=== PATIENT | male | born 1950 | race Caucasian/White ===

== ENCOUNTER 2019-12-21 18:35 | Emergency (ER) | payer OTHER, MEDICARE, SELFPAY ==
--- NOTE | ~2019-12-21 | XR_ITS ---
EXAMINATION: XR elbow RT min 3V EXAM DATE: 12/21/2019 19:08 INDICATION: Initial encounter following injury, with pain of the right elbow. TECHNIQUE: Right elbow frontal, lateral with flexion, and oblique projections obtained and reviewed. There is no prior study for comparison. FINDINGS: Right elbow anterior humeral line intact. There is acute nondisplaced closed posttraumati c fracture through the right radial head. There is evidence of a joint hemarthrosis. No other suspici ous findings. IMPRESSION: Acute nondisplaced right radial head fracture. Reviewed, dictated and finalized at location A.
--- NOTE | ~2019-12-21 | XR_ITS ---
EXAMINATION: XR shoulder RT min 2V EXAM DATE: 12/21/2019 19:08 INDICATION: Initial encounter following injury, with pain of the right elbow. TECHNIQUE: The following right shoulder projections obtained: frontal projection with internal rotati on, frontal projection with external rotation, Grashey, and scapular Y view (4+ views). Comparison is made to prior examination from 01/28/2019. FINDINGS: Sternotomy wires. No evidence of right shoulder rotator cuff calcific tendinosis. There i s mild glenohumeral and acromioclavicular joint primary osteoarthritis. There are no acute fractures or dislocations identified. There is no subcutaneous gas. The soft tissue is unremarkable. There is aortic arteriosclerosis. IMPRESSION: No acute osseous findings. Reviewed, dictated and finalized at location A. IMPRESSION: No acute osseous findings.
[2019-12-21 18:37] VITALS: BP 149/52; PULSE 60; RESP 18; TEMP 36.3; O2SAT 96
[2019-12-21 19:07] VITALS: BP 148/68; PULSE 56; RESP 18; TEMP 36.6; O2SAT 95
[2019-12-21] MEDS: ACETAMINOPHEN 500 MG TABLET 1000 MG PO (20:03)
--- NOTE | 2019-12-21 20:25 | ED.UPPEXIN ---
HPI - Extremity Injury (Upper) General Chief Complaint: Extremity Injury, Upper <RYAN Santos Last Filed: 12/21/19 20:33> Stated Complaint: fall <RYAN Santos Last Filed: 12/21/19 20:33> Time Seen by Provider: 12/21/19 19:29 <RYAN Santos Last Filed: 12/21/19 20:33> Source: patient <RYAN Santos Last Filed: 12/21/19 20:33> Mode of arrival: ambulatory <RYAN Santos Last Filed: 12/21/19 20:33> Limitations: no limitations <RYAN Santos Last Filed: 12/21/19 20:33> History of Present Illness HPI narrative: This is a 69 year old male that presents to the ER for a fall today. Reports he was walking down stairs and tripped on the last step. Reports landing on his right side. Denies hitting his head or loss of consciousness. Reports pain of his right shoulder and right elbow. Denies numbness or decreased ROM. <RYAN Santos Last Filed: 12/21/19 20:33> Related Data Home Medications: Home Medications Medication Instructions Recorded Confirmed amlodipine 10 mg tablet 10 mg PO DAILY 08/25/19 levothyroxine 50 mcg tablet 50 mcg PO DAILY 08/25/19 metoprolol tartrate 50 mg tablet 50 mg PO Q12H 08/25/19 insulin aspart U-100 100 unit/mL 20 unit SUB-Q TID ml 11/11/19 subcutaneous solution insulin glargine 100 unit/mL (3 30 unit SUB-Q DAILY ml 11/11/19 mL) subcutaneous pen <RYAN Santos Last Filed: 12/21/19 20:33> Allergies/Adverse Reactions: Allergies Allergy/AdvReac Type Severity Reaction Status Date / Time Penicillins Allergy Unknown Rash Verified 11/11/19 14:33 BIRD FEATHERS Allergy Mild COUGHING Uncoded 08/25/19 11:04 <RYAN Santos Last Filed: 12/21/19 20:33> Review of Systems Review of Systems: Narrative: CONSTITUTIONAL: Denies fever MUSCULOSKELETAL: Reports joint pain, and myalgia. NEUROLOGIC: Denies numbness, or weakness. <Gogo Sheriff PA-C - Last Filed: 12/21/19 20:33> All systems reviewed & are unremarkable except as noted in HPI and below <Gogo Sheriff PA-C - Last Filed: 12/21/19 20:33> PMFSH Past Medical History Medical History: Medical History (Updated 12/21/19 @ 20:32 by Gogo Sheriff PA-C) Acromioclavicular joint arthritis Chronic kidney disease, stage III (moderate) Coronary artery disease involving [place] coronary artery of [place] heart History of stroke with current residual effects HLD (hyperlipidemia) Hypothyroidism Right shoulder pain Rotator cuff tear Type 2 diabetes mellitus with hyperglycemia (03/30/16) <Gogo Sheriff PA-C - Last Filed: 12/21/19 20:33> Surgical History Surgical History: Surgical History (Updated 12/21/19 @ 20:29 by Gogo Sheriff PA-C) S/P coronary artery stent placement <Gogo Sheriff PA-C - Last Filed: 12/21/19 20:33> Social History Social History: Social History (Updated 11/11/19 @ 14:33 by Heather Rose) Smoking status: Never smoker Second hand tobacco smoke exposure: No Alcohol intake: never Substance use: never Substance use type: does not use Gender identity (if verbalized by the patient): Male <Gogo Sheriff PA-C - Last Filed: 12/21/19 20:33> Exam Narrative: Exam Narrative: GENERAL: Well-appearing, well-nourished, and in no acute distress. HEAD: Normocephalic, atraumatic. EYES: EOMI. CHEST: Clear to auscultation. No respiratory distress. No wheezes rales or rhonchi HEART: Regular rate and rhythm. No murmur heard. Normal peripheral pulses. EXTREMITIES: Normal range of motion. No obvious deformity. Mild swelling and bruising to the right elbow. Normal sensation. Normal radial pulses SKIN: Warm, dry, no rash. NEURO: No focal deficits. Alert and oriented x3. PSYCH: Normal mood and affect <Gogo Sheriff PA-C - Last Filed: 12/21/19 20:33> Course Consultations Consultation #1: Spoke with Dr. Wallace about patient work-up will follow-up
[2019-12-21 20:58] VITALS: BP 134/74; PULSE 53; RESP 16; TEMP 36.6; O2SAT 95
== END 2019-12-21 21:10 | disposition home or self-care (01) ==
PROVIDERS: Emergency Provider General Practice; PCP Family Medicine
DX: M25.511 Pain in right shoulder (principal); S52.124A Nondisplaced fracture of head of right radius, initial encounter for closed fracture; M19.019 Primary osteoarthritis, unspecified shoulder; E11.22 Type 2 diabetes mellitus with diabetic chronic kidney disease; E11.65 Type 2 diabetes mellitus with hyperglycemia; N18.3 Chronic kidney disease, stage 3 (moderate); Z79.4 Long term (current) use of insulin; I25.10 Atherosclerotic heart disease of native coronary artery without angina pectoris; E78.5 Hyperlipidemia, unspecified; E03.9 Hypothyroidism, unspecified; Z95.5 Presence of coronary angioplasty implant and graft; W10.9XXA Fall (on) (from) unspecified stairs and steps, initial encounter
CPT/HCPCS: 73030; 73080; 99284; A4565; A9270

== ENCOUNTER 2020-01-20 11:55 | Outpatient (CLI) | payer MEDICARE, SELFPAY ==
--- NOTE | ~2020-01-20 | US_ITS ---
EXAMINATION:US venous doppler LE BI INDICATION:Leg edema TECHNIQUE: Multiple grayscale, color flow and Doppler images of the lower extremity deep venous syste ms were obtained and reviewed. COMPARISON:Ultrasound dated 03/30/2019 FINDINGS: The common femoral, superficial femoral and popliteal veins demonstrate normal respiratory variation, augmentation and compressibility. Color flow is also seen within the posterior tibial, pe roneal, greater saphenous and profunda veins. IMPRESSION: 1: No lower extremity deep venous thrombosis. Reviewed, dictated and finalized at location A.
[2020-01-20 12:36] LABS: Basophils Percent Auto 0.5 % (0.2-1.2); Eosinophils Absolute Auto 0.2 K/mm3 (0-0.3); Eosinophils Percent Auto 3.8 % (0-4.4); Hematocrit 47.3 % (42.0-52.0); Hemoglobin 15.5 g/dL (14.0-18.0); Immature Granulocyte Absolute 0.03 K/mm3 (0.00-0.031); Immature Granulocyte Percent A 0.5 % (0-0.5); Immature Platelet Fraction Pct 3.5 % (0.9-11.2); Lymphocytes Absolute Auto 1.43 K/mm3 (0.9-3.2); Mean Corpuscular HGB Conc 32.8 g/dl (32-36); Mean Corpuscular Hemoglobin 27.1 pg (26-34); Mean Corpuscular Volume 82.5 fl (80-100); Mean Platelet Volume 10.8 fl (7.4-10.4); Monocytes Absolute Auto 0.5 K/mm3 (0.1-0.6); Monocytes Percent Auto 9.8 % (2.6-8.5); Neutrophils Absolute Auto 3.3 K/mm3 (1.3-6.7); Neutrophils Percent Auto 59.4 % (45.5-73.1); Platelet Count Result 139 k/mm3 (150-375); Red Blood Count 5.73 M/mm3 (4.6-6.20); Red Cell Distribution Width 14.4 % (11.5-14.5); White Blood Count 5.5 K/mm3 (4.5-10.0)
[2020-01-20 13:52] LABS: Blood Urea Nitrogen 20 mg/dL (9-20); Calcium 8.6 mg/dL (8.4-10.2); Carbon Dioxide 29 mmol/L (22-30); Chloride 102 mmol/L (98-107); Estimated Glomerular Filt Rate 55; Glucose 156 mg/dL (75-110); Sodium 136 mmol/L (137-145)
[2020-01-20 14:01] LABS: NT Pro B Type Natriuretic Pept 147 PG/ML (5-100)
== END 2020-01-20 11:56 | disposition home or self-care (01) ==
PROVIDERS: PCP Family Medicine; Visit Provider Physician Assistant
DX: R06.02 Shortness of breath (principal); I11.9 Hypertensive heart disease without heart failure; R60.9 Edema, unspecified; M79.606 Pain in leg, unspecified
CPT/HCPCS: 36415; 80048; 83880; 84443; 85025; 85055; 93970

== ENCOUNTER 2020-07-01 07:53 | Outpatient (CLI) | payer MEDICARE, SELFPAY ==
--- NOTE | ~2020-07-01 | US_ITS ---
EXAMINATION: US art doppler w press BERHANE RODRIGUEZ EXAM DATE: 07/01/2020 08:44 INDICATION: I73.9 - Peripheral vascular disease, unspecified PVD. TECHNIQUE: Segmental pressures and plethysmographic and Doppler waveforms of the brachial and lower e xtremity arteries were obtained. There is no prior study for comparison. FINDINGS: Right and left brachial artery pressures of 124 mm Hg and 136 mm Hg, respectively, are concordant (no rmal difference <= 30 mmHg). RIGHT LEG: The ankle-brachial index (VEE) is 1.20 (normal >= 0.9-1). The great toe-brachial index (TBI) is 0.82 (normal >= 0.65). The lower extremity ratios, segmental pressure gradients as follows; Proximal superficial femoral artery:- Could not obtain ( mmHg). Distal superficial femoral artery: ----- Could not obtain ( mmHg). Popliteal: Could not obtain ( mmHg). Dorsalis pedis: 1.20 (163 mmHg). Posterior tibial: 1.08 (147 mmHg). (Normal gradients <= 20-30 mmHg between adjacent levels on the same leg or the same levels on the two legs). Arterial waveforms are biphasic common femoral, monophasic below. LEFT LEG: The ankle-brachial index (VEE) is 1.20 (normal >= 0.9-1). The great toe-brachial index (TBI) is 0.97 (normal >= 0.65). The lower extremity ratios, segmental pressure gradients as follows; Proximal superficial femoral artery:- Could not obtain ( mmHg). Distal superficial femoral artery: ----- Could not obtain ( mmHg). Popliteal: Could not obtain ( mmHg). Dorsalis pedis: 1.13 (154 mmHg). Posterior tibial: 1.20 (163 mmHg). (Normal gradients <= 20-30 mmHg between adjacent levels on the same leg or the same levels on the two legs). Arterial waveforms are biphasic common femoral, monophasic below. IMPRESSION: 1. Right ankle-brachial index 1.20, normal. 2. Left ankle-brachial index 1.20, normal. Reviewed, dictated and finalized at location A. 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
== END 2020-07-01 07:54 | disposition home or self-care (01) ==
LOC: ANHIMG 07:54
PROVIDERS: PCP Family Medicine; Visit Provider Internal Medicine Critical Care Medicine
DX: I70.203 Unspecified atherosclerosis of native arteries of extremities, bilateral legs (principal)
CPT/HCPCS: 93923

== ENCOUNTER 2021-02-15 09:15 | Outpatient (CLI) | payer MEDICARE, SELFPAY ==
--- NOTE | ~2021-02-15 | US_ITS ---
EXAMINATION: US carotid duplex BI DATE: 02/15/2021 10:21 INDICATION: Transient cerebral ischemic attack. TECHNIQUE: Grayscale, color Doppler, and pulsed Doppler images of the cervical carotid arteries were obtained. The degree of vessel stenosis is placed in one of the following categories: normal, <50%, 5 0-69%, >=70% but less than near-occlusion, near-occlusion, or total occlusion. Note that percent sten osis relative to normal distal artery lumen diameter is indirectly measured from velocity measurement s as described by Jesus, et al. Radiology 2003; 229:340-346. COMPARISON: None. FINDINGS: RIGHT: The right common carotid artery (CCA) peak systolic velocity (PSV) is 57 cm/s. The right internal car otid artery (ICA) PSV is 77 cm/s. The right ICA end-diastolic velocity (EDV) is 16 cm/s. The right IC A/CCA PSV ratio is 1.3. Grayscale and color Doppler images yield an estimate of <50% diameter reducti on from plaque in the ICA. There is antegrade flow in the right vertebral artery. LEFT: The left CCA PSV is 72 cm/s. The left ICA PSV is 69 cm/s. The left ICA EDV is 10 cm/s. The left ICA/C CA PSV ratio is 0.9. Grayscale and color Doppler images yield an estimate of <50% diameter reduction from plaque in the ICA. There is antegrade flow in the left vertebral artery. IMPRESSION: 1. <50% stenosis in the right internal carotid artery. 2. <50% stenosis in the left internal carotid artery. Reviewed, dictated and finalized at location A.
== END 2021-02-15 09:16 | disposition home or self-care (01) ==
PROVIDERS: PCP Family Medicine; Visit Provider Family Medicine
DX: I65.23 Occlusion and stenosis of bilateral carotid arteries (principal); R07.89 Other chest pain
CPT/HCPCS: 93880

== ENCOUNTER → 2021-04-11 15:08 | Outpatient (CLI) | payer MEDICARE, SELFPAY ==
--- NOTE | ~2021-04-11 | XR_ITS ---
EXAMINATION: XR chest 2V DATE: 04/11/2021 16:10 INDICATION: COVID-19 pneumonia. TECHNIQUE: Frontal and lateral views of the chest were obtained. COMPARISON: Chest 2 views 07/08/2018, chest CT 03/30/2019 FINDINGS: There is no pneumonia, pleural effusion, or pneumothorax. Cardiomegaly is noted. Median talha rnotomy wires and mediastinal surgical clips are seen, likely from prior coronary artery bypass graft ing. There is a closure device of the left atrial appendage. There are prominent paracardial fat pads . IMPRESSION: 1. Cardiomegaly. Reviewed, dictated and finalized at location A. IMPRESSION: 1. Cardiomegaly.
== END ==
PROVIDERS: PCP Family Medicine; Visit Provider Physician Assistant
DX: U07.1 COVID-19 (principal); I51.7 Cardiomegaly
CPT/HCPCS: 71046

== ENCOUNTER 2021-04-25 12:40 | Observation (INO) | payer MEDICARE, SELFPAY ==
[2021-04-25] VITALS (24 sets, daily range): BP systolic 109–155; BP diastolic 66–92; PULSE 59–86; RESP 14–26; TEMP 35.9–36.8; O2SAT 91–100; BMI 41.4
--- NOTE | ~2021-04-25 | XR_ITS ---
EXAMINATION: XR chest 2V EXAM DATE: 04/25/2021 13:07 INDICATION: Substernal chest pain. TECHNIQUE: Frontal and lateral projections of the chest obtained and reviewed. Comparison is made to prior examination from 04/11/2021. FINDINGS: Sternotomy wires are present without findings to suggest sternal dehiscence. The lungs are clear. There are no pleural effusions. Cardiac silhouette is prominent but magnified on this AP te chnique. There is no pneumothorax suspected. Patient has diffuse idiopathic skeletal hyperostosis (DISH). IMPRESSION: No acute cardiopulmonary findings. Reviewed, dictated and finalized at location B.
--- NOTE | 2021-04-25 12:39 | ECG_ITS ---
Measurements Intervals [place] Rate: 66 P: 18 WV: 197 QRS: 16 QRSD: 104 T: 43 QT: 400 QTc: 421 Interpretive Statements SINUS RHYTHM VENTRICULAR PREMATURE COMPLEX LOW QRS VOLTAGE IN PRECORDIAL LEADS INCOMPLETE RIGHT BUNDLE BRANCH BLOCK INFERIOR INFARCT, AGE INDETERMINATE ABNORMAL ECG Electronically Signed On 04-25-2021 12:49:43 CDT by Nolan Spap D.O.
[2021-04-25 12:57] LABS: Basophils Absolute Auto 0.1 K/mm3 (0.0-0.1); Basophils Percent Auto 1.1 % (0.2-1.2); Eosinophils Absolute Auto 0.4 K/mm3 (0-0.3); Eosinophils Percent Auto 6.4 % (0-4.4); Hematocrit 44.4 % (42.0-52.0); Hemoglobin 14.3 g/dL (14.0-18.0); Immature Granulocyte Absolute 0.01 K/mm3 (0.00-0.031); Immature Granulocyte Percent A 0.2 % (0-0.5); Lymphocytes Absolute Auto 1.61 K/mm3 (0.9-3.2); Lymphocytes Percent Auto 29.6 % (18.3-44.2); Mean Corpuscular HGB Conc 32.2 g/dl (32-36); Mean Corpuscular Hemoglobin 28.5 pg (26-34); Mean Corpuscular Volume 88.4 fl (80-100); Mean Platelet Volume 11.8 fl (7.4-10.4); Monocytes Absolute Auto 0.5 K/mm3 (0.1-0.6); Monocytes Percent Auto 8.8 % (2.6-8.5); Neutrophils Absolute Auto 2.9 K/mm3 (1.3-6.7); Neutrophils Percent Auto 53.9 % (45.5-73.1); Platelet Count Result 189 k/mm3 (150-375); Red Blood Count 5.02 M/mm3 (4.6-6.20); Red Cell Distribution Width 15.3 % (11.5-14.5); White Blood Count 5.4 K/mm3 (4.5-10.0)
[2021-04-25 13:11] LABS: INR 0.9; Prothrombin Time 12.5 Seconds (11.1-14.7)
[2021-04-25 13:12] LABS: Partial Thromboplastin Time 26.4 SECONDS (22.3-36.8)
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
[2021-04-25 13:57] LABS: Anion Gap 4 mmol/L (8-16); Blood Urea Nitrogen 26 mg/dL (9-20); Carbon Dioxide 26 mmol/L (22-30); Chloride 108 mmol/L (98-107); Estimated CRCL calculation 61 ml/min; Estimated Glomerular Filt Rate 50; Glucose 176 mg/dL (65-110); Potassium 4.4 mmol/L (3.4-5.0); Sodium 138 mmol/L (137-145)
[2021-04-25 14:10] LABS: Troponin I 0.018 ng/mL (0.000-0.034)
--- NOTE | 2021-04-25 16:28 | PC.NURSE ---
Spoke with pt because about requesting to be transferred to [facility]. Pt requesting to find out the wait time for a bed at [facility]. Dr Padilla to speak with pt's road inspector & access line. Informed pt & family of waiting a call back from [facility]
[2021-04-25 18:18] LABS: Troponin I 0.018 ng/mL (0.000-0.034)
--- NOTE | 2021-04-25 18:46 | PC.NURSE ---
Pt arrived to [facility] from the ER at 1843. No complaints at this time
[2021-04-25 21:46] LABS: Troponin I 0.021 ng/mL (0.000-0.034)
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
[2021-04-25] MEDS: hydrALAZINE HCL 25 MG TABLET PO (22:32)
[2021-04-25] MEDS: METOPROLOL TARTRATE 50 MG TAB PO (22:32)
[2021-04-25] MEDS: GABAPENTIN 300 MG CAPSULE PO (22:33)
[2021-04-25] MEDS: INSULIN ASPART (*BKC) 100 UNITS/ML 10 UNITS SUB-Q (22:48)
[2021-04-26] VITALS: BP 129/92; PULSE 54; PULSE 56; RESP 14; TEMP 36.7; O2SAT 96
[2021-04-26 02:00] VITALS: PULSE 53
[2021-04-26 04:00] VITALS: BP 133/48; PULSE 51; RESP 16; TEMP 36.6; O2SAT 94
[2021-04-26] MEDS: LEVOTHYROXINE SODIUM 50 MCG TABLET PO (05:33)
[2021-04-26 05:51] LABS: Basophils Absolute Auto 0.1 K/mm3 (0.0-0.1); Basophils Percent Auto 1.1 % (0.2-1.2); Eosinophils Absolute Auto 0.4 K/mm3 (0-0.3); Eosinophils Percent Auto 7.7 % (0-4.4); Hematocrit 43.6 % (42.0-52.0); Hemoglobin 13.9 g/dL (14.0-18.0); Immature Granulocyte Absolute 0.01 K/mm3 (0.00-0.031); Immature Granulocyte Percent A 0.2 % (0-0.5); Immature Platelet Fraction Pct 4.7 % (0.9-11.2); Lymphocytes Absolute Auto 1.45 K/mm3 (0.9-3.2); Lymphocytes Percent Auto 27.3 % (18.3-44.2); Mean Corpuscular HGB Conc 31.9 g/dl (32-36); Mean Corpuscular Hemoglobin 27.8 pg (26-34); Mean Corpuscular Volume 87.2 fl (80-100); Mean Platelet Volume 10.7 fl (7.4-10.4); Monocytes Absolute Auto 0.5 K/mm3 (0.1-0.6); Neutrophils Absolute Auto 2.9 K/mm3 (1.3-6.7); Neutrophils Percent Auto 54.7 % (45.5-73.1); Platelet Count Result 141 k/mm3 (150-375); White Blood Count 5.3 K/mm3 (4.5-10.0)
[2021-04-26 06:00] VITALS: PULSE 51
[2021-04-26 06:07] LABS: Lactic Acid Reflex 1.1 mmol/L (0.7-2.1)
[2021-04-26 06:40] LABS: Alanine Aminotransferase 25 U/L (4-50); Albumin Level 3.3 g/dL (3.5-5.1); Alkaline Phosphatase 79 U/L (38-126); Anion Gap 7 mmol/L (8-16); Aspartate Amino Transferase 24 U/L (17-59); Bilirubin,Total 0.6 mg/dL (0.2-1.3); Blood Urea Nitrogen 26 mg/dL (9-20); CRP < 0.5 mg/dL (<1.0); Calcium 8.9 mg/dL (8.4-10.2); Carbon Dioxide 29 mmol/L (22-30); Chloride 103 mmol/L (98-107); Estimated CRCL calculation 60 ml/min; Estimated Glomerular Filt Rate 50; Glucose 138 mg/dL (65-110); Magnesium 2.1 mg/dL (1.6-2.3); Potassium 4.2 mmol/L (3.4-5.0); Sodium 139 mmol/L (137-145)
[2021-04-26 07:19] LABS: Hemoglobin A1C 8.4 % (<5.7)
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
[2021-04-26 08:00] VITALS: BP 154/77; PULSE 54; PULSE 56; RESP 18; TEMP 36.7; O2SAT 95
--- NOTE | 2021-04-26 09:59 | PM.DS ---
DS: Admitting Diagnosis Discharge Date 04/26/2021 Admitting Diagnosis chest pain DS: Discharge Diagnosis Discharge Diagnosis (1) Chest pain: Code(s): R07.9 - Chest pain, unspecified Status: Acute Assessment and Plan: troponins negative x3 in no recurrence. No signs of ACS. 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 No signs of PE such as hypoxia or pleuritic chest pain. Patient states he has a problem with his aortic valve that they watch every 6 months. His next appointment is next month. He has a long history of coronary artery disease with a 4 vessel CABG and 2 cardiac stents. continue home medications (2) Hypertension: Qualifiers: Hypertension type: essential hypertension Qualified Code(s): I10 - Essential (primary) hypertension Code(s): I10 - Essential (primary) hypertension Status: Acute Assessment and Plan: last blood pressure 154/77 prior to home medications. Will continue with home meds (3) Obstructive sleep apnea syndrome in adult: Code(s): G47.33 - Obstructive sleep apnea (adult) (pediatric) Status: Acute Assessment and Plan: continue CPAP (4) Hypertensive heart disease without congestive heart failure: Code(s): I11.9 - Hypertensive heart disease without heart failure Status: Acute Assessment and Plan: as above (5) Diabetic polyneuropathy associated with type 2 diabetes mellitus: Code(s): E11.42 - Type 2 diabetes mellitus with diabetic polyneuropathy Status: Acute Assessment and Plan: A1c 8.4, continue with home medications and follow up with primary care physician. Stressed better control and diabetes care/ diet (6) Hypothyroidism: Code(s): E03.9 - Hypothyroidism, unspecified Status: Chronic Assessment and Plan: TSH within normal limits. continue levothyroxine DS: Summary Hospital Course Hospital Course: DOS 04/26/21 Patient is a 70-year-old male who presented emergency room for chest pain that he classified as central and it is sharp and nonradiating. He initially took nitro was not improve symptoms but when he called 911 and EMS came the nitro did help him. He sees Dr. Dejesus outpt. vitals in the ER were 36.8? C, pulse 68, respiratory rate 14, blood pressure 131/78, pulse ox 95 on room air. CBC within normal limits. BMP showed creatinine 1.4, BUN 26, chloride 108, sodium 138, potassium 4.4, CO2 26, glucose 176. Chest x-ray negative. EKG showed sinus rhythm, PVCs, nonspecific ST changes and incomplete right bundle-branch block. patient was admitted to the hospitalist service and observed. His troponins were negative x3. He had no recurrence of chest pain or evidence of heart failure or PE. Cardiology did see the patient in consult. No signs of ACS. Pt okay to f/u with postdoctoral scholar outpt. Instructed to come back to ER or call 911 with any further chest pain. No signs of PE (such as SOB, ROLLE, tachycardia, leg swelling or hypoxia). No hx of PE. Low likelyhood of CP being caused by PE. Okay for d/c. Pt still works and I recommended he take a week off to see if he has further CP and then he can go back to work after seeing his PCP. Time Spent with Patient Time attestation: Total time spent providing and/or coordinating discharge services: 38 minutes Time spent: Greater than 30 minutes Exam Narrative: General: Well developed well nourished patient in NAD HEENT: normocephalic Neck: supple Neuro: Alert and oriented x4 CV:RRR with systolic murmur. Telemetry showing sinus rhythm. No palpable chest pain Resp:CTA Abd: Soft, non distended. No pain to palpation. Positive bowel sounds Extremities: No swelling, erythema, or pain to palpation. DS: Data Data Completed and Pending Labs on day of discharge: Labs from last 24 hours 04/26/21 04/26/21 04/26/21 05:32 05:32
[2021-04-26] MEDS: ASPIRIN 81 MG ENTERIC TABLET PO (10:23)
[2021-04-26] MEDS: hydrALAZINE HCL 25 MG TABLET PO (10:23)
[2021-04-26 10:24] VITALS: PULSE 60
[2021-04-26] MEDS: lisinopriL 20 MG TABLET PO (10:24)
[2021-04-26] MEDS: METOPROLOL TARTRATE 50 MG TAB PO (10:24)
[2021-04-26] MEDS: GABAPENTIN 300 MG CAPSULE PO (10:25)
[2021-04-26] MEDS: OMEGA 3 POLYUNSAT FATTY ACIDS 1 GM CAP PO (10:25)
[2021-04-26] MEDS: amLODIPine BESYLATE 5 MG TABLET PO (10:25)
[2021-04-26] MEDS: POTASSIUM CHLORIDE 20 MEQ TABLET.ER PO (10:25)
[2021-04-26] MEDS: ATORVASTATIN 40 MG TABLET 80 MG PO (10:25)
[2021-04-26] MEDS: CLOPIDOGREL BISULFATE 75 MG TABLET PO (10:25)
[2021-04-26] MEDS: FUROSEMIDE 40 MG TABLET 80 MG PO (10:26)
[2021-04-26] MEDS: CHOLECALCIFEROL 1,000 UNITS TABLET 5000 UNITS PO (10:26)
== END 2021-04-26 10:54 | disposition home or self-care (01) ==
LOC: ANHED 12:52 → ANHCPC 19:18
PROVIDERS: Nurse Practitioner; Admitting Provider Internal Medicine; Emergency Provider Emergency Medicine; PCP Family Medicine; Visit Provider Physician Assistant
DX: R07.9 Chest pain, unspecified (principal); I25.10 Atherosclerotic heart disease of native coronary artery without angina pectoris; I12.9 Hypertensive chronic kidney disease with stage 1 through stage 4 chronic kidney disease, or unspecified chronic kidney disease; N18.30 Chronic kidney disease, stage 3 unspecified; E11.22 Type 2 diabetes mellitus with diabetic chronic kidney disease; E11.42 Type 2 diabetes mellitus with diabetic polyneuropathy; I35.0 Nonrheumatic aortic (valve) stenosis; I45.10 Unspecified right bundle-branch block; E78.5 Hyperlipidemia, unspecified; E03.9 Hypothyroidism, unspecified; Z95.1 Presence of aortocoronary bypass graft; Z95.5 Presence of coronary angioplasty implant and graft; Z79.4 Long term (current) use of insulin; Z79.82 Long term (current) use of aspirin; Z79.02 Long term (current) use of antithrombotics/antiplatelets; Z86.73 Personal history of transient ischemic attack (TIA), and cerebral infarction without residual deficits
CPT/HCPCS: 36415; 71046; 80048; 80053; 83036; 83605; 83735; 84443; 84484; 85025; 85055; 85610; 85730; 86140; 93005; 99285; A9270; G0378; J1815

== ENCOUNTER → 2021-08-08 09:36 | Outpatient (CLI) | payer MEDICARE, SELFPAY ==
--- NOTE | ~2021-08-08 | CT_ITS ---
EXAMINATION:CT diagnostic chest wo con DATE: 08/08/2021 10:19 INDICATION: Solitary pulmonary nodule. Abnormal findings on diagnostic imaging. TECHNIQUE: Computed tomography (CT) of the chest was performed without intravenous contrast. Automate d exposure control and iterative reconstruction technique were employed. The dose-length product (DLP ) was 728.80 mGy-cm. COMPARISON: Chest CT 03/30/2019, chest 2 views 04/25/2021 FINDINGS: The lungs demonstrate mild atelectasis. There is a 6 mm nodule in right lung upper lobe. No pleural effusion. Cardiomegaly is noted. There are coronary artery calcifications. There are changes of coronary artery bypass grafting. There are calcifications of the aortic valve. No pericardial eff usion. There are calcified subcutaneous masses in right posterior thorax, likely fat necrosis. There are bridging endplate osteophytes at multiple levels in the spine, consistent with diffuse idiopathic skeletal hyperostosis (DISH). IMPRESSION: 1. 6 mm pulmonary nodule, stable from 03/30/2019, likely benign. Reviewed, dictated and finalized at location B. [employer]PERATIONS AGENT
== END ==
PROVIDERS: PCP Family Medicine; Visit Provider Family Medicine
DX: R91.1 Solitary pulmonary nodule (principal)
CPT/HCPCS: 71250

== ENCOUNTER 2022-03-07 14:29 | Emergency (ER) | payer MEDICARE, SELFPAY ==
--- NOTE | 2022-03-07 14:31 | ED.EXTPRO ---
HPI - Extremity Problem General Chief complaint: Extremity Problem,Nontraumatic Stated complaint: right leg swelling Time Seen by Provider: 03/07/22 14:45 Source: patient and RN notes reviewed Mode of arrival: ambulatory Limitations: no limitations History of Present Illness HPI Narrative: 71-year-old male presents to the [facility] with right lower leg swelling. Patient stating that he is extremely concerned for a DVT. Discussed with patient and that we do not have the capabilities of ruling them out. Patient willing to transfer to [facility] ER Patient is a known diabetic, cardiac history, high cholesterol, heart failure Related Data Home Medications Medication Instructions Recorded Confirmed levothyroxine 50 mcg tablet 50 mcg PO DAILY 08/25/19 03/07/22 insulin aspart U-100 100 unit/mL 20 unit subcut TID 11/11/19 03/07/22 subcutaneous solution (Novolog U-100 Insulin aspart) aspirin 81 mg capsule 81 mg PO DAILY 04/25/21 03/07/22 cholecalciferol (vitamin D3) 125 125 mcg PO DAILY 04/25/21 03/07/22 mcg (5,000 unit) tablet (Vitamin D3) furosemide 40 mg tablet (Lasix) 80 mg PO DAILY 04/25/21 03/07/22 garlic 1,000 mg capsule 1,000 mg PO DAILY 04/25/21 03/07/22 omega-3 fatty acids-vitamin E 1 cap PO DAILY 04/25/21 03/07/22 1,000 mg capsule potassium chloride 20 mEq 20 meq PO DAILY 04/25/21 03/07/22 tablet,extended release(part/cryst) (Klor-Con M) amlodipine 5 mg tablet 5 mg PO DAILY 03/07/22 03/07/22 hydralazine 25 mg tablet 25 mg PO DAILY 03/07/22 03/07/22 triamcinolone acetonide 0.1 % 0.1 applic topical DAILY 03/07/22 03/07/22 topical ointment Allergies Allergy/AdvReac Type Severity Reaction Status Date / Time Penicillins Allergy Unknown Rash Verified 03/07/22 14:31 BIRD FEATHERS Allergy Mild COUGHING Uncoded 03/07/22 14:31 Review of Systems Review of Systems: All systems reviewed & are unremarkable except as noted in HPI and below Constitutional: Constitutional: Reports no additional constitutional complaints, Denies chills and Denies fever(s) Eyes: Eyes: Reports no additional eye complaints ENT: Reports system reviewed and no additional complaints, except as documented Cardiovascular: Cardiovascular: Reports as per HPI and Reports leg edema (right) Respiratory: Respiratory: Reports no additional respiratory complaints Gastrointestinal: Gastrointestinal: Reports no additional gastrointestinal complaints Musculoskeletal: Musculoskeletal: Reports as per HPI and Reports other (Pain, swelling and redness right lower leg) Integumentary/Breasts: Skin/Breast: Reports system reviewed and no additional complaints, except as docu Neurologic: Reports system reviewed and no additional complaints, except as documented Psychiatric: Psychiatric: Reports no additional psychiatric complaints Allergic/Immunologic: Allergic/Immunologic: Reports no additional allergic/immunologic complaints PMFSH Past Medical History Medical History Abscess of skin Acromioclavicular joint arthritis Bilateral lower extremity edema Chronic kidney disease, stage III (moderate) Closed fracture of head of radius Coronary artery disease involving [place] coronary artery of [place] heart History of stroke with current residual effects HLD (hyperlipidemia) Hypothyroidism Right shoulder pain Rotator cuff tear Type 2 diabetes mellitus with hyperglycemia (03/30/16) Surgical History Surgical History H/O local excision of skin lesion History of extraction of renal calculus History of open heart surgery Four vessel CABG S/P coronary artery stent placement 2 stent Family History Family History Father Family history of anemia Family history of diabetes mellitus in first degree relative Mother Family history of anemia Family history of alcoholism Cerebrov
[2022-03-07 14:38] VITALS: BP 151/51; PULSE 53; RESP 16; TEMP 37.4; O2SAT 94
[2022-03-07 14:43] VITALS: BP 151/51; PULSE 53; RESP 16; TEMP 37.4; O2SAT 94
== END 2022-03-07 14:50 | disposition short-term general hospital (02) ==
LOC: EXPCOLL 14:31
PROVIDERS: Emergency Provider Nurse Practitioner
DX: M79.661 Pain in right lower leg (principal); M79.89 Other specified soft tissue disorders; I13.10 Hypertensive heart and chronic kidney disease without heart failure, with stage 1 through stage 4 chronic kidney disease, or unspecified chronic kidney disease; E11.22 Type 2 diabetes mellitus with diabetic chronic kidney disease; N18.30 Chronic kidney disease, stage 3 unspecified; Z79.4 Long term (current) use of insulin; I25.10 Atherosclerotic heart disease of native coronary artery without angina pectoris; Z86.73 Personal history of transient ischemic attack (TIA), and cerebral infarction without residual deficits; E78.5 Hyperlipidemia, unspecified; E03.9 Hypothyroidism, unspecified; Z95.5 Presence of coronary angioplasty implant and graft; Z79.82 Long term (current) use of aspirin
CPT/HCPCS: 99212; G0463

== ENCOUNTER 2022-03-20 11:30 | Outpatient (CLI) | payer MEDICARE, SELFPAY ==
[2022-03-20 11:51] LABS: Basophils Percent Auto 0.4 % (0.2-1.2); Eosinophils Absolute Auto 0.2 K/mm3 (0-0.3); Eosinophils Percent Auto 2.8 % (0-4.4); Hematocrit 44.9 % (42.0-52.0); Hemoglobin 14.3 g/dL (14.0-18.0); Immature Granulocyte Absolute 0.04 K/mm3 (0.00-0.031); Immature Granulocyte Percent A 0.6 % (0-0.5); Lymphocytes Absolute Auto 1.45 K/mm3 (0.9-3.2); Lymphocytes Percent Auto 21.3 % (18.3-44.2); Mean Corpuscular HGB Conc 31.8 g/dl (32-36); Mean Corpuscular Hemoglobin 27.1 pg (26-34); Mean Corpuscular Volume 85.2 fl (80-100); Mean Platelet Volume 10.3 fl (7.4-10.4); Monocytes Absolute Auto 0.4 K/mm3 (0.1-0.6); Monocytes Percent Auto 5.3 % (2.6-8.5); Neutrophils Absolute Auto 4.7 K/mm3 (1.3-6.7); Neutrophils Percent Auto 69.6 % (45.5-73.1); Platelet Count Result 161 k/mm3 (150-375); Red Blood Count 5.27 M/mm3 (4.6-6.20); Red Cell Distribution Width 14.7 % (11.5-14.5); White Blood Count 6.8 K/mm3 (4.5-10.0)
[2022-03-20 11:57] LABS: Alanine Aminotransferase 31 U/L (6-50); Albumin Level 3.8 g/dL (3.5-5.1); Alkaline Phosphatase 151 U/L (38-126); Anion Gap 9 mmol/L (8-16); Aspartate Amino Transferase 25 U/L (17-59); Bilirubin,Total 0.6 mg/dL (0.2-1.3); Blood Urea Nitrogen 23 mg/dL (9-20); Calcium 8.3 mg/dL (8.4-10.2); Carbon Dioxide 28 mmol/L (22-30); Chloride 100 mmol/L (98-107); Estimated Glomerular Filt Rate 54; Glucose 316 mg/dL (65-110); Potassium 3.9 mmol/L (3.4-5.0); Sodium 137 mmol/L (137-145)
== END 2022-03-20 11:31 | disposition home or self-care (01) ==
LOC: ANHLAB 11:32
PROVIDERS: PCP Family Medicine; Visit Provider Physician Assistant
DX: L03.90 Cellulitis, unspecified (principal); I10 Essential (primary) hypertension; I11.9 Hypertensive heart disease without heart failure
CPT/HCPCS: 36415; 80053; 85025

== ENCOUNTER 2022-03-23 09:18 | Outpatient (CLI) | payer MEDICARE, SELFPAY ==
--- NOTE | ~2022-03-23 | CT_ITS ---
EXAMINATION: CT abdomen pelvis wo con DATE: 03/23/2022 10:00 INDICATION: Right lower quadrant abdominal pain TECHNIQUE: Computed tomography (CT) of the abdomen and pelvis was performed without intravenous contr ast. The dose-length product was 1577.67 mGy-cm. . Automated exposure control and iterative reconstru ction technique were employed. COMPARISON: No prior studies for comparison. . FINDINGS: Lung bases are unremarkable. There is focal extrapleural fat in the right middle lobe, of n o clinical significance. There is dependent atelectasis. Cardiomegaly. There is atherosclerosis of th e aorta and coronary arteries. There is subcutaneous infiltration of the fat at the level of the umbi licus. Cannot exclude cellulitis. Clinically correlate. Nonobstructive bowel gas pattern. The liver, spleen, pancreas, adrenal glands and kidneys are unremarkable. Gallbladder is present. Normal caliber appendix without surrounding inflammation. Bladder is decompressed limiting evaluation for wall thic kening. No abnormal pelvic masses or fluid collections. There are are borderline sized retroperitonea l lymph nodes, likely reactive. No free air or free fluid. Moderate lower thoracic and lumbar spondyl osis. IMPRESSION: 1. Induration of the periumbilical subcutaneous fat. Consider cellulitis in the appropriate clinical setting. 2: Cardiomegaly. Reviewed, dictated and finalized at location A.
== END 2022-03-23 09:19 | disposition home or self-care (01) ==
PROVIDERS: PCP Family Medicine; Visit Provider Physician Assistant
DX: R10.9 Unspecified abdominal pain (principal); I51.7 Cardiomegaly
CPT/HCPCS: 74176

== ENCOUNTER 2022-06-08 14:25 | Outpatient (CLI) | payer MEDICARE, SELFPAY ==
[2022-06-08 14:59] LABS: Basophils Percent Auto 0.7 % (0.2-1.2); Eosinophils Absolute Auto 0.1 K/mm3 (0-0.3); Eosinophils Percent Auto 2.5 % (0-4.4); Hematocrit 45.6 % (42.0-52.0); Hemoglobin 14.5 g/dL (14.0-18.0); Immature Granulocyte Absolute 0.04 K/mm3 (0.00-0.031); Immature Granulocyte Percent A 0.7 % (0-0.5); Lymphocytes Absolute Auto 1.48 K/mm3 (0.9-3.2); Lymphocytes Percent Auto 26.6 % (18.3-44.2); Mean Corpuscular HGB Conc 31.8 g/dl (32-36); Mean Corpuscular Volume 84.8 fl (80-100); Mean Platelet Volume 11.7 fl (7.4-10.4); Monocytes Absolute Auto 0.5 K/mm3 (0.1-0.6); Monocytes Percent Auto 8.3 % (2.6-8.5); Neutrophils Absolute Auto 3.4 K/mm3 (1.3-6.7); Neutrophils Percent Auto 61.2 % (45.5-73.1); Platelet Count Result 157 k/mm3 (150-375); Red Blood Count 5.38 M/mm3 (4.6-6.20); Red Cell Distribution Width 14.3 % (11.5-14.5); White Blood Count 5.6 K/mm3 (4.5-10.0)
[2022-06-08 15:02] LABS: Alanine Aminotransferase 28 U/L (6-50); Albumin Level 3.9 g/dL (3.5-5.1); Alkaline Phosphatase 119 U/L (38-126); Anion Gap 8 mmol/L (8-16); Aspartate Amino Transferase 28 U/L (17-59); Bilirubin,Total 0.9 mg/dL (0.2-1.3); Blood Urea Nitrogen 20 mg/dL (9-20); Calcium 8.6 mg/dL (8.4-10.2); Carbon Dioxide 28 mmol/L (22-30); Chloride 101 mmol/L (98-107); Estimated Glomerular Filt Rate 50; Glucose 302 mg/dL (65-110); Potassium 4.1 mmol/L (3.4-5.0); Sodium 137 mmol/L (137-145)
[2022-06-08 15:08] LABS: NT Pro B Type Natriuretic Pept 681 pg/mL (5-100)
== END 2022-06-08 14:26 | disposition home or self-care (01) ==
PROVIDERS: PCP Family Medicine; Visit Provider Physician Assistant
DX: I50.9 Heart failure, unspecified (principal); L03.119 Cellulitis of unspecified part of limb
CPT/HCPCS: 36415; 80053; 83880; 85025

== ENCOUNTER 2022-11-14 19:10 | Emergency (ER) | payer MEDICARE, SELFPAY ==
[2022-11-14 19:24] VITALS: BP 134/74; PULSE 62; RESP 16; TEMP 36.4; O2SAT 96
[2022-11-14 21:38] VITALS: BP 195/86; PULSE 54; RESP 13; O2SAT 94
--- NOTE | 2022-11-14 21:39 | ED.GENADULT ---
HPI - General Adult General Chief complaint: Skin/Abscess/Foreign Body Stated complaint: possible cellulitis Time Seen by Provider: 11/14/22 21:07 History of Present Illness HPI narrative: A 72-year-old male presenting ED with chief complaint of lower extremity redness And pain. Patient noticed that yesterday he had a very mild redness to his left lower extremity with some edema. Patient has a history of cellulitis in the past that he has treated successfully with Keflex. Patient says that he came in now because he wanted to get ahead of it. He denies fever, chills, nausea, vomiting or diarrhea. His blood sugars have been under control. He denies any abscesses or boils. Patient has been taking his Lasix for heart failure as directed Related Data Home Medications Medication Instructions Recorded Confirmed levothyroxine 50 mcg tablet 50 mcg PO DAILY 08/25/19 08/08/22 insulin aspart U-100 100 unit/mL 20 unit subcut TID 11/11/19 08/08/22 subcutaneous solution (Novolog U-100 Insulin aspart) aspirin 81 mg capsule 81 mg PO DAILY 04/25/21 08/08/22 cholecalciferol (vitamin D3) 125 125 mcg PO DAILY 04/25/21 08/08/22 mcg (5,000 unit) tablet (Vitamin D3) garlic 1,000 mg capsule 1,000 mg PO DAILY 04/25/21 08/08/22 omega-3 fatty acids-vitamin E 1 cap PO DAILY 04/25/21 08/08/22 1,000 mg capsule triamcinolone acetonide 0.1 % 0.1 applic topical DAILY 03/07/22 08/08/22 topical ointment furosemide 40 mg tablet (Lasix) 60 mg PO DAILY 05/01/22 08/08/22 Allergies Allergy/AdvReac Type Severity Reaction Status Date / Time Penicillins Allergy Unknown Rash Verified 11/14/22 21:38 BIRD FEATHERS Allergy Mild COUGHING Uncoded 11/14/22 21:38 PMFSH Past Medical History Medical History Abscess of skin Acromioclavicular joint arthritis Bilateral lower extremity edema Chronic kidney disease, stage III (moderate) Closed fracture of head of radius Coronary artery disease involving [place] coronary artery of [place] heart History of stroke with current residual effects HLD (hyperlipidemia) Hypothyroidism Right shoulder pain Rotator cuff tear Type 2 diabetes mellitus with hyperglycemia (03/30/16) Surgical History Surgical History H/O local excision of skin lesion History of extraction of renal calculus History of open heart surgery Four vessel CABG S/P coronary artery stent placement 2 stent Family History Family History Father Family history of anemia Family history of diabetes mellitus in first degree relative Mother Family history of anemia Family history of alcoholism Cerebrovascular accident Family history of coronary artery disease Family history of heart disease in male family member before age 55 Sibling Hypertension Other Family history of cataracts Family history of congestive heart failure Family history of hearing loss Social History Social History Social History: the patient is and lives with his who is a durable [id number] for healthcare. The patient is a full code. The patient retired from a [employer] and various other jobs. 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 He has 4 children. Is a lifelong nonsmoker he is [employer]. He does not smoke or drink. 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
[2022-11-14 21:47] LABS: Glucose Point of Care 240 mg/dl (65-105)
[2022-11-14] MEDS: CEPHALEXIN 500 MG CAPSULE PO (22:45)
[2022-11-14 22:58] VITALS: BP 180/85; PULSE 72; RESP 17; O2SAT 98
== END 2022-11-14 22:58 | disposition home or self-care (01) ==
PROVIDERS: Emergency Provider Emergency Medicine; PCP Family Medicine
DX: L03.116 Cellulitis of left lower limb (principal); E11.22 Type 2 diabetes mellitus with diabetic chronic kidney disease; N18.30 Chronic kidney disease, stage 3 unspecified; I25.10 Atherosclerotic heart disease of native coronary artery without angina pectoris; I50.9 Heart failure, unspecified; E03.9 Hypothyroidism, unspecified; E78.5 Hyperlipidemia, unspecified; M19.019 Primary osteoarthritis, unspecified shoulder; Z87.442 Personal history of urinary calculi; Z95.1 Presence of aortocoronary bypass graft; Z95.5 Presence of coronary angioplasty implant and graft; Z79.82 Long term (current) use of aspirin; Z79.4 Long term (current) use of insulin
CPT/HCPCS: 82948; 99283; A9270

== ENCOUNTER 2023-02-11 09:50 | Inpatient (IN) | payer MEDICARE, SELFPAY ==
[2023-02-11] VITALS (12 sets, daily range): BP systolic 90–155; BP diastolic 70–77; PULSE 47–70; RESP 17–32; TEMP 36.5–37.2; O2SAT 94–97; BMI 42.7
--- NOTE | ~2023-02-11 | US_ITS ---
EXAMINATION: US venous doppler [facility] DATE: 02/11/2023 12:04 INDICATION: Lower limb pain and swelling. TECHNIQUE: Grayscale ultrasound images without and with compression and Doppler ultrasound images of the bilateral lower extremity veins were obtained. COMPARISON: Ultrasound 01/20/2020 FINDINGS: The visualized portions of right common femoral vein, profunda (deep) femoral vein, femoral vein, pop liteal vein, peroneal veins, posterior tibial veins, and greater saphenous vein outflow are patent. The visualized portions of left common femoral vein, profunda femoral vein, femoral vein, popliteal v ein, peroneal veins, posterior tibial veins, and greater saphenous vein outflow are patent. IMPRESSION: 1. No deep venous thrombosis. Reviewed, dictated and finalized at location A.
--- NOTE | ~2023-02-11 | XR_ITS ---
Clinical Indication: Shortness of breath PA and lateral views of the chest: Comparison: 04/25/2021 Findings: There is central pulmonary venous congestive change. No pleural effusion or pneumothorax. C ardiomediastinal silhouette is within normal limits. Bones and soft tissues are unremarkable. Impression: Central pulmonary venous congestive change. Reviewed, dictated and finalized at location . Impression: Central pulmonary venous congestive change.
--- NOTE | 2023-02-11 10:11 | ECG_ITS ---
Measurements Intervals [place] Rate: 58 P: 33 DC: 221 QRS: 25 QRSD: 158 T: 20 QT: 415 QTc: 411 Interpretive Statements SINUS BRADYCARDIA WITH FIRST DEGREE AV BLOCK VENTRICULAR COUPLET AND VENTRICULAR PREMATURE COMPLEX RIGHT BUNDLE BRANCH BLOCK CONSIDER INFERIOR INFARCT, AGE INDETERMINATE BASELINE ARTIFACT- I, II, III, AVR, AVF ABNORMAL ECG COMPARED TO ECG 04/25/2021 12:42:40 SINUS BRADYCARDIA NOW PRESENT FIRST DEGREE AV BLOCK NOW PRESENT RIGHT BUNDLE-BRANCH BLOCK NOW PRESENT Electronically Signed On 02-11-2023 13:53:42 CDT by Nolan Sapp D.O.
[2023-02-11 10:21] LABS: Basophils Absolute Auto 0.1 K/mm3 (0.0-0.1); Basophils Percent Auto 0.8 % (0.2-1.2); Eosinophils Absolute Auto 0.2 K/mm3 (0-0.3); Hemoglobin 14.6 g/dL (14.0-18.0); Immature Granulocyte Absolute 0.07 K/mm3 (0.00-0.031); Immature Granulocyte Percent A 0.9 % (0-0.5); Immature Platelet Fraction Pct 6.3 % (0.9-11.2); Lymphocytes Absolute Auto 1.27 K/mm3 (0.9-3.2); Lymphocytes Percent Auto 16.6 % (18.3-44.2); Mean Corpuscular HGB Conc 31.7 g/dl (32-36); Mean Corpuscular Hemoglobin 26.9 pg (26-34); Mean Corpuscular Volume 84.9 fl (80-100); Mean Platelet Volume 11.6 fl (7.4-10.4); Monocytes Absolute Auto 0.8 K/mm3 (0.1-0.6); Monocytes Percent Auto 10.9 % (2.6-8.5); Neutrophils Absolute Auto 5.2 K/mm3 (1.3-6.7); Neutrophils Percent Auto 67.8 % (45.5-73.1); Platelet Count Result 139 k/mm3 (150-375); Red Blood Count 5.42 M/mm3 (4.6-6.20); Red Cell Distribution Width 15.1 % (11.5-14.5); White Blood Count 7.6 K/mm3 (4.5-10.0)
--- NOTE | 2023-02-11 10:23 | ED.GENADULT ---
HPI - General Adult General Chief complaint: Shortness of Breath/Dyspnea <Jameel Meek PA-C - Last Filed: 02/11/23 18:25> Stated complaint: diff breathing <Jameel Meek PA-C - Last Filed: 02/11/23 18:25> Time Seen by Provider: 02/11/23 10:07 <Jameel Meek PA-C - Last Filed: 02/11/23 18:25> Source: patient <RYAN Castellanos Last Filed: 02/11/23 18:25> Mode of arrival: ambulatory <Jameel Meek PA-C - Last Filed: 02/11/23 18:25> Limitations: no limitations <RYAN Castellanos Last Filed: 02/11/23 18:25> History of Present Illness HPI narrative: This is a 72-year-old male with PMH of CAD, CHF, insulin-dependent diabetes who presents to the ED with chief complaint of dyspnea onset 3 days ago. Patient states that he tried to go to work but was unable to last more than a couple of hours and had to go home due to shortness of breath on exertion. He reports that he has had some increasing swelling in his bilateral lower extremities as well. He was treated a couple of weeks ago for cellulitis by his primary care doctor. He states that this did not help the swelling. States he has been taking his normal dose of 40 mg twice daily of Lasix. He also endorses productive cough over the last couple of days, states sputum is clear. Denies fevers, chills, chest pain, abdominal pain, nausea, vomiting. Per triage note he has increased his Lasix dose, however patient tells me that he has not increased the dose in the last couple of days. <Jameel Meek PA-C - Last Filed: 02/11/23 18:25> Related Data Home medications: Home Medications Medication Instructions Recorded Confirmed levothyroxine 50 mcg tablet 50 mcg PO DAILY 08/25/19 02/11/23 insulin aspart U-100 100 unit/mL See Rx Instructions .Route .COMPLEX 11/11/19 02/11/23 subcutaneous solution (Novolog U-100 Insulin aspart) aspirin 81 mg capsule 81 mg PO DAILY 04/25/21 02/11/23 cholecalciferol (vitamin D3) 125 125 mcg PO DAILY 04/25/21 02/11/23 mcg (5,000 unit) tablet (Vitamin D3) garlic 1,000 mg capsule 1,000 mg PO DAILY 04/25/21 02/11/23 furosemide 40 mg tablet (Lasix) 80 mg PO DAILY 05/01/22 02/11/23 amlodipine 5 mg tablet 5 mg PO DAILY 02/11/23 02/11/23 clopidogrel 75 mg tablet 75 mg PO DAILY 02/11/23 02/11/23 gabapentin 300 mg capsule 300 mg PO Q12H 02/11/23 02/11/23 glimepiride 2 mg tablet 2 mg PO USEASDIRECTD 02/11/23 02/11/23 insulin degludec 200 unit/mL (3 50 unit subcut DAILY 02/11/23 02/11/23 mL) subcutaneous pen (Tresiba FlexTouch U-200 insulin) isosorbide mononitrate 30 mg 30 mg PO DAILY 02/11/23 02/11/23 tablet,extended release 24 hr <Jameel Meek PA-C - Last Filed: 02/11/23 18:25> Allergies/adverse reactions: Allergies Allergy/AdvReac Type Severity Reaction Status Date / Time Penicillins Allergy Unknown Rash Verified 02/11/23 15:33 BIRD FEATHERS Allergy Mild COUGHING Uncoded 02/11/23 15:33 <RYAN Castellanos Last Filed: 02/11/23 18:25> [facility] Past Medical History Medical History: Medical History (Updated 02/13/23 @ 16:28 by Harvinder Brown MD) Aortic stenosis Benign prostatic hyperplasia Cerebrovascular accident (2005) No residual deficits. Chronic kidney disease, stage III (moderate) Coronary artery disease involving [place] coronary artery of [place] heart Status post CABG in 2008 (FREDIS-LAD, jump radial to D1 to CX/OM, SVG-RPL), PCI in 2018 (drug-eluting stent to OM1 and proximal RCA). Diabetic peripheral neuropathy Dyslipidemia Heart failure with reduced ejection fraction Mid range EF of 48% in January 2022. Hypertension Hypothyroidism Insulin dependent type 2 diabetes mellitus Obstructive sleep apnea <Jameel Meek PA-C - Last Filed: 02/11/23 18:25> Surgical History Surgical History: Surgical History (Updated 02/11/23 @ 15:38 by Amie Reid PA-C) History of bilateral cataract extraction History of carpal tunnel release History of coronary ar
[2023-02-11 10:29] LABS: Alanine Aminotransferase 32 U/L (6-50); Albumin Level 3.4 g/dL (3.5-5.1); Alkaline Phosphatase 105 U/L (38-126); Anion Gap 5 mmol/L (8-16); Aspartate Amino Transferase 23 U/L (17-59); Bilirubin,Total 0.8 mg/dL (0.2-1.3); Blood Urea Nitrogen 22 mg/dL (9-20); Calcium 8.3 mg/dL (8.4-10.2); Carbon Dioxide 25 mmol/L (22-30); Chloride 104 mmol/L (98-107); Estimated Glomerular Filt Rate 60; Glucose 242 mg/dL (65-110); Potassium 4.5 mmol/L (3.4-5.0); Sodium 134 mmol/L (137-145)
[2023-02-11 11:05] LABS: NT Pro B Type Natriuretic Pept 1820 pg/mL (19.9-100)
[2023-02-11 12:12] LABS: Glucose Point of Care 190 mg/dl (65-105)
--- NOTE | 2023-02-11 13:00 | PC.NURSE ---
pt O2 was 92% sitting and dropped to 87% RA walking 20ft. Pt O2 returned to 96%when he sat down on bed.
--- NOTE | 2023-02-11 13:10 | ECG_ITS ---
Measurements Intervals [place] Rate: 50 P: 41 TN: 213 QRS: 21 QRSD: 158 T: 10 QT: 449 QTc: 410 Interpretive Statements SINUS BRADYCARDIA WITH FIRST DEGREE AV BLOCK VENTRICULAR TRIGEMINY RIGHT BUNDLE BRANCH BLOCK INFERIOR INFARCT, AGE INDETERMINATE BASELINE ARTIFACT- II, III, AVF ABNORMAL ECG COMPARED TO ECG 02/11/2023 10:09:03 NO SIGNIFICANT CHANGES Electronically Signed On 02-12-2023 7:08:28 CDT by Nolan Sapp D.O.
[2023-02-11] MEDS: FUROSEMIDE INJ 40 MG/4 ML VIAL 20 MG IV PUSH ×2 (14:12→17:00)
--- NOTE | 2023-02-11 15:28 | PM.IMHP ---
H&P: HPI History of Present Illness Date/Time: 02/11/23 16:30 Chief Complaint: Shortness of breath. Narrative: This is a 72-year-old male with congestive heart failure with an EF of 48% in January 2022, coronary artery disease status post CABG, dyslipidemia, chronic kidney disease, hypothyroidism, and insulin-dependent diabetes who presented to the emergency department via private vehicle from home for evaluation of shortness of breath. The patient provides the following history. A couple of weeks ago he was diagnosed with bilateral lower extremity cellulitis for which he completed a course of antibiotics with improvement in the pain and redness. However the swelling in his legs have remained despite him taking extra doses of his Lasix. Saturday at work he began to feel short of breath and had to leave early and since that time he has had increasing dyspnea on lesser and lesser exertion. He has not been sleeping well due to orthopnea. He has a cough which is mostly nonproductive but at times he does have some clear phlegm,. Vital signs were stable on arrival to the emergency department. ProBNP was elevated chest x-ray shows central pulmonary venous congestive changes. He is being admitted in this setting for diuresis for CHF exacerbation. At the time my evaluation he is resting comfortably and has no specific complaints. He denies syncope, near syncope, chest pain, pleuritic pain, palpitations, nausea, vomiting, and sweats. He states compliance with his home medications. He does not add extra salt to his food however he drinks a lot of diet soda and he wonders if that contains sodium. Review of Systems Review of Systems: Twelve systems were reviewed and are negative except for as per HPI. [facility] Past Medical History Medical History (Updated 02/11/23 @ 15:40 by Amie Reid PA-C) Aortic stenosis Benign prostatic hyperplasia Cerebrovascular accident (2005) No residual deficits. Chronic kidney disease, stage III (moderate) Coronary artery disease involving [place] coronary artery of [place] heart Status post CABG in 2008 (FREDIS-LAD, jump radial to D1 to CX/OM, SVG-RPL), PCI in 2019 (drug-eluting stent to OM1 and proximal RCA). Diabetic peripheral neuropathy Dyslipidemia Heart failure with reduced ejection fraction Mid range EF of 48% in January 2022. Hypertension Hypothyroidism Insulin dependent type 2 diabetes mellitus Obstructive sleep apnea Surgical History Surgical History (Updated 02/11/23 @ 15:38 by Amie Reid PA-C) History of bilateral cataract extraction History of carpal tunnel release History of coronary artery stent placement (07/14/19) Drug-eluting stent to OM1 and proximal RCA. History of extraction of renal calculus History of four vessel coronary artery bypass graft (2008) FREDIS-LAD, jump radial to D1 to CX/OM, SVG-RPL. History of left atrial appendage closure Status post surgical removal of malignant neoplasm of skin Family History Family History Father Family history of anemia Family history of diabetes mellitus in first degree relative Mother Family history of anemia Family history of alcoholism Cerebrovascular accident Family history of coronary artery disease Family history of heart disease in male family member before age 55 Sibling Hypertension Other Family history of cataracts Family history of congestive heart failure Family history of hearing loss Social History Social History (Updated 02/11/23 @ 16:13 by Amie Reid PA-C) Social History: Surrogate medical decision maker: Catie Morejon, spouse. Code status: Do not resuscitate. Smoking status: Never smoker Second hand tobacco smoke exposure: No Alcohol intake: never Substance use: never Substance use type: does not use Lack of Transportation: No Lack of Food: Never True Current Housing: I Have Housing Concerned About Future Housing: No Diff
--- NOTE | 2023-02-11 15:32 | ADMGEN ---
This patient, Ranjeet Morejon, was admitted to 3 [facility] Surg Room 314-02. Patient/family oriented to hospital policies and general routines including ID bracelet, bed and alarms, visiting hours, pain management, procedures, bathroom and other care routines, personal items, smoking policy, room service/diet, and visiting hours. Information on how to activate the Rapid Response Team has been discussed. Patient/Family are encouraged to report perceived risks to care and to ask questions if they do not understand what they are told or what they should do.
--- NOTE | 2023-02-11 15:44 | ECHO_ITS ---
Patient Info Name: Ranjeet Morejon Age: 72 years : 1950 Gender: Male Ht: 70 in Wt: 292 lbs BSA: 2.62 m2 HR: 47 bpm BP: 90 / 74 mmHg Heart Rhythm: Sinus Rhythm Technical Quality: Poor Exam Date: 02/11/2023 4:12 PM Exam Location: [facility] Patient Status: Outpatient Admit Date: 02/11/2023 Staff Ordering Physician: Amie Reid PA-C Seals Engraver: Keli Srivastava RDCS Attending Provider: Ihsan Shane MD Referring Physician: Franklin TERRELL; Exam Type: CA echo dop color flow w con Study Info Indications - chf exacerbation, cad, htn Complete two-dimensional, color flow and Doppler transthoracic echocardiogram is performed with contrast to opacify the left ventricle and to improve the deliniation of the left ventricle endocardial borders. Contrast/Agitated Saline Contrast/Ag. Saline: Definity Amount: 3.00 ml Administered By: Keli Srivastava RDCS Existing IV Access: Yes IV Access Condition: patent with no signs of infiltration Summary 1. Technically difficult study with limited views. Definity contrast enhancement administered. 2. Left ventricular chamber dimension is mildly enlarged. 3. Left ventricular systolic function is normal, estimated at 55-60%. 4. There is mildly increased left ventricular wall thickness. 5. Left ventricular septal wall motion is abnormal with septal motion related to bundle branch block. 6. The left ventricular diastolic function is abnormal. 7. There is no thrombus visualized in the left ventricle. 8. Left atrial chamber dimension is severely enlarged. 9. Right atrial chamber dimension is moderately enlarged. 10. There is moderate to severe aortic valve stenosis with a peak velocity of 326.93 cm/s, mean gradient of 19 mmHg, and aortic valve area of 0.85 cm2. 11. There is mild mitral valve regurgitation. 12. There is mild tricuspid valve regurgitation. 13. Mild pulmonary hypertension, estimated pulmonary arterial systolic pressure is 38 mmHg. 14. Frequent premature ventricular contractions. Left Ventricle Left ventricular chamber dimension is mildly enlarged. Left ventricular systolic function is normal, estimated at 55-60%. There is mildly increased left ventricular wall thickness. Left ventricular septal wall motion is abnormal with septal motion related to bundle branch block. The left ventricular diastolic function is abnormal. There is no thrombus visualized in the left ventricle. Technically difficult study with limited views. Definity contrast enhancement administered. Right Ventricle Right ventricular chamber dimension is normal. Right ventricular systolic function is normal. Left Atria Left atrial chamber dimension is severely enlarged. Right Atria Right atrial chamber dimension is moderately enlarged. Aortic Valve The aortic valve is not well visualized. There is moderate to severe aortic valve stenosis with a peak velocity of 326.93 cm/s, mean gradient of 19 mmHg, and aortic valve area of 0.85 cm2. There is trace aortic valve regurgitation. Pulmonic Valve The pulmonic valve is not well visualized. Mitral Valve The mitral valve has normal leaflets. There is mild mitral valve regurgitation. The mitral valve annulus is mildly calcified. Tricuspid Valve The tricuspid valve leaflets are normal. There is mild tricuspid valve regurgitation. Mild pulmonary hypertension, estimated pulmonary arterial systolic pressure is 38 mmHg. Pericardium/Pleural The pericardium appears epicardial fat pad. There is trivial pericardial effusion. Inf
[2023-02-11 16:30] LABS: Hemoglobin A1C 9.4 % (<5.7)
[2023-02-11] MEDS: PERFLUTREN LIPID MICROSPHERES 1.5 ML VIAL DILUTED TO 10 ML TOTAL VOLUME IV PUSH (16:45)
[2023-02-11 16:57] LABS: Glucose Point of Care 158 mg/dl (65-105)
[2023-02-11] MEDS: POTASSIUM CHLORIDE 20 MEQ ER TABLET PO (17:00)
[2023-02-11] MEDS: GLIMEPIRIDE 2 MG TABLET PO (17:00)
[2023-02-11 20:48] LABS: Glucose Point of Care 221 mg/dl (65-105)
[2023-02-11] MEDS: INSULIN ASPART (*BKC) 100 UNITS/ML SUB-Q (22:04)
[2023-02-11] MEDS: GABAPENTIN 300 MG CAPSULE PO (22:04)
[2023-02-12] VITALS (11 sets, daily range): BP systolic 138–148; BP diastolic 47–88; PULSE 48–65; RESP 16–20; TEMP 36.3–36.4; O2SAT 93–97
[2023-02-12] MEDS: LEVOTHYROXINE SODIUM 50 MCG TABLET PO (05:59)
[2023-02-12 06:27] LABS: Hematocrit 49.1 % (42.0-52.0); Hemoglobin 15.4 g/dL (14.0-18.0); Mean Corpuscular HGB Conc 31.4 g/dl (32-36); Mean Corpuscular Hemoglobin 26.4 pg (26-34); Mean Corpuscular Volume 84.2 fl (80-100); Mean Platelet Volume 11.1 fl (7.4-10.4); Platelet Count Result 150 k/mm3 (150-375); Red Blood Count 5.83 M/mm3 (4.6-6.20); Red Cell Distribution Width 15.4 % (11.5-14.5); White Blood Count 8.9 K/mm3 (4.5-10.0)
[2023-02-12 06:46] LABS: Anion Gap 3 mmol/L (8-16); Blood Urea Nitrogen 18 mg/dL (9-20); Calcium 8.6 mg/dL (8.4-10.2); Carbon Dioxide 32 mmol/L (22-30); Chloride 101 mmol/L (98-107); Estimated CRCL calculation 75 ml/min; Estimated Glomerular Filt Rate > 60; Glucose 95 mg/dL (65-110); Magnesium 2.6 mg/dL (1.6-2.3); Potassium 3.9 mmol/L (3.4-5.0); Sodium 136 mmol/L (137-145)
[2023-02-12 08:05] LABS: Glucose Point of Care 105 mg/dl (65-105)
[2023-02-12] MEDS: INSULIN GLARGINE (*BKC) 100 UNITS/ML 25 UNITS SUB-Q (08:55)
[2023-02-12] MEDS: lisinopriL 20 MG TABLET 40 MG PO (09:02)
[2023-02-12] MEDS: METOPROLOL SUCCINATE EXT REL 50 MG TABCR PO (09:03)
[2023-02-12] MEDS: CHOLECALCIFEROL 1,000 UNITS TABLET 5000 UNITS PO (09:04)
[2023-02-12] MEDS: CLOPIDOGREL BISULFATE 75 MG TABLET PO (09:05)
[2023-02-12] MEDS: GABAPENTIN 300 MG CAPSULE PO ×2 (09:05→21:06)
[2023-02-12] MEDS: POTASSIUM CHLORIDE 20 MEQ ER TABLET PO ×2 (09:05→16:26)
[2023-02-12] MEDS: SERTRALINE HCL 25 MG TABLET PO (09:05)
[2023-02-12] MEDS: ISOSORBIDE MONONITRATE 30 MG TAB.ER.24H PO (09:06)
[2023-02-12] MEDS: amLODIPine BESYLATE 5 MG TABLET PO (09:06)
[2023-02-12] MEDS: ASPIRIN 81 MG CHEWABLE TABLET PO (09:06)
[2023-02-12] MEDS: GLIMEPIRIDE 2 MG TABLET PO ×2 (09:06→16:26)
[2023-02-12] MEDS: ATORVASTATIN 40 MG TABLET 80 MG PO (09:06)
[2023-02-12] MEDS: FUROSEMIDE INJ 40 MG/4 ML VIAL IV PUSH ×2 (09:07→16:26)
--- NOTE | 2023-02-12 11:21 | PC.NURSE ---
pt had an order in for 50 units of lantus to be given at 9 am. pt blood sugar was 105 [address] I [address] Shane about pt blood sugar at 0800. told this nurse to cut dose in half and give 25 units of lantus for the 9 am dose instead. Will monitor at this time.
[2023-02-12 11:53] LABS: Glucose Point of Care 310 mg/dl (65-105)
[2023-02-12] MEDS: INSULIN ASPART (*BKC) 100 UNITS/ML SUB-Q ×2 (11:57→21:06)
--- NOTE | 2023-02-12 12:25 | PM.IMPN ---
Progress Note: A&P Assessment and Plan (1) Acute on chronic congestive heart failure: Code(s): I50.9 - Heart failure, unspecified Status: Acute Assessment and Plan: Overall much improved. Continue diuretic therapy. Still has some lower extremity edema. Likely discharge tomorrow. (2) Coronary artery disease involving [place] coronary artery of [place] heart: Code(s): I25.10 - Atherosclerotic heart disease of [place] coronary artery without angina pectoris Status: Acute Assessment and Plan: No chest pain (3) Insulin dependent type 2 diabetes mellitus: Code(s): E11.9 - Type 2 diabetes mellitus without complications; Z79.4 - [facility] (current) use of insulin Status: Acute Assessment and Plan: Monitor blood sugar. (4) Hypertension: Qualifiers: Hypertension type: essential hypertension Qualified Code(s): I10 - Essential (primary) hypertension Code(s): I10 - Essential (primary) hypertension Status: Acute Assessment and Plan: Blood pressure looks pretty good. (5) Dyslipidemia: Code(s): E78.5 - Hyperlipidemia, unspecified Status: Acute (6) Hypothyroidism: Code(s): E03.9 - Hypothyroidism, unspecified Status: Chronic (7) Obstructive sleep apnea: Code(s): G47.33 - Obstructive sleep apnea (adult) (pediatric) Status: Acute Subjective Date/time seen: 02/12/23 12:25 Interval history: Feeling much better, denies significant shortness of breath Exam Narrative: General: Well-developed, nontoxic-appearing male in the semi-Thibodeaux position in bed. Weight: 35 kg. BMI: 42.7. HEENT: PERRL, EOMI. Sclera anicteric. Oral mucosa moist. Crowded oropharynx. Neck: Supple. Exam limited due to neck circumference. No obvious JVD. Respiratory: Mild conversational dyspnea; he appears in no respiratory distress. Lung sounds are a bit diminished at the bases with scattered crackles. Cardiovascular: Regular rate and rhythm with S1-S2. Distant heart sounds. Gastrointestinal: Abdomen is obese, nontender, nondistended with positive bowel sounds. Skin: Warm and dry. Faint erythema of the lower legs bilaterally related to swelling. Extremities: No cyanosis or clubbing. He has been pitting edema softening towards the thighs. Swelling is more evident on the left compared to the right and patient states this is a chronic finding following CABG graft in that leg. Neurological: Alert. Cranial nerves 2-12 are grossly intact. No gross focal deficits to casual conversation. Psychiatric: Pleasant and cooperative with normal mood and affect. Judgment and insight intact. He is in good spirits. Objective Data Vital Signs Vital Signs: Vital Signs - 24 hr 02/11/23 14:32 02/11/23 15:49 02/11/23 16:46 Temperature 99 F Pulse Rate 57 L Respiratory Rate 19 Blood Pressure 90/74 L 145/70 H Pulse Oximetry 94 96 Oxygen Delivery Room Air 02/11/23 16:00 02/11/23 20:00 02/11/23 21:18 Temperature 97.7 F Pulse Rate 51 L 67 60 Respiratory Rate 18 Blood Pressure 142/73 H Pulse Oximetry 95 Oxygen Delivery 02/11/23 20:00 02/12/23 00:00 02/12/23 04:00 Temperature Pulse Rate 52 L 59 L Respiratory Rate Blood Pressure Pulse Oximetry Oxygen Delivery Room Air 02/12/23 05:48 02/12/23 09:03 02/12/23 08:00 Temperature 97.6 F Pulse Rate 57 L 50 L 48 L Respiratory Rate 18 Blood Pressure 138/47 L Pulse Oximetry 97 Oxygen Delivery 02/12/23 08:00 Temperature Pulse Rate Respiratory Rate Blood Pressure Pulse Oximetry 96 Oxygen Delivery Room Air Intake/Output Intake/Output: Intake & Output 02/09/23 02/10/23 02/11/23 02/12/23 23:59 23:59 23:59 23:59 Intake Total 222 770 Balance 222 770 Meds/Results Medications: Active Medications Generic Name Dose Route Start Last Admin Trade Name Freq PRN Reason Stop Dose Admin Acetaminophen 650 mg 02/11/23 15:4
[2023-02-12 17:25] LABS: Glucose Point of Care 180 mg/dl (65-105)
[2023-02-12 21:08] LABS: Glucose Point of Care 220 mg/dl (65-105)
[2023-02-13] VITALS (11 sets, daily range): BP systolic 122–152; BP diastolic 63–76; PULSE 50–113; RESP 14–22; TEMP 36.3–36.9; O2SAT 92–98
[2023-02-13 03:56] LABS: Glucose Point of Care 89 mg/dl (65-105)
--- NOTE | 2023-02-13 04:01 | PCRCNOTE ---
patient refused use of hospital unit and stated that he feel claustrophobic in any mask that is not his own; RT tried to get patient to try hospital unit because that patient stated that he was compliant with use of home unit to no avail
[2023-02-13] MEDS: LEVOTHYROXINE SODIUM 50 MCG TABLET PO (06:23)
[2023-02-13 07:43] LABS: Glucose Point of Care 101 mg/dl (65-105)
[2023-02-13 08:03] LABS: Basophils Absolute Auto 0.1 K/mm3 (0.0-0.1); Basophils Percent Auto 0.7 % (0.2-1.2); Eosinophils Absolute Auto 0.2 K/mm3 (0-0.3); Eosinophils Percent Auto 2.7 % (0-4.4); Hematocrit 49.8 % (42.0-52.0); Hemoglobin 15.8 g/dL (14.0-18.0); Immature Granulocyte Absolute 0.03 K/mm3 (0.00-0.031); Immature Granulocyte Percent A 0.4 % (0-0.5); Lymphocytes Absolute Auto 1.61 K/mm3 (0.9-3.2); Lymphocytes Percent Auto 22.1 % (18.3-44.2); Mean Corpuscular HGB Conc 31.7 g/dl (32-36); Mean Corpuscular Hemoglobin 26.6 pg (26-34); Mean Corpuscular Volume 83.8 fl (80-100); Mean Platelet Volume 10.8 fl (7.4-10.4); Monocytes Absolute Auto 0.6 K/mm3 (0.1-0.6); Monocytes Percent Auto 8.4 % (2.6-8.5); Neutrophils Absolute Auto 4.8 K/mm3 (1.3-6.7); Neutrophils Percent Auto 65.7 % (45.5-73.1); Platelet Count Result 143 k/mm3 (150-375); Red Blood Count 5.94 M/mm3 (4.6-6.20); Red Cell Distribution Width 15.8 % (11.5-14.5); White Blood Count 7.3 K/mm3 (4.5-10.0)
[2023-02-13 08:12] LABS: Albumin Level 3.8 g/dL (3.5-5.1); Anion Gap 1 mmol/L (8-16); Blood Urea Nitrogen 23 mg/dL (9-20); Calcium 8.5 mg/dL (8.4-10.2); Carbon Dioxide 33 mmol/L (22-30); Chloride 103 mmol/L (98-107); Estimated CRCL calculation 73 ml/min; Estimated Glomerular Filt Rate > 60; Glucose 101 mg/dL (65-110); Magnesium 2.6 mg/dL (1.6-2.3); Phosphorus 3.4 mg/dL (2.5-4.5); Potassium 3.9 mmol/L (3.4-5.0); Sodium 137 mmol/L (137-145)
[2023-02-13] MEDS: CHOLECALCIFEROL 1,000 UNITS TABLET 5000 UNITS PO (08:51)
[2023-02-13] MEDS: amLODIPine BESYLATE 5 MG TABLET PO (08:52)
[2023-02-13] MEDS: FUROSEMIDE INJ 40 MG/4 ML VIAL IV PUSH ×2 (08:52→17:00)
[2023-02-13] MEDS: lisinopriL 20 MG TABLET 40 MG PO (08:52)
[2023-02-13] MEDS: GABAPENTIN 300 MG CAPSULE PO ×2 (08:52→20:42)
[2023-02-13] MEDS: ASPIRIN 81 MG CHEWABLE TABLET PO (08:52)
[2023-02-13] MEDS: ISOSORBIDE MONONITRATE 30 MG TAB.ER.24H PO (08:52)
[2023-02-13] MEDS: SERTRALINE HCL 25 MG TABLET PO (08:53)
[2023-02-13] MEDS: ATORVASTATIN 40 MG TABLET 80 MG PO (08:53)
[2023-02-13] MEDS: CLOPIDOGREL BISULFATE 75 MG TABLET PO (08:53)
[2023-02-13] MEDS: GLIMEPIRIDE 2 MG TABLET PO ×2 (08:53→17:00)
[2023-02-13] MEDS: METOPROLOL SUCCINATE EXT REL 50 MG TABCR PO (08:54)
[2023-02-13] MEDS: POTASSIUM CHLORIDE 20 MEQ ER TABLET PO ×2 (09:03→17:00)
[2023-02-13] MEDS: INSULIN GLARGINE (*BKC) 100 UNITS/ML 50 UNITS SUB-Q (09:05)
--- NOTE | 2023-02-13 09:27 | P.CDI_ITS ---
CDI Query Clarification Request Documented history of CHF. CHF noted in the assessment and plan. Lasix listed as a home medication. Patient receiving Lasix. BNP elevated on 02/11/23 lab work. Pulmonary vascular congestion noted on 02/11/23 chest xray. Patient presents with dyspnea on exertion and BLE edema. Please specify type and acuity of heart failure if known. * Acute * Chronic * Acute on Chronic * Unknown * Systolic * Diastolic * Combined Systolic and Diastolic * Unknown
[2023-02-13 11:36] LABS: Glucose Point of Care 217 mg/dl (65-105)
[2023-02-13] MEDS: INSULIN ASPART (*BKC) 100 UNITS/ML SUB-Q ×3 (12:28→20:42)
--- NOTE | 2023-02-13 13:52 | PM.IMPN ---
Progress Note: A&P Assessment and Plan (1) Acute on chronic congestive heart failure: Code(s): I50.9 - Heart failure, unspecified Status: Acute Assessment and Plan: Patient presents with complaints of shortness of breath. BNP was 1820. Chest x-ray showed pulmonary vascular congestion. Echocardiogram shows EF of 55-60% with abnormal diastolic dysfunction. He had septal wall motion abnormalities. He had moderate to severe aortic stenosis with an aortic valve area of 0.85cm2. Patient with acute on chronic diastolic CHF. His aortic valve disease contributing to his CHF. Patient feels much better with the IV diuretics. Clinically improved overall. Still with pedal edema and rales. Continue IV Lasix for today. Will add empagliflozin. (2) Aortic stenosis: Code(s): I35.0 - Nonrheumatic aortic (valve) stenosis Status: Acute Assessment and Plan: He has known . Echo showing severe aortic stenosis with an aortic valve area of 0.85cm2. He is being followed by has Mis Manager for this with frequent Echos. (3) Premature ventricular complex: Code(s): I49.3 - Ventricular premature depolarization Status: Acute Assessment and Plan: Patient having infrequent PVCs with different morphology. He is on metoprolol. Magnesium is normal. Potassium 3.9 but he is on oral potassium replacement. Will continue to follow. Called later in the day and informed the patient had a 12 beat run of possibly V-tach. On review, probably artifact but will consult cardiology about his frequent ectopy. (4) Coronary artery disease involving [place] coronary artery of [place] heart: Code(s): I25.10 - Atherosclerotic heart disease of [place] coronary artery without angina pectoris Status: Acute Assessment and Plan: No complaints of chest pain. EKG showed sinus bradycardia with first-degree AV block, PVCs with right bundle branch block. Continue metoprolol, Lipitor, Imdur, Plavix and aspirin. (5) Insulin dependent type 2 diabetes mellitus: Code(s): E11.9 - Type 2 diabetes mellitus without complications; Z79.4 - [facility] (current) use of insulin Status: Acute Assessment and Plan: A1c 9.4. The patient's blood glucose was reviewed on 02/13/23 Glucose remains mostly well controlled. Continue AccuCheks covering with sliding scale. Hypoglycemia protocol available as needed. Continue current medications. (6) Hypertension: Qualifiers: Hypertension type: essential hypertension Qualified Code(s): I10 - Essential (primary) hypertension Code(s): I10 - Essential (primary) hypertension Status: Acute Assessment and Plan: Patient's blood pressure was reviewed on 02/13/23 Blood pressure remains well controlled. Will continue current medications. (7) Obstructive sleep apnea: Code(s): G47.33 - Obstructive sleep apnea (adult) (pediatric) Status: Acute Assessment and Plan: Patient is compliant with his noninvasive ventilation machine at home. He does not use the BiPAP here. He is encouraged to. Subjective Date/time seen: 02/13/23 13:52 Interval history: 72yo male with CHF with an EF of 48% in January 2022, CAD status post CABG, dyslipidemia, CKD, hypothyroidism, and insulin-dependent diabetes who presents with shortness of breath.? Assuming care. Chart reviewed. Patient had a right knee cortisone injection recently. He feels shortness of breath is better. He states he feels ?back to normal?. He did not wear the BiPAP last night. He takes Lasix 80 mg daily chronically. He does to morning weights but did not contact his provider when he noted that his weight had gone up. Exam Narrative: AF 97.8 152/63 52 14 95% ra Gen - NARD sitting up in chair Chest - few baibasilar crackles, nml RR CV - irregularly irregular, 2/6 murmur USB. Tele showing frequent PVCs that are multifocal Abd - Soft, obese, NT Ext
[2023-02-13 16:39] LABS: Glucose Point of Care 271 mg/dl (65-105)
[2023-02-13 21:53] LABS: Glucose Point of Care 225 mg/dl (65-105)
[2023-02-14] VITALS: PULSE 69
[2023-02-14 01:11] VITALS: RESP 20; O2SAT 96
[2023-02-14 04:00] VITALS: PULSE 45
[2023-02-14 05:19] LABS: Glucose Point of Care 97 mg/dl (65-105)
[2023-02-14 05:41] VITALS: BP 147/71; PULSE 51; RESP 20; TEMP 36.3; O2SAT 96
[2023-02-14] MEDS: LEVOTHYROXINE SODIUM 50 MCG TABLET PO (06:06)
[2023-02-14 06:29] LABS: Albumin Level 3.8 g/dL (3.5-5.1); Anion Gap 8 mmol/L (8-16); Blood Urea Nitrogen 25 mg/dL (9-20); Calcium 8.4 mg/dL (8.4-10.2); Carbon Dioxide 32 mmol/L (22-30); Chloride 98 mmol/L (98-107); Estimated CRCL calculation 67 ml/min; Estimated Glomerular Filt Rate 60; Glucose 111 mg/dL (65-110); Magnesium 2.5 mg/dL (1.6-2.3); Phosphorus 3.9 mg/dL (2.5-4.5); Potassium 3.5 mmol/L (3.4-5.0); Sodium 138 mmol/L (137-145)
[2023-02-14 07:38] LABS: Glucose Point of Care 139 mg/dl (65-105)
[2023-02-14 08:00] VITALS: PULSE 51
--- NOTE | 2023-02-14 08:55 | PM.CNCAR ---
History of Present Illness History of Present Illness Consult date/time: 02/14/23 08:55 Requesting physician: Harvinder Brown MD Consult reason: congestive heart failure and Other (ectopy) Reason For Visit: CHF Exacerbation/Elevated BNP [facility] Past Medical History Medical History (Updated 02/13/23 @ 16:28 by Harvinder Brown MD) Aortic stenosis Benign prostatic hyperplasia Cerebrovascular accident (2005) No residual deficits. Chronic kidney disease, stage III (moderate) Coronary artery disease involving [place] coronary artery of [place] heart Status post CABG in 2008 (FREDIS-LAD, jump radial to D1 to CX/OM, SVG-RPL), PCI in 2019 (drug-eluting stent to OM1 and proximal RCA). Diabetic peripheral neuropathy Dyslipidemia Heart failure with reduced ejection fraction Mid range EF of 48% in January 2022. Hypertension Hypothyroidism Insulin dependent type 2 diabetes mellitus Obstructive sleep apnea Surgical History Surgical History (Updated 02/11/23 @ 15:38 by Amie Reid PA-C) History of bilateral cataract extraction History of carpal tunnel release History of coronary artery stent placement (07/14/19) Drug-eluting stent to OM1 and proximal RCA. History of extraction of renal calculus History of four vessel coronary artery bypass graft (2008) FREDIS-LAD, jump radial to D1 to CX/OM, SVG-RPL. History of left atrial appendage closure Status post surgical removal of malignant neoplasm of skin Family History Family History Father Family history of anemia Family history of diabetes mellitus in first degree relative Mother Family history of anemia Family history of alcoholism Cerebrovascular accident Family history of coronary artery disease Family history of heart disease in male family member before age 55 Sibling Hypertension Other Family history of cataracts Family history of congestive heart failure Family history of hearing loss Social History Social History (Updated 02/11/23 @ 16:13 by Amie Reid PA-C) Social History: Surrogate medical decision maker: Catie Morejon, spouse. Code status: Do not resuscitate. Smoking status: Never smoker Second hand tobacco smoke exposure: No Alcohol intake: never Substance use: never Substance use type: does not use Lack of Transportation: No Lack of Food: Never True Current Housing: I Have Housing Concerned About Future Housing: No Difficulty Paying Gas/Electric Bills: No Difficulty Paying for Meds: No Currently Unemployed: No Education: Master's Degree or Higher Difficulty w/ Childcare or Family Care: No Living arrangements: with family Additional living arrangements comments: Lives with in [place]. Four children. Occupation/Education: occupation Additional occupation/education comments: Still works part-time. Spiritual care concerns: No Meds Home Medications and Allergies Home Medications Medication Instructions Recorded Confirmed Type levothyroxine 50 mcg tablet 50 mcg PO DAILY 08/25/19 02/11/23 History insulin aspart U-100 100 unit/mL See Rx Instructions .Route .COMPLEX 11/11/19 02/11/23 History subcutaneous solution (Novolog U-100 Insulin aspart) aspirin 81 mg capsule 81 mg PO DAILY 04/25/21 02/11/23 History cholecalciferol (vitamin D3) 125 125 mcg PO DAILY 04/25/21 02/11/23 History mcg (5,000 unit) tablet (Vitamin D3) garlic 1,000 mg capsule 1,000 mg PO DAILY 04/25/21 02/11/23 History sertraline 25 mg tablet (Zoloft) 25 mg PO DAILY #90 tabs 01/31/22 02/11/23 Rx metoprolol succinate 50 mg capsule 50 mg PO DAILY #1 ea 03/27/22 02/11/23 Rx sprinkle, ext. release 24 hr furosemide 40 mg tablet (Lasix) 80 mg PO DAILY 05/01/22 02/11/23 History potassium chloride 20 mEq 20 meq PO BID #60 tabs 05/01/22 02/11/23 Rx tablet,extended release(part/cryst) (Klor-Con M) nitroglycerin 0.4 mg sublingual 0.4 mg sublingual Q5M
[2023-02-14] MEDS: ATORVASTATIN 40 MG TABLET 80 MG PO (09:07)
[2023-02-14] MEDS: ASPIRIN 81 MG CHEWABLE TABLET PO (09:07)
[2023-02-14] MEDS: amLODIPine BESYLATE 5 MG TABLET PO (09:07)
[2023-02-14] MEDS: CHOLECALCIFEROL 1,000 UNITS TABLET 5000 UNITS PO (09:07)
[2023-02-14] MEDS: lisinopriL 20 MG TABLET 40 MG PO (09:07)
[2023-02-14] MEDS: SERTRALINE HCL 25 MG TABLET PO (09:07)
[2023-02-14] MEDS: CLOPIDOGREL BISULFATE 75 MG TABLET PO (09:07)
[2023-02-14] MEDS: GABAPENTIN 300 MG CAPSULE PO (09:08)
[2023-02-14] MEDS: GLIMEPIRIDE 2 MG TABLET PO (09:08)
[2023-02-14] MEDS: METOPROLOL SUCCINATE EXT REL 50 MG TABCR PO (09:08)
[2023-02-14] MEDS: POTASSIUM CHLORIDE 20 MEQ ER TABLET PO (09:08)
[2023-02-14] MEDS: EMPAGLIFLOZIN 10 MG TABLET PO (09:08)
[2023-02-14] MEDS: ISOSORBIDE MONONITRATE 30 MG TAB.ER.24H PO (09:08)
[2023-02-14] MEDS: INSULIN GLARGINE (*BKC) 100 UNITS/ML 50 UNITS SUB-Q (09:11)
[2023-02-14] MEDS: FUROSEMIDE INJ 40 MG/4 ML VIAL IV PUSH (09:12)
--- NOTE | 2023-02-14 11:16 | PM.DS ---
DS: Admitting Diagnosis Discharge Date 02/14/23 Admitting Diagnosis Shortness of breath DS: Discharge Diagnosis Discharge Diagnosis (1) Acute on chronic congestive heart failure: Code(s): I50.9 - Heart failure, unspecified Status: Acute (2) Aortic stenosis: Code(s): I35.0 - Nonrheumatic aortic (valve) stenosis Status: Acute (3) Premature ventricular complex: Code(s): I49.3 - Ventricular premature depolarization Status: Acute (4) Coronary artery disease involving [place] coronary artery of [place] heart: Code(s): I25.10 - Atherosclerotic heart disease of [place] coronary artery without angina pectoris Status: Acute (5) Insulin dependent type 2 diabetes mellitus: Code(s): E11.9 - Type 2 diabetes mellitus without complications; Z79.4 - cmm technician (current) use of insulin Status: Acute (6) Hypertension: Qualifiers: Hypertension type: essential hypertension Qualified Code(s): I10 - Essential (primary) hypertension Code(s): I10 - Essential (primary) hypertension Status: Acute (7) Obstructive sleep apnea: Code(s): G47.33 - Obstructive sleep apnea (adult) (pediatric) Status: Acute DS: Summary Hospital Course Reason for hospitalization: 72yo male with CHF with an EF of 48% in January 2022, CAD status post CABG, dyslipidemia, CKD, hypothyroidism, and insulin-dependent diabetes who presents with shortness of breath.?Please see H&P for details Hospital Course: Patient presents with complaints of shortness of breath.? BNP was 1820.? Chest x-ray showed pulmonary vascular congestion.? Echo shows EF of 55-60% with abnormal diastolic dysfunction.? He had septal wall motion abnormalities.? He had moderate to severe aortic stenosis with an aortic valve area of 0.85cm2.? Patient with acute on chronic diastolic CHF.? His aortic valve disease contributing to his CHF.? Patient felt much better with the IV diuretics. Empagliflozin added. Patient has known . He is being followed by has Media Relations Specialist for this with frequent Echos. Patient was having infrequent PVCs with different morphology.? We continued his metoprolol.? Magnesium was normal.?Patient had a 12 beat run of possibly V-tach but on review, probably artifact. His ectopy did improve. Patient with known CAD but no complaints of chest pain.? EKG showed sinus bradycardia with first-degree AV block, PVCs with right bundle branch block.? We continued metoprolol, Lipitor, Imdur, Plavix and aspirin. His A1c 9.4. The patient's blood glucose was monitored closely with AccuCheks covering with sliding scale.? Hypoglycemia protocol was available as needed.?Patient is compliant with his noninvasive ventilation machine at home.?This was continued here. He has clinical improvement. We opted not to advance his lasix given his valvular disease. he was encouraged to do daily weights. He overall did well and was able to be discharged home on 02/14/2023. Status at Discharge Cognitive/behavioral status at discharge: stable Time Spent with Patient Time attestation: Total time spent providing and/or coordinating discharge services: 35 minutes Time spent: Greater than 30 minutes Exam Narrative: AF 97.4 147/71 51 20 96% ra Gen - NARD sitting up in chair Chest - CTA bilaterally CV - RRR, 2/6 murmur USB. Tele showing occasional PVCs Abd - Soft, obese, NT Ext - trace pedal edema Psych - Nml mood and affect Skin - Warm and dry DS: Data Data Completed and Pending Labs on day of discharge: Labs from last 24 hours 02/14/23 02/14/23 02/14/23 07:21 05:30 05:07 Sodium 138 Potassium 3.5 Chloride 98 Carbon Dioxide 32 H Anion Gap 8 BUN 25 H Creatinine 1.20 Estim Creat Clear Calc 67 Estimated GFR 60 Glucose 111 H POC Capillary Glucose 139 H 97 Calcium 8.4 Phosphorus 3.9 Magnesium 2.5 H Albumin 3.8 02/13/23 02/13/23 02/13/23 19:49 16:37 1
[2023-02-14 11:23] LABS: Glucose Point of Care 232 mg/dl (65-105)
== END 2023-02-14 12:25 | disposition home or self-care (01) | DRG 291 ==
LOC: ANHED 14:01 → ANH3MEDSUR 15:06
PROVIDERS: Emergency Medicine; Physician Assistant; Admitting Provider Chiropractor; Emergency Provider Physician Assistant; PCP Family Medicine; Visit Provider Internal Medicine
DX: I13.0 Hypertensive heart and chronic kidney disease with heart failure and stage 1 through stage 4 chronic kidney disease, or unspecified chronic kidney disease (principal); I50.33 Acute on chronic diastolic (congestive) heart failure; E78.5 Hyperlipidemia, unspecified; E03.9 Hypothyroidism, unspecified; E11.22 Type 2 diabetes mellitus with diabetic chronic kidney disease; E11.42 Type 2 diabetes mellitus with diabetic polyneuropathy; G47.33 Obstructive sleep apnea (adult) (pediatric); I49.3 Ventricular premature depolarization; I25.10 Atherosclerotic heart disease of native coronary artery without angina pectoris; I35.0 Nonrheumatic aortic (valve) stenosis; N18.30 Chronic kidney disease, stage 3 unspecified; N40.0 Benign prostatic hyperplasia without lower urinary tract symptoms; Z98.41 Cataract extraction status, right eye; Z98.42 Cataract extraction status, left eye; Z95.5 Presence of coronary angioplasty implant and graft; Z79.82 Long term (current) use of aspirin; Z79.4 Long term (current) use of insulin; Z79.02 Long term (current) use of antithrombotics/antiplatelets; Z79.84 Long term (current) use of oral hypoglycemic drugs; Z88.0 Allergy status to penicillin; Z66 Do not resuscitate; Z86.73 Personal history of transient ischemic attack (TIA), and cerebral infarction without residual deficits; Z95.1 Presence of aortocoronary bypass graft; Z99.89 Dependence on other enabling machines and devices
CPT/HCPCS: 36415; 71046; 80048; 80053; 80069; 82948; 83036; 83735; 83880; 84443; 85025; 85027; 85055; 93005; 93970; 96374; 96375; 96376; 99285; A9270; C8929; G0378; J1815; J1940; Q9957

== ENCOUNTER 2023-07-27 15:26 | Emergency (ER) | payer MEDICARE, SELFPAY ==
[2023-07-27 15:44] VITALS: BP 114/54; PULSE 60; RESP 16; TEMP 36.6; O2SAT 99
--- NOTE | 2023-07-27 16:10 | ED.NAVMDI ---
HPI - Nausea/Vomiting/Diarrhea General Chief complaint: Nausea/Vomiting/Diarrhea Stated complaint: diarrhea, Covid exposure Time Seen by Provider: 07/27/23 16:35 Source: patient and RN notes reviewed Mode of arrival: ambulatory Limitations: no limitations History of Present Illness HPI Narrative: 73-year-old male presents concern for diarrhea. Reports 3 episodes of diarrhea over the last couple of days. Reports he had a co-worker with COVID in his boss wanted him to be tested. Reports he has been on a weight loss medicine that causes diarrhea. He denies any abdominal pain, fever, chills, sweats. Denies nausea and vomiting MD elicited complaint: diarrhea Related Data Home Medications Medication Instructions Recorded Confirmed levothyroxine 50 mcg tablet 50 mcg PO DAILY 08/25/19 07/27/23 insulin aspart U-100 100 unit/mL See Rx Instructions .Route .COMPLEX 11/11/19 07/27/23 subcutaneous solution (Novolog U-100 Insulin aspart) aspirin 81 mg capsule 81 mg PO DAILY 04/25/21 07/27/23 cholecalciferol (vitamin D3) 125 125 mcg PO DAILY 04/25/21 07/27/23 mcg (5,000 unit) tablet (Vitamin D3) garlic 1,000 mg capsule 1,000 mg PO DAILY 04/25/21 07/27/23 amlodipine 5 mg tablet 5 mg PO DAILY 02/11/23 07/27/23 gabapentin 300 mg capsule 300 mg PO Q12H 02/11/23 07/27/23 glimepiride 2 mg tablet 2 mg PO USEASDIRECTD 02/11/23 07/27/23 insulin degludec 200 unit/mL (3 50 unit subcut DAILY 02/11/23 07/27/23 mL) subcutaneous pen (Tresiba FlexTouch U-200 insulin) isosorbide mononitrate 30 mg 30 mg PO DAILY 02/11/23 07/27/23 tablet,extended release 24 hr furosemide 40 mg tablet (Lasix) 80 mg PO BID 04/26/23 07/27/23 metronidazole 0.75 % topical cream 1 applic topical HS 07/27/23 07/27/23 spironolactone 25 mg tablet 25 mg PO DAILY 07/27/23 07/27/23 Allergies Allergy/AdvReac Type Severity Reaction Status Date / Time Penicillins Allergy Unknown Rash Verified 12/16/23 16:07 BIRD FEATHERS Allergy Mild COUGHING Uncoded 07/27/23 16:07 Review of Systems Review of Systems: CONSTITUTIONAL: Denies malaise, chills, sweats, or fever. ENT: Denies rhinorrhea, congestion, sinus pain, otalgia or sore throat. CARDIOVASCULAR: Denies chest pain, palpitations, or edema. RESPIRATORY: Denies cough or dyspnea. GASTROINTESTINAL: Denies abdominal pain, nausea, vomiting. Reports diarrhea GENITOURINARY: Denies dysuria or hematuria. MUSCULOSKELETAL: Denies myalgia. NEUROLOGIC: Denies headache. All systems reviewed & are unremarkable except as noted in HPI and below PMFSH Past Medical History Medical History Aortic stenosis Benign prostatic hyperplasia Cerebrovascular accident (2005) No residual deficits. Chronic kidney disease, stage III (moderate) Coronary artery disease involving [place] coronary artery of [place] heart Status post CABG in 2008 (FREDIS-LAD, jump radial to D1 to CX/OM, SVG-RPL), PCI in 2019 (drug-eluting stent to OM1 and proximal RCA). Diabetic peripheral neuropathy Dyslipidemia Heart failure with reduced ejection fraction Mid range EF of 48% in January 2022. Hypertension Hypothyroidism Insulin dependent type 2 diabetes mellitus Obstructive sleep apnea Surgical History Surgical History History of bilateral cataract extraction History of carpal tunnel release History of coronary artery stent placement (07/14/19) Drug-eluting stent to OM1 and proximal RCA. History of extraction of renal calculus History of four vessel coronary artery bypass graft (2008) FREDIS-LAD, jump radial to D1 to CX/OM, SVG-RPL. History of left atrial appendage closure Status post surgical removal of malignant neoplasm of skin Family History Family History Father Family history of anemia Family history of diabetes mellitus in first degree relative Mother Family history of anemia Family
== END 2023-07-27 16:55 | disposition home or self-care (01) ==
PROVIDERS: Emergency Provider Nurse Practitioner; PCP Family Medicine
DX: R19.7 Diarrhea, unspecified (principal); Z20.822 Contact with and (suspected) exposure to COVID-19; I35.0 Nonrheumatic aortic (valve) stenosis; N40.0 Benign prostatic hyperplasia without lower urinary tract symptoms; Z86.73 Personal history of transient ischemic attack (TIA), and cerebral infarction without residual deficits; I25.10 Atherosclerotic heart disease of native coronary artery without angina pectoris; E11.42 Type 2 diabetes mellitus with diabetic polyneuropathy; I13.0 Hypertensive heart and chronic kidney disease with heart failure and stage 1 through stage 4 chronic kidney disease, or unspecified chronic kidney disease; E11.22 Type 2 diabetes mellitus with diabetic chronic kidney disease; N18.30 Chronic kidney disease, stage 3 unspecified; I50.9 Heart failure, unspecified; Z79.4 Long term (current) use of insulin; Z79.84 Long term (current) use of oral hypoglycemic drugs; E78.5 Hyperlipidemia, unspecified; E03.9 Hypothyroidism, unspecified; Z98.42 Cataract extraction status, left eye; Z98.41 Cataract extraction status, right eye; Z95.5 Presence of coronary angioplasty implant and graft; Z85.828 Personal history of other malignant neoplasm of skin; Z79.82 Long term (current) use of aspirin
CPT/HCPCS: 87426; 87804; 99213; C9803; G0463

== ENCOUNTER 2023-08-21 11:15 | Outpatient (CLI) | payer MEDICARE, SELFPAY ==
--- NOTE | ~2023-08-21 | XR_ITS ---
XR hip LT 2V w AP pelvis DATE: 08/21/2023 11:40 INDICATION: Posterior left hip pain, thigh pain following a fall 2 weeks ago TECHNIQUE: AP pelvis. AP and lateral views of left hip COMPARISON: December 09, 2012 left hip FINDINGS: Normal alignment at the pubic symphysis and sacroiliac joints. No pelvic fracture or bone d estruction. Mild left hip osteoarthritis. No fracture, dislocation, avascular necrosis or bone destruction of the left hip. IMPRESSION: Mild left hip osteoarthritis Reviewed, dictated and finalized at location B. OW REFINER
--- NOTE | ~2023-08-21 | XR_ITS ---
XR femur LT min 2V DATE: 08/21/2023 11:40 INDICATION: Posterior left hip and thigh pain following a fall 2 weeks ago TECHNIQUE: AP and lateral views of left femur COMPARISON: None FINDINGS: Mild left hip osteoarthritis. No fracture or dislocation, periosteal reaction or bone destr uction of the left femur. Periarticular spurring at the patellofemoral joint. There is extensive calcification of the femoral and popliteal arteries. Surgical clips are noted dayami g the posteromedial aspect of the left knee. IMPRESSION: Mild left hip osteoarthritis Reviewed, dictated and finalized at location B. OR RECRUITER
== END 2023-08-21 11:16 | disposition home or self-care (01) ==
LOC: ANHIMG 11:18
PROVIDERS: PCP Family Medicine; Visit Provider Physician Assistant
DX: M16.12 Unilateral primary osteoarthritis, left hip (principal); W19.XXXA Unspecified fall, initial encounter
CPT/HCPCS: 73502; 73552

== ENCOUNTER 2024-04-21 11:17 | Emergency (ER) | payer MEDICARE, SELFPAY ==
--- NOTE | ~2024-04-21 | XR_ITS ---
EXAMINATION: XR chest 2V DATE: 04/21/2024 12:08 INDICATION: Chest pain. Shortness of breath. Dizziness. TECHNIQUE: Frontal and lateral views of the chest were obtained. COMPARISON: Chest 2 views 02/11/2023 FINDINGS: There is no pneumonia, pleural effusion, or pneumothorax. The heart size is normal. Median sternotomy wires and mediastinal surgical clips are seen, likely from prior coronary artery bypass gr afting. There is a closure device at left atrial appendage. IMPRESSION: 1. No acute cardiopulmonary disease. Reviewed, dictated and finalized at location A.
--- NOTE | 2024-04-21 11:18 | ECG_ITS ---
Test Date: 2024-04-21 11:24:52 Measurements Intervals [place] Rate: 54 P: 48 NH: 268 QRS: 17 QRSD: 158 T: 6 QT: 455 QTc: 435 Interpretive Statements SLOW SINUS BRADYCARDIA WITH FIRST DEGREE AV BLOCK RIGHT BUNDLE BRANCH BLOCK CONSIDER INFERIOR INFARCT, AGE INDETERMINATE BASELINE ARTIFACT- I, II, III, AVR, AVL, V6 ABNORMAL ECG NO PRIOR ECG FOR COMPARISON Electronically Signed On 04-21-2024 11:27:27 CDT by Nolan Sapp D.O.
[2024-04-21 11:34] LABS: Glucose Point of Care 121 mg/dl (65-105)
[2024-04-21 11:36] VITALS: BP 124/57; PULSE 57; RESP 13; TEMP 36.4; O2SAT 93
[2024-04-21] MEDS: ASPIRIN 81 MG CHEWABLE TABLET 324 MG PO (11:39)
[2024-04-21 11:41] VITALS: O2SAT 96
[2024-04-21 12:01] LABS: Basophils Absolute Auto 0.1 K/mm3 (0.0-0.1); Basophils Percent Auto 0.8 % (0.2-1.2); Eosinophils Absolute Auto 0.3 K/mm3 (0-0.3); Eosinophils Percent Auto 4.7 % (0-4.4); Hematocrit 42.8 % (42.0-52.0); Hemoglobin 13.7 g/dL (14.0-18.0); Immature Granulocyte Absolute 0.01 K/mm3 (0.00-0.031); Immature Granulocyte Percent A 0.2 % (0-0.5); Immature Platelet Fraction Pct 4.9 % (0.9-11.2); Lymphocytes Absolute Auto 1.73 K/mm3 (0.9-3.2); Lymphocytes Percent Auto 29.3 % (18.3-44.2); Mean Corpuscular Volume 87.3 fl (80-100); Monocytes Absolute Auto 0.5 K/mm3 (0.1-0.6); Monocytes Percent Auto 8.1 % (2.6-8.5); Neutrophils Absolute Auto 3.4 K/mm3 (1.3-6.7); Neutrophils Percent Auto 56.9 % (45.5-73.1); Platelet Count Result 127 k/mm3 (150-375); Red Cell Distribution Width 13.8 % (11.5-14.5); White Blood Count 5.9 K/mm3 (4.5-10.0)
[2024-04-21 12:11] LABS: INR 1.1; Prothrombin Time 14.4 Seconds (11.1-14.7)
[2024-04-21 12:12] LABS: Partial Thromboplastin Time 29.7 Seconds (22.3-36.8)
[2024-04-21 12:15] LABS: Alanine Aminotransferase 23 U/L (6-50); Alkaline Phosphatase 95 U/L (38-126); Anion Gap 8 mmol/L (4-12); Aspartate Amino Transferase 25 U/L (17-59); Bilirubin,Total 0.6 mg/dL (0.2-1.3); Blood Urea Nitrogen 30 mg/dL (9-20); Calcium 8.7 mg/dL (8.4-10.2); Carbon Dioxide 28 mmol/L (22-30); Chloride 100 mmol/L (98-107); Estimated CRCL calculation 47 ml/min; Estimated Glomerular Filt Rate 43; Glucose 128 mg/dL (65-110); Lipase 80 U/L (23-300); Sodium 136 mmol/L (137-145)
[2024-04-21 12:16] LABS: Magnesium 2.4 mg/dL (1.6-2.3)
[2024-04-21 12:26] LABS: Troponin I 0.018 ng/mL (0.000-0.034)
[2024-04-21 14:23] VITALS: BP 129/61; PULSE 63; RESP 13; O2SAT 98
--- NOTE | 2024-04-21 14:25 | ECG_ITS ---
Test Date: 2024-04-21 14:45:56 Measurements Intervals [place] Rate: 46 P: 61 RI: 274 QRS: 12 QRSD: 166 T: -25 QT: 466 QTc: 410 Interpretive Statements SLOW SINUS BRADYCARDIA WITH FIRST DEGREE AV BLOCK VENTRICULAR TRIGEMINY RIGHT BUNDLE BRANCH BLOCK INFERIOR INFARCT, AGE INDETERMINATE ABNORMAL ECG Compared to ECG 04/21/2024 11:24:52 NO SIGNIFICANT CHANGE Electronically Signed On 04-21-2024 14:54:05 CDT by Nolan Sapp D.O.
[2024-04-21 14:50] LABS: Troponin I 0.021 ng/mL (0.000-0.034)
--- NOTE | 2024-04-21 15:35 | ED.GENADULT ---
HPI - General Adult General Chief complaint: Chest Pain Stated complaint: sent from PCP for chest pain Time Seen by Provider: 04/21/24 14:59 History of Present Illness HPI narrative: Patient is a 70-year-old gentleman presents emergency department with chief complaint of chest pain shortness of breath. Patient reports he was in the office and told them that he been feeling dizzy at times and may have had some discomfort in his chest the patient states this is not feel like when he had his heart attack patient reports that he always has a slow heart rate but has lost some weight and feels as though his heart rate may be a little slower than normal the patient actually talk to his system analyst while sitting in the emergency department who told the cut his metoprolol dose in half. The patient states currently he is asymptomatic and would like to go home Related Data Home Medications Medication Instructions Recorded Confirmed levothyroxine 50 mcg tablet 50 mcg PO DAILY 08/25/19 04/21/24 insulin aspart U-100 100 unit/mL See Rx Instructions .Route .COMPLEX 11/11/19 04/21/24 subcutaneous solution (Novolog U-100 Insulin aspart) aspirin 81 mg capsule 81 mg PO DAILY 04/25/21 04/21/24 cholecalciferol (vitamin D3) 125 125 mcg PO DAILY 04/25/21 04/21/24 mcg (5,000 unit) tablet (Vitamin D3) garlic 1,000 mg capsule 1,000 mg PO DAILY 04/25/21 04/21/24 gabapentin 300 mg capsule 300 mg PO Q12H 02/11/23 04/21/24 insulin degludec 200 unit/mL (3 50 unit subcut DAILY 02/11/23 04/21/24 mL) subcutaneous pen (Tresiba FlexTouch U-200 insulin) isosorbide mononitrate 30 mg 30 mg PO DAILY 02/11/23 04/21/24 tablet,extended release 24 hr Allergies Allergy/AdvReac Type Severity Reaction Status Date / Time feathers Allergy Unknown Sneezing Verified 04/21/24 11:39 Penicillins Allergy Unknown Rash Verified 04/21/24 11:39 Review of Systems Review of Systems: A 10 system review of systems was completed on the patient and is negative except for what is stated in the HPI. Nursing and ancillary documentation was reviewed. [facility] Past Medical History Medical History Aortic stenosis Benign prostatic hyperplasia Cerebrovascular accident (2005) No residual deficits. Chronic kidney disease, stage III (moderate) Coronary artery disease involving [place] coronary artery of [place] heart Status post CABG in 2008 (FREDIS-LAD, jump radial to D1 to CX/OM, SVG-RPL), PCI in 2019 (drug-eluting stent to OM1 and proximal RCA). Diabetic peripheral neuropathy Dyslipidemia Heart failure with reduced ejection fraction Mid range EF of 48% in January 2022. Hypertension Hypothyroidism Insulin dependent type 2 diabetes mellitus Obstructive sleep apnea Surgical History Surgical History History of bilateral cataract extraction History of carpal tunnel release History of coronary artery stent placement (07/14/19) Drug-eluting stent to OM1 and proximal RCA. History of extraction of renal calculus History of four vessel coronary artery bypass graft (2008) FREDIS-LAD, jump radial to D1 to CX/OM, SVG-RPL. History of left atrial appendage closure Status post surgical removal of malignant neoplasm of skin Family History Family History Father Family history of anemia Family history of diabetes mellitus in first degree relative Mother Family history of anemia Family history of alcoholism Cerebrovascular accident Family history of coronary artery disease Family history of heart disease in male family member before age 55 Sibling Hypertension Other Family history of cataracts Family history of congestive heart failure Family history of hearing loss Social History Social History Social History: Surrogate
[2024-04-21 15:57] VITALS: BP 110/64; PULSE 59; RESP 15; TEMP 36.4; O2SAT 96
== END 2024-04-21 15:59 | disposition home or self-care (01) ==
PROVIDERS: Student in an Organized Health Care Education/Training Program; Emergency Provider Emergency Medicine; PCP Family Medicine
DX: R00.1 Bradycardia, unspecified (principal); R53.1 Weakness; E11.22 Type 2 diabetes mellitus with diabetic chronic kidney disease; I13.0 Hypertensive heart and chronic kidney disease with heart failure and stage 1 through stage 4 chronic kidney disease, or unspecified chronic kidney disease; I50.9 Heart failure, unspecified; N18.30 Chronic kidney disease, stage 3 unspecified; E11.42 Type 2 diabetes mellitus with diabetic polyneuropathy; E78.5 Hyperlipidemia, unspecified; E03.9 Hypothyroidism, unspecified; I35.0 Nonrheumatic aortic (valve) stenosis; G47.33 Obstructive sleep apnea (adult) (pediatric); N40.0 Benign prostatic hyperplasia without lower urinary tract symptoms; Z66 Do not resuscitate; Z98.42 Cataract extraction status, left eye; Z98.41 Cataract extraction status, right eye; Z95.5 Presence of coronary angioplasty implant and graft; Z95.1 Presence of aortocoronary bypass graft; Z86.73 Personal history of transient ischemic attack (TIA), and cerebral infarction without residual deficits; Z85.828 Personal history of other malignant neoplasm of skin; Z79.4 Long term (current) use of insulin; Z79.899 Other long term (current) drug therapy; Z79.82 Long term (current) use of aspirin; I44.0 Atrioventricular block, first degree; R00.8 Other abnormalities of heart beat; I45.10 Unspecified right bundle-branch block; R94.31 Abnormal electrocardiogram [ECG] [EKG]
CPT/HCPCS: 36415; 71046; 80053; 82948; 83690; 83735; 84484; 85025; 85055; 85610; 85730; 93005; 99284; A9270

== ENCOUNTER 2024-06-01 14:23 | Outpatient (CLI) | payer MEDICARE, SELFPAY ==
--- NOTE | ~2024-06-01 | XR_ITS ---
XR ankle RT min 3V Ordering provider: Eduardo Barney PA-C History: . M25.571 - Pain in right ankle and joints of right foot . Comparison: None. FINDINGS: BONES: No acute fracture or dislocation. Calcaneal spur. JOINT SPACES: Osteophyte formation seen in the area of the medial malleolus with narrowing of the spa ce between the talus and medial malleolus which may indicate osteoarthritic changes. SOFT TISSUES: Vascular calcifications. Ossification of the insertion of the tendo Achilles. IMPRESSION: No acute osseous abnormality of the right ankle. Mild osteoarthritic changes. Reviewed, dictated and finalized at location A.
== END 2024-06-01 14:24 | disposition home or self-care (01) ==
LOC: MICIMG 14:26
PROVIDERS: PCP Family Medicine; Visit Provider Physician Assistant
DX: M19.071 Primary osteoarthritis, right ankle and foot (principal)
CPT/HCPCS: 73610

== ENCOUNTER 2025-08-09 15:33 | Emergency (ER) | payer MEDICARE, SELFPAY ==
--- OUTSIDE RECORDS SUMMARY | 2024-10-08 06:45 | XMS_ITS ---
Author Organization [facility] Address [address] [facility] [address] [facility] [address] [place] [address] Care Team Providers Care Bar Helper Name Role Phone Otf Monzon Unavailable [phone] REASON FOR VISIT 1 month f/u Encounters Encounter Location Date Provider Diagnosis [facility] [address] [facility] [address] [facility] [address] [place] [address] 10/08/2024 Otf Monzon Plan Of Treatment No Information Progress Notes * Ulises HEBERTinDOB:1950 ( 75 yo M)Acc No.[id number]:10/08/2024 Progress Notes Patient: Ranjeet GIBSON Provider: Randy Monzon MD :1950 A ge:74 Y S ex:Male Date:10/08/2024 Address:[address] [place], [place] [id number] Subjective: * Chief Complaints: * 1 . 1 month f/u. * Medical History: Objective: * Vitals: Assessment: Plan: * Treatment: * Billing Information: * Visit Code: * Procedure Codes: * Electronic signature of lOena Monzon MD on 08/09/2025 at 05:06 PM SALT REFINER Sign off status: Pending * Provider: Randy Monzon MD Date: 0 10/08/2024 Generated for Printi ng/Faxing/eTransmitting on: 1 05:06 PM SALT REFINER
--- OUTSIDE RECORDS SUMMARY | 2024-11-17 05:30 | XMS_ITS ---
Author Organization [facility] Address [address] [facility] [address] [place] [address] Care Team Providers Care Foster Care Social Worker Name Role Phone Ellen Monzon Unavailable [phone] Encounters Encounter Location Date Provider Diagnosis [facility] [address] [facility] [address] [place] [address] 11/17/2024 Ellen Monzon Plan Of Treatment No Information Progress Notes * EMILEEUlisesinDOB:1950 ( 75 yo M)Acc No.[id number]:11/17/2024 Patient: Ranjeet GIBSON Provider: Tra Monzon MD :1950 A ge:74 Y S ex:Male Date:11/17/2024 Address:[address] [place], [place] [id number] Subjective: * Chief Complaints: * * Medical History: Objective: * Vitals: Assessment: Plan: * Treatment: * Billing Information: * Visit Code: * Procedure Codes: * Electronic signature of Yelena Monzon MD on 08/09/2025 at 05:07 PM FORENSIC STRUCTURAL ENGINEER Sign off status: Pending * Provider: Tra Monzon MD Date: 0 11/17/2024 Generated for Valencia vásquez/Lizz/eTransmitting on: 1 05:07 PM FORENSIC STRUCTURAL ENGINEER
--- OUTSIDE RECORDS SUMMARY | 2025-02-23 07:45 | XMS_ITS ---
Author Organization [facility] Address [address] [place] [address] [address] [place] [address] Care Team Providers Care Arc Welder Apprentice Name Role Phone Otf Monzon Unavailable [phone] REASON FOR VISIT F/up per FMLA Encounters Encounter Location Date Provider Diagnosis [facility] [address] [place] [address] [address] [place] [address] 02/23/2025 Otf Monzon Plan Of Treatment No Information Progress Notes * Ulises HEBERTinDOB:1950 ( 75 yo M)Acc No.[id number]:02/23/2025 Progress Notes Patient: Ranjeet GIBSON Provider: Randy Monzon MD :1950 A ge:74 Y S ex:Male Date:02/23/2025 Address:[address] [place], [place] [phone] Subjective: * Chief Complaints: * 1 . F/up per FMLA. * Medical History: Objective: * Vitals: Assessment: Plan: * Treatment: * Billing Information: * Visit Code: * Procedure Codes: * Electronic signature of Olena Monzon MD on 08/09/2025 at 05:06 PM SUPERVISOR ADULT EDUCATION Sign off status: Pending * Provider: Randy Monzon MD Date: 0 02/23/2025 Generated for Printi ng/Faxing/eTransmitting on: 1 05:06 PM SUPERVISOR ADULT EDUCATION
--- NOTE | ~2025-08-09 | CT_ITS ---
EXAMINATION: CT abdomen pelvis wo con DATE: 08/09/2025 18:03 INDICATION: Left lower quadrant abdominal pain and left flank pain TECHNIQUE: Computed tomography (CT) of the abdomen and pelvis was performed without intravenous contrast. Automated exposure control and iterative reconstruction technique were employed. The dose-length product was 1512.99 mGy-cm. COMPARISON: 03/23/2022 FINDINGS: Mild atelectasis at the bilateral lung bases. Cardiomegaly. Atherosclerotic coronary artery calcifications. Aortic valve repair. Dual-lead cardiac pacemaker with lead tips at the right atrium and near the apex of the right ventricle. No pericardial effusion. Couple small calcified gallstones in the partially decompressed gallbladder. Spleen, pancreas, bilateral adrenal glands and kidneys are normal. Bowels including the appendix are normal. Thin rim of soft tissue density at the periphery of a 3.9 cm ovoid region of fat in the left lower quadrant consistent with age-indeterminate epiploic appendagitis which is new since prior study. Bladder is normal. Small bilateral hydroceles in the scrotum. No free intraperitoneal gas or fluid. No pathologically enlarged abdominal or pelvic lymphadenopathy. Mild lumbar and lower thoracic spondylosis with bridging osteophytes at multiple levels consistent with diffuse idiopathic skeletal hyperostosis (DISH). IMPRESSION: 1. Age-indeterminate epiploic appendagitis which is new since 03/23/2022. No other acute intra-abdominal/pelvic process. 2. Cholelithiasis. 3. Cardiomegaly. Reviewed, dictated and finalized at location A. [facility]PER IMPRESSION: 1. Age-indeterminate epiploic appendagitis which is new since 03/23/2022. No oth er acute intra-abdominal/pelvic process. 2. Cholelithiasis. 3. Cardiomegaly.
[2025-08-09 15:51] VITALS: BP 106/54; PULSE 94; RESP 18; TEMP 36.7; O2SAT 98
--- NOTE | 2025-08-09 16:56 | ED.ABDPAIN ---
HPI - Abdominal Pain General Chief Complaint: Abdominal Pain <Ellen Bailon PA-C - Last Filed: 08/09/25 17:07> Stated Complaint: sent form UC, LLQ abd pain <Ellen Bailon PA-C - Last Filed: 08/09/25 17:07> Time Seen by Provider: 08/09/25 16:57 <RYAN Wayne Last Filed: 08/09/25 17:07> Focused HPI: Patient is a 75 y/o male who presents to the ED with c/o L flank/LLQ pain. Patient reports having pain throughout his L flank region, radiating into his L sided lower abdomen and into his L groin. Reports remote hx of kidney stones, but states pain does not feel similar. Pain worse with ambulation. States he went to an UC today and his urinalysis was negative for blood or infection. Referre here for further evaluation. Denies hx of diverticulitis. Denies dysuria, hematuria, testicular pain, N/V, fevers, rectal bleeding, melena. He is on Ozempic and reports straining himself at times to have a BM. GENERAL: Well-appearing, obese with BMI of 37.3, and in no acute distress. HEAD: Normocephalic, atraumatic. CHEST: Clear to auscultation. ?No respiratory distress. HEART: Regular rate and rhythm.? ABD: Mild TTP in LLQ, no rebound NEURO: ?Alert and oriented x3. Patient screened in triage and initial orders placed.? ?Additional care and disposition to be based upon?diagnostic testing and treatment. <Ellen Bailon PA-C - Last Filed: 08/09/25 17:07> Source: patient <Ellen Bailon PA-C - Last Filed: 08/09/25 17:07> Mode of arrival: ambulatory <Ellen Bailon PA-C - Last Filed: 08/09/25 17:07> Limitations: no limitations <RYAN Wayne Last Filed: 08/09/25 17:07> History of Present Illness HPI narrative: Agree with HPI <Sujit Padilla MD - Last Filed: 08/09/25 19:33> Related Data Home Medications: Home Medications ?Medication ?Instructions ?Recorded ?Confirmed ?Last Taken ?Type insulin aspart U-100 100 unit/mL 1 sliding scale dose subcut 11/11/19 06/14/25 02/10/23 History subcutaneous solution (Novolog DIRECTED U-100 Insulin aspart) aspirin 81 mg capsule 81 mg PO DAILY 04/25/21 06/14/25 02/11/23 History cholecalciferol (vitamin D3) 125 125 mcg PO DAILY 04/25/21 06/14/25 02/11/23 History mcg (5,000 unit) tablet (Vitamin D3) garlic 1,000 mg capsule 1,000 mg PO DAILY 04/25/21 06/14/25 02/11/23 History B.animalis-B.bifidum-B.infantis-B.longum 1 tablet PO QACBREAK 10/23/24 06/14/25 Unknown History 10 mg-15 mg tablet,delay rel acetaminophen 325 mg tablet 650 mg PO Q4H PRN pain 10/23/24 06/14/25 Unknown History docusate sodium 100 mg capsule 100 mg PO BID 10/23/24 06/14/25 Unknown History krill 1,000 mg-omega-3 230 mg-dha 1 cap PO DAILY 10/23/24 06/14/25 Unknown History 60 lv-tus-dqmzbsnww-astaxan capsule semaglutide 0.25 mg or 0.5 mg (2 0.5 mg subcut WEEKLY 10/23/24 06/14/25 Unknown History mg/3 mL) subcutaneous pen injector <Ellen Bailon PA-C - Last Filed: 08/09/25 17:07> Allergies/Adverse Reactions: Allergies Allergy/AdvReac Type Severity Reaction Status Date / Time feathers Allergy Unknown Sneezing Verified 08/09/25 17:32 Penicillins Allergy Unknown Rash Verified 08/09/25 17:32 <Ellen Bailon PA-C - Last Filed: 08/09/25 17:07> Review of Systems Review of Systems: All systems reviewed & are unremarkable except as noted in HPI and below <Sujit Padilla MD - Last Filed: 08/09/25 19:33> Constitutional: Constitutional: Reports no additional constitutional complaints <Sujit Padilla MD - Last Filed: 08/09/25 19:33> ENT: Reports system reviewed and no additional complaints, except as documented <Sujit Padilla MD - Last Filed: 08/09/25 19:33> Cardiovascular: Cardiovascular: Reports no additional cardiovascular complaints <Sujit Padilla MD - Last Filed: 08/09/25 19:33> Respiratory: Respiratory: Reports no additional respiratory complaints <Sujit Padilla MD - Last Filed: 08/09/25 19:33> Gastrointestinal: Gastrointestinal: Reports no additional gastrointestinal complaints <Sujit Padilla MD - Last Filed: 08/09/25 19:33> [facility] Past Medical History Medical History: Medical History (Updated 08/09/25 @ 19:32 by Sujit Padilla MD) Atrioventricular block, first degree Complete heart block Anxiety Chronic kidney disease, stage III (moderate) Benign prostatic hyperplasia Obstructive sleep apnea Heart failure with reduced ejection fraction Mid range EF of 48% in January 2022. Cerebrovascular accident (2005) No residual deficits. Diabetic peripheral neuropathy Aortic stenosis s/p TAVR Insulin dependent type 2 diabetes mellitus Dyslipidemia Hypertension Hypothyroidism Coronary artery disease involving navajo coronary artery of navajo heart Status post CABG in 2008 (FREDIS-LAD, jump radial to D1 to CX/OM, SVG-RPL), PCI in 2019 (drug-eluting stent to OM1 and proximal RCA). <Ellen Bailon PA-C - Last Filed: 08/09/25 17:07> Surgical History Surgical History: Surgical History (Updated 02/10/25 @ 08:18 by Eduardo Barney PA-C) S/P CABG (coronary artery bypass graft) History of transcatheter aortic valve replacement (TAVR) Status post surgical removal of malignant neoplasm of skin History of bilateral cataract extraction History of carpal tunnel release History of left atrial appendage closure History of coronary artery stent placement (07/14/19) Drug-eluting stent to OM1 and proximal RCA. History of four vessel coronary artery bypass graft (2008) FREDIS-LAD, jump radial to D1 to CX/OM, SVG-RPL. History of extraction of renal calculus <Ellen Bailon PA-C - Last Filed: 08/09/25 17:07> Family History Family History: Family History Father Family history of anemia Family history of diabetes mellitus in first degree relative Mother Family history of anemia Family history of alcoholism Cerebrovascular accident Family history of coronary artery disease Family history of heart disease in male family member before age 55 Sibling Hypertension Other Family history of cataracts Family history of congestive heart failure Family history of hearing loss <Ellen Bailon PA-C - Last Filed: 08/09/25 17:07> Social History Social History: Social History Social History: Surrogate medical decision maker: Catie Morejon, spouse. Code status: Do not resuscitate. Smoking status: Never smoker Second hand tobacco smoke exposure: No Alcohol intake: never Substance use: never Substance use type: does not use Lack of Transportation: No Lack of Food: Never True Current Housing: I Have Housing Concerned About Future Housing: No Difficulty Paying Gas/Electric Bills: No Difficulty Paying for Meds: No Currently Unemployed: No Education: Bachelor's Degree Difficulty w/ Childcare or Family Care: No Living arrangements: with family Additional living arrangements comments: Lives with in [place]. Four children. Occupation/Education: occupation Additional occupation/education comments: Still works part-time. Spiritual care concerns: No <Ellen Bailon PA-C - Last Filed: 08/09/25 17:07> Exam Narrative: GENERAL: Well-appearing, well-nourished, and in no acute distress. HEAD: Normocephalic, atraumatic. ENT: Mucous membranes moist. CHEST: Clear to auscultation. No respiratory distress. HEART: Regular rate and rhythm. Normal peripheral pulses. ABDOMEN: Soft, nontender, nondistended. EXTREMITIES: Normal range of motion. No edema. SKIN: Warm, dry, no rash. NEURO: Alert and oriented x3. PSYCH: Normal mood and affect. <Sujit Padilla MD - Last Filed: 08/09/25 19:33> Course Course Emergency Course: Patient informed of results. Discussed and educated about epiploic appendagitis. Appropriate for discharge home. Patient's creatinine is slightly elevated recommended hydration at home and he verbalized understanding. Discharge. <Sujit Padilla MD - Last Filed: 08/09/25 19:33> Vital Signs Vital signs: Vital Signs Temperature 98.1 F 08/09/25 15:51 Pulse Rate 94 08/09/25 15:51 Respiratory Rate 18 08/09/25 15:51 Blood Pressure 106/54 L 08/09/25 15:51 Pulse Oximetry 98 08/09/25 15:51 Oxygen Delivery Room Air 08/09/25 15:51 Temperature 98.1 F 08/09/25 15:51 Pulse Rate 63 08/09/25 17:07 Respiratory Rate 18 08/09/25 17:07 Blood Pressure 116/58 L 08/09/25 17:07 Pulse Oximetry 98 08/09/25 17:07 Oxygen Delivery Room Air 08/09/25 15:51 <Ellen Bailon PA-C - Last Filed: 08/09/25 17:07> Vital Signs Temperature 98.1 F 08/09/25 15:51 Pulse Rate 94 08/09/25 15:51 Respiratory Rate 18 08/09/25 15:51 Blood Pressure 106/54 L 08/09/25 15:51 Pulse Oximetry 98 08/09/25 15:51 Oxygen Delivery Room Air 08/09/25 15:51 Temperature 98.1 F 08/09/25 15:51 Pulse Rate 63 08/09/25 17:07 Respiratory Rate 18 08/09/25 17:07 Blood Pressure 116/58 L 08/09/25 17:07 Pulse Oximetry 98 08/09/25 17:07 Oxygen Delivery Room Air 08/09/25 15:51 <Sujit Padilla MD - Last Filed: 08/09/25 19:33> MDM MDM Narrative Medical decision making narrative: MSE by RAFY in triage <Ellen Bailon PA-C - Last Filed: 08/09/25 17:07> Differential Diagnosis Differential Diagnosis: Kidney stone, diverticulitis, bowel perforation, muscle strain <Sujit Padilla MD - Last Filed: 08/09/25 19:33> Lab Data Result diagrams: 08/09/25 17:39 08/09/25 17:39 <Ellen Bailon PA-C - Last Filed: 08/09/25 17:07> Labs: Lab Results 08/09/25 08/09/25 Range/Units 17:12 17:39 WBC 7.2 (4.5-10.0) K/mm3 RBC 5.36 (4.6-6.20) M/mm3 Hgb 14.4 D (14.0-18.0) g/dL Hct 45.0 (42.0-52.0) % MCV 84.0 (80-100) fl MCH 26.9 (26-34) pg MCHC 32.0 (32-36) g/dl RDW 14.8 H (11.5-14.5) % Plt Count 106 L (150-375) k/mm3 MPV 10.5 H (7.4-10.4) fl Immature Gran % (Auto) 0.1 (0-0.5) % Neut % (Auto) 60.5 (45.5-73.1) % Lymph % (Auto) 23.7 (18.3-44.2) % [place] % (Auto) 9.1 H (2.6-8.5) % Eos % (Auto) 5.6 H (0-4.4) % Baso % (Auto) 1.0 (0.2-1.2) % Lymph # (Auto) 1.70 (0.9-3.2) K/mm3 [place] # (Auto) 0.7 H (0.1-0.6) K/mm3 Eos # (Auto) 0.4 H (0-0.3) K/mm3 Baso # (Auto) 0.1 (0.0-0.1) K/mm3 Abs Immat Gran (auto) 0.01 (0.00-0.031) K/mm3 Absolute Neuts (auto) 4.4 (1.3-6.7) K/mm3 Absolute Nucleated RBC 0.000 (0.0-0.012) K/mm3 Nucleated RBC % 0.0 (0.0-0.2) % Sodium 139 (137-145) mmol/L Potassium 4.5 (3.4-5.0) mmol/L Chloride 107 (98-107) mmol/L Carbon Dioxide 27 (22-30) mmol/L Anion Gap 5 (4-12) mmol/L BUN 38 H (9-20) mg/dL Creatinine 2.02 H (0.7-1.3) mg/dL Estim Creat Clear Calc 37 ml/min Estimated GFR 32 L (59 - ) Glucose 155 H (65-110) mg/dL Lactic Acid 1.4 (0.7-2.0) mmol/L Calcium 9.4 (8.4-10.2) mg/dL Total Bilirubin 0.7 (0.2-1.3) mg/dL AST 30 (17-59) U/L ALT 24 (6-50) U/L Alkaline Phosphatase 109 (38-126) U/L Total Protein 6.8 (6.3-8.2) g/dL Albumin 4.0 (3.5-5.1) g/dL Lipase 124 (23-300) U/L Urine Color Yellow (Yellow) Urine Appearance Cloudy H (Clear) Urine pH 5.0 (5.0-9.0) Ur Specific [place] 1.009 (1.001-1.035) Urine Protein Negative (Negative) mg/dL Urine Glucose (UA) Negative (Negative) mg/dL Urine Ketones Negative (Negative) mg/dL Ur Blood (Man) Negative (Negative) Urine Nitrate Negative (Negative) Urine Bilirubin Negative (Negative) Urine Urobilinogen 0.2 (<2.0) mg/dL Leukocyte Esterase Rfl Negative (Negative) JANY/UL Urine RBC 0-2 (0-2) /hpf Urine WBC 0-5 (0-3) /hpf Ur Squamous Epith Cells None seen (Few) /hpf Urine Bacteria None seen /hpf Urine Casts 0-2 <Ellen Bailon PA-C - Last Filed: 08/09/25 17:07> Lab Results 08/09/25 08/09/25 Range/Units 17:12 17:39 WBC 7.2 (4.5-10.0) K/mm3 RBC 5.36 (4.6-6.20) M/mm3 Hgb 14.4 D (14.0-18.0) g/dL Hct 45.0 (42.0-52.0) % MCV 84.0 (80-100) fl MCH 26.9 (26-34) pg MCHC 32.0 (32-36) g/dl RDW 14.8 H (11.5-14.5) % Plt Count 106 L (150-375) k/mm3 MPV 10.5 H (7.4-10.4) fl Immature Gran % (Auto) 0.1 (0-0.5) % Neut % (Auto) 60.5 (45.5-73.1) % Lymph % (Auto) 23.7 (18.3-44.2) % [place] % (Auto) 9.1 H (2.6-8.5) % Eos % (Auto) 5.6 H (0-4.4) % Baso % (Auto) 1.0 (0.2-1.2) % Lymph # (Auto) 1.70 (0.9-3.2) K/mm3 [place] # (Auto) 0.7 H (0.1-0.6) K/mm3 Eos # (Auto) 0.4 H (0-0.3) K/mm3 Baso # (Auto) 0.1 (0.0-0.1) K/mm3 Abs Immat Gran (auto) 0.01 (0.00-0.031) K/mm3 Absolute Neuts (auto) 4.4 (1.3-6.7) K/mm3 Absolute Nucleated RBC 0.000 (0.0-0.012) K/mm3 Nucleated RBC % 0.0 (0.0-0.2) % Sodium 139 (137-145) mmol/L Potassium 4.5 (3.4-5.0) mmol/L Chloride 107 (98-107) mmol/L Carbon Dioxide 27 (22-30) mmol/L Anion Gap 5 (4-12) mmol/L BUN 38 H (9-20) mg/dL Creatinine 2.02 H (0.7-1.3) mg/dL Estim Creat Clear Calc 37 ml/min Estimated GFR 32 L (59 - ) Glucose 155 H (65-110) mg/dL Lactic Acid 1.4 (0.7-2.0) mmol/L Calcium 9.4 (8.4-10.2) mg/dL Total Bilirubin 0.7 (0.2-1.3) mg/dL AST 30 (17-59) U/L ALT 24 (6-50) U/L Alkaline Phosphatase 109 (38-126) U/L Total Protein 6.8 (6.3-8.2) g/dL Albumin 4.0 (3.5-5.1) g/dL Lipase 124 (23-300) U/L Urine Color Yellow (Yellow) Urine Appearance Cloudy H (Clear) Urine pH 5.0 (5.0-9.0) Ur Specific [place] 1.009 (1.001-1.035) Urine Protein Negative (Negative) mg/dL Urine Glucose (UA) Negative (Negative) mg/dL Urine Ketones Negative (Negative) mg/dL Ur Blood (Man) Negative (Negative) Urine Nitrate Negative (Negative) Urine Bilirubin Negative (Negative) Urine Urobilinogen 0.2 (<2.0) mg/dL Leukocyte Esterase Rfl Negative (Negative) JANY/UL Urine RBC 0-2 (0-2) /hpf Urine WBC 0-5 (0-3) /hpf Ur Squamous Epith Cells None seen (Few) /hpf Urine Bacteria None seen /hpf Urine Casts 0-2 <Sujit Padilla MD - Last Filed: 08/09/25 19:33> Imaging Data Radiologist's impression: ITS Impressions Abdomen/Pelvis CT 08/09/25 18:09 IMPRESSION: 1. Age-indeterminate epiploic appendagitis which is new since 03/23/2022. No other acute intra-abdominal/pelvic process. 2. Cholelithiasis. 3. Cardiomegaly. <Ellen Bailon PA-C - Last Filed: 08/09/25 17:07> ITS Impressions Abdomen/Pelvis CT 08/09/25 18:09 IMPRESSION: 1. Age-indeterminate epiploic appendagitis which is new since 03/23/2022. No other acute intra-abdominal/pelvic process. 2. Cholelithiasis. 3. Cardiomegaly. <Sujit Padilla MD - Last Filed: 08/09/25 19:33> Discharge Plan Discharge Clinical Impression: Epiploic appendagitis, Dehydration <Ellen Bailon PA-C - Last Filed: 08/09/25 17:07> Patient Disposition: Home <Ellen Bailon PA-C - Last Filed: 08/09/25 17:07> Condition: Stable <Ellen Bailon PA-C - Last Filed: 08/09/25 17:07> Instructions: Epiploic Appendagitis (ED) <Ellen Bailon PA-C - Last Filed: 08/09/25 17:07> Additional Instructions: Return to the emergency department if you develop severe abdominal pain, severe nausea and vomiting to the point where you are unable to keep down fluids, if you develop chest pain or difficulty breathing, blood in your stool, dizziness or fainting, or if you develop any other new or concerning symptoms as these could be signs of more serious medical illness. Try to stay well hydrated. Take Tylenol for pain. <Ellen Balion PA-C - Last Filed: 08/09/25 17:07> Patient Language: Marshallese <Ellen Bailon PA-C - Last Filed: 08/09/25 17:07> Prescriptions: No Action insulin aspart U-100 [Novolog U-100 Insulin aspart] 100 unit/mL solution 1 sliding scale dose subcut DIRECTED garlic 1,000 mg Capsule 1,000 mg PO DAILY cholecalciferol (vitamin D3) [Vitamin D3] 125 mcg (5,000 unit) Tablet 125 mcg PO DAILY aspirin 81 mg Capsule 81 mg PO DAILY lisinopril 40 mg tablet See Rx Instructions .ROUTE .COMPLEX Qty: 90 3RF Dose Instruction: TAKE 1 TABLET EVERY DAY Rx Instructions: TAKE 1 TABLET EVERY DAY nitroglycerin 0.4 mg tablet, sublingual 0.4 mg sublingual Q5M PRN (Reason: chest pain) Qty: 30 1RF Rx Instructions: do not exceed 3 doses per episode sertraline 25 mg tablet 25 mg PO DAILY Qty: 90 1RF acetaminophen 325 mg tablet 650 mg PO Q4H PRN (Reason: pain) B.animalis,bifid,infantis,long 10-15 mg tablet,delayed release (DR/EC) 1 tablet PO QACBREAK docusate sodium 100 mg capsule 100 mg PO BID dwzqe-pf-4-lqq-vhb-tkswfoi-ast 1,000-230-60 mg capsule 1 cap PO DAILY semaglutide 0.25 mg or 0.5 mg (2 mg/3 mL) pen injector 0.5 mg subcut WEEKLY insulin glargine [Lantus Solostar U-100 Insulin] 100 unit/mL (3 mL) insulin pen 38 unit subcut QPM Qty: 15 0RF furosemide [Lasix] 40 mg tablet 40 mg PO BID Qty: 60 0RF atorvastatin 40 mg tablet 80 mg PO DAILY Qty: 180 2RF isosorbide mononitrate 30 mg tablet extended release 24 hr 90 mg PO QAM Qty: 30 0RF spironolactone 25 mg tablet 12.5 mg PO DAILY Qty: 30 0RF potassium chloride [Klor-Con M20] 20 mEq tablet,ER particles/crystals 20 meq PO BID Qty: 60 3RF levothyroxine 50 mcg tablet 50 mcg PO DAILY Qty: 30 0RF gabapentin 300 mg capsule 300 mg PO Q12H Qty: 60 0RF Eliquis 5 mg tablet 5 mg PO BID Qty: 60 0RF Rx Instructions: START TAKING ON OCTOBER 25, 2024. <Ellen Bailon PA-C - Last Filed: 08/09/25 17:07> Follow-up/Referrals: João Brown MD [Primary Care Provider, Family Practice] - 1 Week <Ellen Bailon PA-C - Last Filed: 08/09/25 17:07>
--- OUTSIDE RECORDS SUMMARY | 2025-08-09 17:06 | XMS_ITS | Encounter Summary ---
Author Organization [facility] Address [address] [place] [address] Care Team Providers Care Metal Bending Machine Operator Name Role Phone Unavailable Primary Care Provider Unavailabl e Encounter Details Date Type Department Care Team (Late st Contact Info) Description 01/14/2019 Lab Requisition [facility] [address] [facility] [place] [address] Anayeli Doe MD [address] [facility] [address] [place] [address] Social History Tobacco Use Types Packs/Day Years Used Date Smoking Tobacco: Never Smokeless Tobacco: Never Alcohol Use Standard Drinks/Week Comments No 0 (1 standard drink = 0.6 oz pur e alcohol) Sex and Gender Information Value Date Recorded Sex Assigned at Not on file Legal Sex 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 Gender Identity Not on file Sexual Orientation Not on file documented as of this encounter Plan of Treatment Not on file documented as of this encounter Procedures Procedure Name Priority Date/Time Associated Diagnosis Comments DERMATOPATHOLOGY Routine 01/13/2019 12:0 0 AM CDT documented in this encounter Results * DERMATOPATHOLOGY (01/13/2019 12:00 AM CDT) Case Report Dermatopathology Report Case: [id number] Authorizing Provider: Anayeli Doe MD Collected: 01/13/2019 12:00 AM Pathologist: Te Can MD Received: 01/14/2019 07:43 AM Specimen: Skin, right pre-auricular 9 3:56 PM CDT DERMATOPATHOLOGY LABORATORY Final Diagnosis Specimen A. SKIN, right pre-auricular: BASAL CELL CARCINOMA, NODULAR TYPE (C44.319) 3:56 PM CDT DERMATOPATHOLOGY LABORATORY at 1556 CDT Clinical History BCC, irritated, non-healing. 3:56 PM CDT DERMATOPATHOLOGY LABORATORY Gross Description Specimen A: Received is one formalin filled container labeled with the patient's name and designated right pre-auricular. The specimen consists of a shave measuring [id number]. Jar 0. 3:56 PM CDT DERMATOPATHOLOGY LABORATORY Microscopic Description Specimen A. SKIN, right pre-auricular: Within the dermis there are aggregates of basaloid cells with a high nuclear to cytoplasmic ratio and peripheral palisading. 3:56 PM CDT DERMATOPATHOLOGY LABORATORY Disclaimer An external and internal positive and negative controls are appropriate for the histochemical, immunohistochemical and immunofluorescence stain(s) in this case (if any), except where stated explicitly. The performance characteristics of the stain(s) cited in this report were developed and its performance characteristic determined by the Dermatopathology Laboratory at [facility], directed by Dr. Laverne Can. These tests need not be, and therefore are not, approved by the [place] Food and Drug Administration. The tests are used for clinical purposes. Billing Codes Specimen Charges Stain Charges 71220 1 3:56 PM CDT DERMATOPATHOLOGY LABORATORY Embedded Images 3:56 PM CDT DERMATOPATHOLOGY LABORATORY Pathology/Cytolog y TISSUE SPECIMEN FROM SKIN / Unknown 01/13/2019 01/14/2019 7:43 AM CDT us Anayeli Doe MD LAB - PATHOLOGY/CYTOLOGY OR DERABLES Final Result DERMATOPATHOLOGY LABORATORY [facility] - Department of Dermatology [facility] [facility] [place] [address], [facility] [phone] documented in this encounter Visit Diagnoses Not on filedocumented in this encounter
--- OUTSIDE RECORDS SUMMARY | 2025-08-09 17:06 | XMS_ITS | Encounter Summary ---
Author Organization [facility] Address [address] [place] [address] Care Team Providers Care Snipper Name Role Phone Unavailable Primary Care Provider Unavailabl e Encounter Details Date Type Department Care Team (Late st Contact Info) Description 12/26/2022 Lab Requisition [facility] - [facility]ermPath Lab [address] 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 Gender Identity Not on file Sexual Orientation Not on file documented as of this encounter Plan of Treatment Not on file documented as of this encounter Procedures Procedure Name Priority Date/Time Associated Diagnosis Comments DERMATOPATHOLOGY Routine 12/26/2022 3:08 PM CDT documented in this encounter Results * DERMATOPATHOLOGY (12/26/2022 3:08 PM CDT) Case Report Dermatopathology Report Case: [id number] Authorizing Provider: Krystina Estes, Collected: 12/26/2022 03:08 PM ASPHALT STILL OPERATOR-INCIDENT RESPONSE COORDINATOR Ordering Location: [facility] DermPath Lab Received: 12/28/2022 06:55 AM Pathologist: Pamella Teran MD Specimen: Skin, right cheek 5:47 PM CDT DERMATOPATHOLOGY LABORATORY Final Diagnosis Specimen A. SKIN, right cheek: HYPERPLASTIC (HYPERTROPHIC) ACTINIC KERATOSIS; EXTENDING TO THE BASE OF THE SPECIMEN (L57.0) (see microscopic description and comment) 3 5:47 PM CDT DERMATOPATHOLOGY LABORATORY at 1747 CDT Clinical History AK VS SCC VS OTHER 3 5:47 PM CDT DERMATOPATHOLOGY LABORATORY Gross Description Specimen A: Received is one formalin filled container labeled with the patient's name and designated right cheek. The specimen consists of a shave biopsy measuring 9x8x1 mm. Jar 0. 3 5:47 PM CDT DERMATOPATHOLOGY LABORATORY Microscopic Description Specimen A. SKIN, right cheek: There is hyperkeratosis alternating with parakeratosis. There is epidermal hyperplasia with disorderly maturation of keratinocytes with nuclear pleomorphism confined to the lower half of the epidermis. This process extends to the base of the specimen. COMMENT: A squamous cell carcinoma cannot be ruled out. 3 5:47 PM CDT DERMATOPATHOLOGY LABORATORY Disclaimer An external and internal positive and negative controls are appropriate for the histochemical, immunohistochemical and immunofluorescence stain(s) in this case (if any), except where stated explicitly. The performance characteristics of the stain(s) cited in this report were developed and its performance characteristic determined by the Dermatopathology Laboratory at [facility], directed by Dr. Laverne Can. These tests need not be, and therefore are not, approved by the [place] Food and Drug Administration. The tests are used for clinical purposes. Billing Codes Specimen Charges Stain Charges 51913 1 3 5:47 PM CDT DERMATOPATHOLOGY LABORATORY Embedded Images 3 5:47 PM CDT DERMATOPATHOLOGY LABORATORY Pathology/Cytolo gy TISSUE SPECIMEN FROM SKIN / Unknown 12/26/2022 3:08 PM CDT 12/28/2022 6:55 AM CDT us Krystina Nolanjuliana ASPHALT STILL OPERATOR-INCIDENT RESPONSE COORDINATOR LAB - PATHOLOGY/CY TOLOGY ORDERABLES Final Result DERMATOPATHOLOGY LABORATORY [facility] - Department of Dermatology [address] [phone] documented in this encounter Visit Diagnoses Not on filedocumented in this encounter
--- OUTSIDE RECORDS SUMMARY | 2025-08-09 17:06 | XMS_ITS | Clinical Summary ---
Author Organization [facility] Address [facility] [place] [address] Care Team Providers Care Cane Splicer Name Role Phone João Brown MD Primary Care Provider [phone] Allergies Active Allergy Reactions Criticality Noted Date Comments Penicillins Unknown 09/10/2017 Medications hydrocodone-acet aminophen 5-325 MG tablet Take 1 tablet by mouth every 4 (four) hours as needed for Pain. 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 [employer] Gender Identity Not on file Sexual Orientation Not on file Last Filed Vital Signs Vital Sign Reading Time Taken Comments Blood Pressure 136/80 05/30/2018 9:24 AM CDT Pulse 52 05/30/2018 9:24 AM CDT Temperature 36.5 C (97.7 F) 05/18/2018 3:02 PM CDT Respiratory Rate 18 05/18/2018 4:41 PM CDT Oxygen Saturation 98% 05/18/2018 4:41 PM CDT Inhaled Oxygen Concentration - - Weight 128.4 kg (283 lb) 05/30/2018 9:24 AM CDT Height 177.8 cm (5' 10) 05/18/2018 2:59 PM CDT Body Mass Index 40.61 05/18/2018 2:59 PM CDT Plan of Treatment Health Maintenance Due Date Last Done Comments Colorectal Cancer Screening Colonoscopy (10 Years) 1950 Hepatitis C 1968 Pneumococcal Vaccine: 50+ Ye ars (1 of 1 - PCV) 2000 Zoster Vaccines (1 of 2) 2000 Annual Medicare Wellness Visit 2015 COVID-19 Vaccine (1 - 2024-2 6 season) 2025 Influenza Adult (#1) 2025 05/31/2015 RSV Immunization or 60+ Years (1 - 1-dose 75+ series) 2025 DTaP, Tdap and Td Vaccines ( 2 - Td or Tdap) 09/10/2027 09/10/2017 Hepatitis A Vaccines Aged Out No long er eligible based on patient's age to complete this topic Meningococcal B Vaccine Aged Out No l onger eligible based on patient's age to complete this topic Meningococcal Vaccine Aged Out No kelly jose martin eligible based on patient's age to complete this topic RSV Immunizations Under 20 Months Aged Out No longer eligible based on patient's age to complete this topic Insurance MEDICARE MEDICAL REIMBURSEMENTS OF SHANA RACHEL GODINEZ Care Teams Cane Splicer Relationship Specialty Start Date End Date João Brown MD [address] [place] [address] PCP - General FAMILY PRACTICE 09/10/17
--- OUTSIDE RECORDS SUMMARY | 2025-08-09 17:06 | XMS_ITS | Continuity of Care Document ---
Author Organization [place] [facility], [facility] Ortho Keith Hogan Address [address] [place] [address] Care Team Providers Care Foundation Engineer Name Role Phone DOUGIE PENNY Primary Care Provider DOUGIE PENNY Referring Provider KITTY BROWN Intravenous Therapy Nurse [phone] Assessment Encounter Date Assessment Date Assessment LastModified by Organization Details LastModified Time 07/20/2025 07/20/2025 The patient has ongoing left shoulder pain due to rotator cuff tendonitis. We talked about treatment options today in detail we are very limited in what we can do because of other medical issues with regards to his heart. He wanted to proceed with cortisone therefore under sterile conditions I injected the patient is left shoulder subacromial space in the office with 4 cc of 0.5% bupivacaine and 20 mg of triamcinolone. The patient tolerated the procedure well. I have advised him that he should try some physical therapy however he declined. He was given exercise sheets for home use I have asked him to do these on a regular basis to make sure he is maintaining his strength and flexibility in the left shoulder. I will see him back as needed. He voiced understanding agrees above plan he will call for any further problems difficulties or questions. [email or web address] Not available 07/20/2025 15:06:22 Plan of Treatment Reminders Order Date Submit Date Provider Last Modified By Organization Details Last Modified Time Details Appointments None recorded. Lab None recorded. Referral None recorded. Procedures injection/a spiration joint/bursa (PROC) 2024 025 [email or web address] In-Office Order, Internal Use Only DO Not Attach Compendium DO Not Attach Compendium, Do Not Delete/merge, [id number] 5 14:52:57 Surgeries None recorded. Imaging None recorded. Medication Orders bupivacaine HCl 0.5 % (5 mg/mL) injection solution 2024 025 [email or web address] [facility] [address], [place], [address], 5 15:48:24 triamcinolo ne acetonide 40 mg/mL suspension for injection 2024 025 [email or web address] [facility] [address], [address], [place], [address], 5 15:48:24 Patient TargetsNo targets recorded. Patient InstructionsNo instructions recorded. Reason for Referral None Reported. Problems Name Problem SNOMED Code Status Onset Date Resolution Date Notes Provider Name and Address Organization Details Recorded Time Disorder of shoulder 970668292 Active 2018 Not Available [facility] 3 13:36:01 Full thickness rotator cuff tear 757833499 Active 2018 Not Available [facility] 3 13:36:02 Morbid obesity 961776246 Active 2019 Not Available [facility] 3 13:36:02 Knee pain Active 2020 Not Available [facility] 3 13:36:02 Bilateral osteoarthr itis of knees 6533384235973 07 Active 2021 Not Available [facility] 3 13:36:01 Tendinitis of right rotator cuff 3880218548308 9104 Active 2021 Not Available [facility] 3 13:36:01 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 5923885531531 00 Active 2021 Not Available [facility] 3 13:36:02 Pain of left knee joint 6340686826346 07 Active 2021 BENJAMIN Donahue [address], [facility] [address], [place], [address] , [place] [facility] 5 12:39:13 Pain of right knee joint 2227527640403 00 Active 2021 Not Available [employer] 3 13:36:02 Pain of left shoulder joint 7400039334014 9109 Active 2021 Not Available [facility] 3 13:36:01 Partial thickness rotator cuff tear 726526097 Active 2021 Not Available [facility] 3 13:36:01 Osteoarthr itis 779713518 Active 2021 Not Available [facility] 3 13:36:02 Pain of left knee region 5231170533354 09 Active 2021 Not Available [facility] 3 13:36:02 Rupture of rotator cuff of right shoulder 0915832865274 9103 Active 2022 Not Available [facility] 3 13:36:01 Tendinitis of left rotator cuff 9606799036513 9101 Active 2022 BENJAMIN Donahue [address], [place], [address] , [facility] 5 12:37:55 Partial thickness rotator cuff tear 208595525 Active 2022 BENJAMIN Donahue [address], [address], [place], [address] , [facility] 3 10:59:32 Pain of right shoulder joint 4837125381496 9100 Active 2022 Patria Morales CNA null, [facility] 3 11:38:14 Partial thickness rotator cuff tear 840303427 Active 2022 BENJAMIN Donahue [address], [address], [place], [address] , [facility] 3 11:47:54 Nontraumat ic partial rupture of right rotator cuff 6112492308144 109 Active 2022 BENJAMIN Donahue [address], [address], [place], [address] , [facility] 3 11:07:55 Pain of bilateral knee joints 4692183872592 04 Active 2023 HEATHER Patterson, [facility] [employer] [facility] 4 10:48:54 Problem Notes None recorded. Procedures Surgical History Date Name Laterality Status Provider Name and Address Organization Details Recorded Time 03/18/20 24 Orthovisc Injection completed Jenn Carter NP [address], [address], [place], [address], [facility] [employer] [facility] [employer] [facility] 03/18/2024 11:26:54 02/22/20 23 Ortho - Cortisone Injection completed Hiro Duke MD [address], [address], [place], [address], [employer] [facility] 02/21/2023 11:44:55 02/08/20 23 Ortho - Cortisone Injection completed Hiro Duke MD [address], [address], [place], [address], [employer] [facility] 02/07/2023 13:04:07 implantation of cardiac pacemaker completed [facility] [employer] [facility] [employer] [facility] 03/12/2025 12:00:10 Imaging Results None recorded. Procedure Notes None recorded. Medical Equipment None Reported. Allergies Allergen ID Allergen Name Allergen Category Reaction Reaction Severity Criticality Documentation Date Start Date Code Code System Note Provider Name and Address Organization Details Recorded Time 52153 Product containin g penicilli n (product) medicatio n Not available Not available Not available 10/10/2022 09742 8001 SNOMED Not Available [facility] 3 13:38:17 94163 amlodipin e medicatio n swelling Not available [facility] 06/30/20252024 15155 RxNorm Leg swell ing Not Available [employer] [facility] 5 18:23:00 16983 penicilli n G Not available rash Not available [facility] 06/30/20252016 7980 RxNorm unrec ogniz ed react ion (text : Blist ers, code: [id number]) (from exter nal sourc e) Not Available [employer] - prod 5 18:23:00 Medications Name Sig Start Date Stop Date Status Note LastModified by Organization Details LastModified Time cyclobenzap rine 10 mg tablet 06/10 completed Not Available Not Available Not Available furosemide 40 mg tablet TAKE 2 TABLETS BY MOUTH TWICE DAILY active Not Available Not Available No t Available metolazone 2.5 mg tablet TAKE 1 TABLET BY MOUTH ONCE DAILY 30 MINUTES PRIOR TO MORNING LASIX FOR 2 DAYS 01/08 completed Not Available Not Available Not Available atorvastati n 40 mg tablet active Not Available Not Available Not Available hydralazine 10 mg tablet TAKE 1 TABLET BY MOUTH THREE TIMES DAILY active Not Available Not Available No t Available prednisone 10 mg tablet TAKE 1 TABLET BY MOUTH TWICE DAILY 03/12 completed Not Available Not Available Not Available doxycycline hyclate 100 mg capsule TAKE 1 CAPSULE BY MOUTH TWICE DAILY FOR 10 DAYS 03/12 completed Not Available Not Available Not Available clindamycin HCl 300 mg capsule TAKE 1 CAPSULE BY MOUTH EVERY 6 HOURS FOR 10 DAYS active Not Available Not Available No t Available azithromyci n 250 mg tablet TAKE 2 TABLETS BY MOUTH ON DAY 1, AND THEN TAKE 1 TABLET BY MOUTH ONCE A DAY ON DAY 2 THROUGH DAY 5 08/21 completed Not Available Not Available Not Available metoprolol succinate ER 50 mg tablet,exte nded release 24 hr 03/12 completed Not Available Not Available Not Available FreeStyle Test strips USE 1 STRIP TO CHECK GLUCOSE THREE TIMES DAILY BEFORE MEALS active Not Available Not Available No t Available cephalexin 250 mg capsule TAKE 1 CAPSULE BY MOUTH EVERY 6 HOURS FOR 7 DAYS 03/12 completed Not Available Not Available Not Available hydrocodone 5 mg-acetamin ophen 325 mg tablet 06/10 completed Not Available Not Available Not Available meloxicam 15 mg tablet 08/01 completed Not Available Not Available Not Available lisinopril 20 mg tablet 03/12 completed Not Available Not Available Not Available bupivacaine HCl 0.5 % (5 mg/mL) injection solution Take 20 mg by injection route. 2024 active Not Available Not Available Not Avai lable isosorbide mononitrate ER 30 mg tablet,exte nded release 24 hr TAKE 1 TABLET BY MOUTH ONCE DAILY active Not Available Not Available No t Available clindamycin HCl 150 mg capsule TAKE 1 CAPSULE BY MOUTH THREE TIMES DAILY 03/09 completed Not Available Not Available Not Available hydralazine 25 mg tablet 01/08 completed Not Available Not Available Not Available clopidogrel 75 mg tablet 03/12 completed Not Available Not Available Not Available amlodipine 5 mg tablet 03/12 completed Not Available Not Available Not Available sulfamethox azole 800 mg-trimetho prim 160 mg tablet TAKE 1 TABLET BY MOUTH TWICE DAILY FOR 7 DAYS 08/21 completed Not Available Not Available Not Available spironolact one 25 mg tablet TAKE 1/2 (ONE-HALF ) TABLET BY MOUTH ONCE DAILY active Not Available Not Available No t Available glimepiride 2 mg tablet TAKE 1 TABLET BY MOUTH TWICE DAILY AFTER BREAKFAST AND DINNER 03/12 completed Not Available Not Available Not Available prednisone 10 mg tablets in a dose pack Take 1 tab by mouth, 3 times a day for 3 daysTake 1 tab by mouth 2 times a day for 2 daysTake 1 tab by mouth once a day for 1 day 03/12 completed Not Available Not Available Not Available potassium chloride ER 20 mEq tablet,exte nded release(par t/cryst) TAKE 1 TABLET BY MOUTH TWICE DAILY active Not Available Not Available No t Available dicyclomine 20 mg tablet TAKE 1 TABLET BY MOUTH 4 TIMES DAILY FOR 15 DAYS 03/12 completed Not Available Not Available Not Available Kenalog 10 mg/mL suspension for injection Take 20 mg by injection route. 2024 active [facility]: 0003- 0494- 20 Not Available Not Available Not Available amlodipine 10 mg tablet 08/01 completed Not Available Not Available Not Available benzonatate 100 mg capsule TAKE 1 CAPSULE BY MOUTH THREE TIMES DAILY NEEDED FOR COUGH 08/01 completed Not Available Not Available Not Available doxycycline monohydrate 100 mg capsule TAKE 1 CAPSULE BY MOUTH TWICE DAILY FOR 10 DAYS 03/12 completed Not Available Not Available Not Available triamcinolo ne acetonide 40 mg/mL suspension for injection Take 20 mg by injection route. 2024 active Not Available Not Available Not Avai lable levothyroxi ne 50 mcg tablet active Not Available Not Available Not Available cephalexin 500 mg capsule TAKE FOUR CAPSULES BY MOUTH ONE HOUR BEFORE APPOINTME NT 06/30 completed Not Available Not Available Not Available neomycin-po lymyxin-dex ameth 3.5 mg/mL-10,00 0 unit/mL-0.1 % eye drops 07/26 completed Not Available Not Available Not Available triamcinolo ne acetonide 0.1 % topical ointment APPLY TO LEGS TWICE DAILY NEEDED 08/21 completed Not Available Not Available Not Available metronidazo le 0.75 % topical cream APPLY TO FACE AT BEDTIME 03/12 completed Not Available Not Available Not Available metoprolol tartrate 50 mg tablet 08/21 completed Not Available Not Available Not Available nitroglycer in 0.4 mg sublingual tablet DISSOLVE ONE TABLET UNDER THE TONGUE EVERY 5 MINUTES NEEDED FOR CHEST PAIN. DO NOT EXCEED A TOTAL OF 3 DOSES IN 15 MINUTES active Not Available Not Available No t Available gabapentin 300 mg capsule TAKE 3 CAPSULES BY MOUTH TWICE DAILY 08/21 completed Not Available Not Available Not Available sertraline 25 mg tablet TAKE 1 TABLET BY MOUTH ONCE DAILY active Not Available Not Available No t Available diclofenac sodium 75 mg tablet,rebecca yed release Take 1 tablet twice a day by oral route. 03/12 completed Not Available Not Available Not Available insulin syringe U-100 with needle 1 mL 31 gauge x /16 active Not Available Not Available Not Available hydralazine 50 mg tablet TAKE 1 TABLET BY MOUTH THREE TIMES DAILY active Not Available Not Available No t Available gabapentin 100 mg capsule TAKE 3 CAPSULES BY MOUTH TWICE DAILY active Not Available Not Available No t Available metoprolol succinate ER 25 mg tablet,exte nded release 24 hr 03/12 completed Not Available Not Available Not Available methylpredn isolone 4 mg tablets in a dose pack TAKE BY MOUTH DIRECTED ON INSIDE OF PACKAGE 08/01 completed Not Available Not Available Not Available albuterol sulfate HFA 90 mcg/actuati on aerosol inhaler INHALE 1 TO 2 PUFFS BY MOUTH EVERY 4 HOURS NEEDED FOR SHORTNESS OF BREATH FOR WHEEZING active Not Available Not Available No t Available ketoconazol e 2 % topical cream 03/12 completed Not Available Not Available Not Available lisinopril 40 mg tablet active Not Available Not Available Not Available ondansetron 4 mg disintegrat ing tablet DISSOLVE 2 TABLETS IN MOUTH EVERY 8 HOURS NEEDED FOR 3 DAYS 03/12 completed Not Available Not Available Not Available doxycycline hyclate 100 mg tablet TAKE 1 TABLET BY MOUTH TWICE DAILY 03/12 completed Not Available Not Available Not Available tobramycin 0.3 %-dexametha sone 0.1 % eye drops,suspe nsion INSTILL 1 DROP INTO AFFECTED EYE 4 TIMES DAILY 01/26 completed Not Available Not Available Not Available azithromyci n 500 mg tablet TAKE 1 TABLET BY MOUTH 30-60 MINUTES PRIOR TO DENTAL PROCEDURE 03/09 completed Not Available Not Available Not Available Novolog FlexPen U-100 Insulin aspart 100 unit/mL (3 mL) subcutaneou s active Not Available Not Available Not Available ORTHOVISC 30 mg/2 mL intra-artic ular syringe Inject 2 mL every week by intra-art icular route. 03/12 completed Not Available Not Available Not Available Euflexxa 10 mg/mL (mw 2.4-3.6 million) intra-artic ular syringe Inject 5 mL by intra-art icular route for 35 days. 08/21 completed Not Available Not Available Not Available ranolazine ER 500 mg tablet,exte nded release,12 hr active Not Available Not Available Not Available lidocaine (PF) 10 mg/mL (1 %) injection solution In office injection administe red by the provider 08/01 completed [facility]: 0409- 4276- 17 Not Available Not Available Not Available lidocaine (PF) 5 mg/mL (0.5 %) injection solution Take 30 mg by injection route. 08/21 completed Not Available Not Available Not Available BD Ultra-Fine Short Pen Needle 31 gauge x 5/16 active Not Available Not Available Not Available Prevnar 13 (PF) 0.5 mL intramuscul ar syringe PHARMACIS T ADMINISTE RED IMMUNIZAT ION ADMINISTE RED AT TIME OF DISPENSIN G 07/26 completed Not Available Not Available Not Available ropivacaine (PF) 5 mg/mL (0.5 %) injection solution Take 20 mg by injection route. 01/08 completed [facility] [phone] Not Available Not Available Not Available insulin syringe U-100 with needle 1/2 mL 31 gauge x 15/64 active Not Available Not Available Not Available Monovisc 88 mg/4 mL intra-artic ular syringe Take 8 mL by intraarti cular route. 03/12 completed Not Available Not Available Not Available Jardiance 10 mg tablet 01/08 completed Not Available Not Available Not Available Tresiba FlexTouch U-200 insulin 200 unit/mL (3 mL) subcutaneou s pen active Not Available Not Available Not Available Soliqua 100/33 100 unit-33 mcg/mL subcutaneou s insulin pen 08/01 completed Not Available Not Available Not Available OneTouch Ultra Blue Test Strip USE 1 STRIP TO CHECK GLUCOSE 4 TIMES DAILY 07/26 completed Not Available Not Available Not Available Fluzone High-Dose (PF) 180 mcg/0.5 mL intramuscul ar syringe PHARMACIS T ADMINISTE RED IMMUNIZAT ION ADMINISTE RED AT TIME OF DISPENSIN G 08/01 completed Not Available Not Available Not Available Fluzone High-Dose Quad (PF) 240 mcg/0.7 mL IM syringe PHARMACIS T ADMINISTE RED IMMUNIZAT ION ADMINISTE RED AT TIME OF DISPENSIN G 08/21 completed Not Available Not Available Not Available Ultra-Fine Pen Needle 32 gauge x 1/4 USE TO INJECT INSULIN DAILY WITH MEALS active Not Available Not Available No t Available Vitals Date Recorded Body height Body mass index (BMI) Body weight Provider Name and Address Organization Details Last Updated DateTime 07/20/2025 177.8 cm 35.6 kg/m2 259772.91 g Patria Morales CNA [place] [employer] 07/20/2025 14:49:18 Social History Question Answer Notes LastModified by [employer] Details LastModified Time Tobacco Smoking Status Unknown If Ever Smoked Not Available [employer] 10/10/2022 13:35:20 What Was The Date Of Your Most Recent Tobacco Screening? 07/20/2025 [email or web address] Information not available 07/20/2025 Sex: Unknown Functional Status Question Answer Note LastModified by [employer] Details LastModified Time What is your level of alcohol consumption? None [id number] Information not available 10/10/2022 Mental Status None recorded. Family History Relationship Description Onset Age of this Age Resolved Age Notes LastModified by Organization Details LastModified Time Father Family history of malignant neoplasm [id number] Not available 10/10/2022 13:35:28 Father Diabetes mellitus [id number] Not available 10/10/2022 13:35:28 Maternal Grandmother Hypertensive disorder [id number] Not available 10/10/2022 13:35:28 Maternal Grandmother Family history of stroke [id number] Not available 10/10/2022 13:35:28 Maternal Grandfather Heart disease [id number] Not available 10/10/2022 13:35:28 Medical History Condition Response ARTHRITIS Y CANCER: SPECIFY Y USE OF BLOOD THINNERS Y VASCULAR DISEASE Y HEART DISEASE/HEART PROBLEMS Y DIABETES, TYPE Y HEART ARRHYTHMIA Y HYPERTENSION Y STROKE/TIA Y Past Encounters Encounter ID Performer Location Encounter Start Date Encounter Closed Date Diagnosis/Indication Diagnosis SNOMED-CT Code Diagnosis ICD10 Code Diagnosis IMO Codes Diagnosis Note [id number] Jacob Bridges MD [facility] [address] [place] [address] 07/01/2025 13:48:28 07/01/2025 15:08:35 Bilateral osteoarthritis of knees 4611179024 71941 M17.0 Pain of le ft knee joint 0292373077 42963 M25.562 [id number] Jacob Bridges MD [facility] [address] [place] [address] 07/20/2025 14:40:11 07/20/2025 16:03:48 Pain of left shoulder joint 9144373490 7443961 M25.512 Tendinitis of left rotator cuff 9297733573 2954117 M75.82 [id number] Health Concerns Section Related Observation LastModified by Organization Detai ls LastModified Time None Recorded Concern Status LastModified by Organization Details LastModified Time None Recorded Payers Encounter Date Sequence Insurance Name Policy Number Policy Medina Covered Member ID Medina Member ID Guarantor Name 07/20/2025 1 [place] Ranjeet Morejon [id number] Ranjeet Morejon 07/20/2025 2 [employer] SU[employer]AL - [employer] (MEDICARE SUPPLEMENT) Ranjeet Morejon [id number] Ranjeet Morejon Notes Date Note Type Note Provider Name and Address Organization Details Recorded Time 07/20/2025 text/html The patient returns complaining of left shoulder pain. He has had issues with his left shoulder since he had a pacemaker put in last spring. He states when he woke up he was having a lot of aching in the shoulder this has continued over time. His x-rays previously have not shown any significant degenerative changes other than mild to moderate AC joint arthrosis. Subacromial space is well-maintained glenohumeral joint also appears to be relatively preserved. He denies any weakness no other trauma or injury. Shot of cortisone back in March gave him pretty good relief but it has worn off lately. He has pain with overhead motion trying to do anything heavy or repetitive he also can not sleep on his left shoulder. Unfortunately he can not take NSAIDs because he is on blood thinners he also has a pacemaker so we can not do an MRI scan. He has been offered formal physical therapy he has declined he would like to try another shot of cortisone today. I have advised him we can not do this multiple times as it may start to weaken the tendon however. BENJAMIN Donahue [address] [place] [address], [facility] [address], [place], [address], [place] [facility] 07/20/2025 15:06:44
--- OUTSIDE RECORDS SUMMARY | 2025-08-09 17:06 | XMS_ITS | Clinical Summary ---
Author Organization [facility] [employer] Address [address] [place] [address] Care Team Providers Care Fountain Helper Name Role Phone Unavailable Primary Care Provider Unavailabl e Source Comments [facility],non-owned Affiliates and Associated Physician Practices is amultiple site organization consisting of ambulatory clinics and hospital sitesin [place], [place], [place] and [place]. This disclosure is being madepursuant to the Care Everywhere program and may not contain all information available regarding this patient. Last updated 18.[facility] [employer] Allergies Active Allergy Reactions Criticality Noted Date Comments Penicillins Anaphylaxis High 11/27/2018 Medications * Be aware that medications may not be up to date on this document. Alwaysverify current medications with the patient. lisinopril (PRINIVIL; ZESTRIL) 20 MG tablet Take 20 mg by mouth once daily Active amLODIPine (NORVASC) 10 MG tablet Take 10 mg by mouth once daily Active atorvastatin (LIPITOR) 40 MG tabletIndicatio ns:2 tablets Take 40 mg by mouth at bedtime Reasons: 2 tablets Active ASPIRIN 81 PO Active CLOPIDOGREL BISULFATE PO Take 75 mg by mouth once daily Active furosemide (LASIX) 40 MG tablet Take 40 mg by mouth once daily Active GABAPENTIN PO Take 300 mg by mouth 2 times daily Active ISOSORBIDE MONONITRATE PO Take 90 mg by mouth once daily Active levothyroxine (SYNTHROID) 50 MCG tablet Take 50 mcg by mouth daily before breakfast Active metoprolol succinate XL 24hr (TOPROL XL) 100 MG tablet Take 100 mg by mouth once daily Active potassium chloride ER (KLOR-CON) 20 MEQ tablet Take 20 mEq by mouth once daily Active insulin aspart (NOVOLOG) vial Inject 25 Units subcutaneously 3 times daily before meals Active Insulin Glargine-Lixise natide (SOLIQUA SC) Inject 50 Units subcutaneously once daily Active vitamin D (CHOLECACIFEROL ) 5000 UNITS capsule Take 5,000 Units by mouth once daily Active [place]-3 Fatty Acids (FISH OIL PO) Take 1 capsule by mouth once daily Active GARLIC PO Take 1,000 mg by mouth once daily Active Family History Medical History Relation Name Comments Cancer - Other Father Diabetes - Type 2 Father CAD (Coronary Artery Disease) Maternal Grandfather at age 58 from [place] CAD (Coronary Artery Disease) Maternal Uncle from [place] at age 48 Aneurysm, Brain Mother CAD (Coronary Artery Disease) Mother [place] Cancer - Bladder Paternal Grandfather Cancer - Other Paternal Grandfather Hypertension Paternal Grandmother Relation Name Status Comments Father Maternal Grandfather Maternal Uncle Mother Paternal Grandfather Paternal Grandmother Social History Tobacco Use Types Packs/Day Years Used Date Smoking Tobacco: Never Smokeless Tobacco: Never Alcohol Use Standard Drinks/Week Comments No 0 (1 standard drink = 0.6 oz pur e alcohol) Sex and Gender Information Value Date Recorded Sex Assigned at Not on file 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 Gender Identity Not on file Sexual Orientation Not on file Last Filed Vital Signs Vital Sign Reading Time Taken Comments Blood Pressure 126/64 11/27/2018 11:00 AM CDT Pulse 54 11/27/2018 11:00 AM CDT Temperature 36.5 C (97.7 F) 11/27/2018 11:00 AM CDT Respiratory Rate 16 11/27/2018 11:00 AM CDT Oxygen Saturation 95% 11/27/2018 11:00 AM CDT Inhaled Oxygen Concentration - - Weight 123.4 kg (272 lb) 11/27/2018 11:00 AM CDT Height 177.8 cm (5' 10) 11/27/2018 11:00 AM CDT Body Mass Index 39.03 11/27/2018 11:00 AM CDT Plan of Treatment Health Maintenance Due Date Last Done Comments COLOGUARD (AGES 45-75) - COL ON CA SCREENING 1950 COLON MONITORING 1950 COLONOSCOPY - COLON CA SCREENING 1950 CT COLONOGRAPHY - COLON CA SCREENING 1950 Colorectal Cancer Screening 1950 FIT - COLON CA SCREENING 1950 FLEX SIG - COLON CA SCREENING 1950 MEDICARE AWV 12 MONTHS 1950 HEPATITIS C SCREENING 07/02/1968 DTAP/TDAP/TD VACCINES (1 - Tdap) 1969 PNEUMOCOCCAL VACCINE 50+ (1 of 1 - PCV) 2000 ZOSTER VACCINE (1 of 2) 2000 SCREENING FOR DIABETES 11/27/2018 DEPRESSION SCREENING 08/12/2024 COVID-19 VACCINE (1 - 2024-2 6 season) 2025 INFLUENZA VACCINE (#1) 2025 05/31/2015 Respiratory Syncytial Virus (RSV) Vaccine Pt: or over 60 yrs (1 - 1-dose 75+ series) 2025 HEPATITIS B VACCINE Aged Out No longe r eligible based on patient's age to complete this topic HIB VACCINE Aged Out No longer eligi ble based on patient's age to complete this topic HPV VACCINE Aged Out No longer eligi ble based on patient's age to complete this topic MENINGOCOCCAL (Group B) VACC INE SHARED DECISION-MAKING Aged Out No longer eligibl e based on patient's age to complete this topic MENINGOCOCCAL GROUPS A/C/Y/W VACCINE Aged Out No longer eligible b ased on patient's age to complete this topic Insurance MEDICARE [place] [employer] MEDICARE MEDICARE
--- OUTSIDE RECORDS SUMMARY | 2025-08-09 17:06 | XMS_ITS | Encounter Summary ---
Author Organization [facility] Address [address] [place] [address] Care Team Providers Care State Trooper Name Role Phone Unavailable Primary Care Provider Unavailabl e Encounter Details Date Type Department Care Team (Late st Contact Info) Description 01/27/2020 Lab Requisition [facility] DermPath Lab [address] [place] [address] Arielle Teran DO [address] [facility] [address] [place] [address] Social History Tobacco Use Types Packs/Day Years Used Date Smoking Tobacco: Never Smokeless Tobacco: Never Alcohol Use Standard Drinks/Week Comments No 0 (1 standard drink = 0.6 oz pur e alcohol) Sex and Gender Information Value Date Recorded Sex Assigned at Not on file 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 Gender Identity Not on file Sexual Orientation Not on file documented as of this encounter Plan of Treatment Not on file documented as of this encounter Procedures Procedure Name Priority Date/Time Associated Diagnosis Comments DERMATOPATHOLOGY Routine 01/26/2020 12:0 0 AM CDT documented in this encounter Results * DERMATOPATHOLOGY (01/26/2020 12:00 AM CDT) Case Report Dermatopathology Report Case: [id number] Authorizing Provider: Arielle Teran DO Collected: 01/26/2020 12:00 AM Ordering Location: [facility] Derm[facility] Lab Received: 01/27/2020 08:28 AM Pathologist: Te Can MD Specimen: Skin, left neck 0 11:58 AM CDT DERMATOPATHOLOGY LABORATORY Final Diagnosis Specimen A. SKIN, left neck: SEBORRHEIC KERATOSIS, MACULAR (L82.1) 0 11:58 AM CDT DERMATOPATHOLOGY LABORATORY at 1158 CDT Clinical History Lentigo R/O atypia, irregular border, irregular color 0 11:58 AM CDT DERMATOPATHOLOGY LABORATORY Gross Description Specimen A: Received is one formalin filled container labeled with the patient's name and designated left neck. The specimen consists of a shave biopsy measuring 10x7x1 mm. Jar 0. 0 11:58 AM CDT DERMATOPATHOLOGY LABORATORY Microscopic Description Specimen A. SKIN, left neck: Sections show a relatively broad, flat proliferation of small keratinocytes. The surface is gently papillated, and there is increased basilar pigmentation. 0 11:58 AM CDT DERMATOPATHOLOGY LABORATORY Disclaimer An external and internal positive and negative controls are appropriate for the histochemical, immunohistochemical and immunofluorescence stain(s) in this case (if any), except where stated explicitly. The performance characteristics of the stain(s) cited in this report were developed and its performance characteristic determined by the Dermatopathology Laboratory at [facility], directed by Dr. Laverne Can. These tests need not be, and therefore are not, approved by the [place] Food and Drug Administration. The tests are used for clinical purposes. Billing Codes Specimen Charges Stain Charges 21738 1 0 11:58 AM CDT DERMATOPATHOLOGY LABORATORY Embedded Images 0 11:58 AM CDT DERMATOPATHOLOGY LABORATORY Pathology/Cytolog y TISSUE SPECIMEN FROM SKIN / Unknown 01/26/2020 01/27/2020 8:28 AM CDT us Arielle Teran DO LAB - PATHOLOGY/CYTOLOGY ORDERABLES Final Result DERMATOPATHOLOGY LABORATORY [facility] - Department of Dermatology Piped Buttonhole Machine [place] [address], [facility] [phone] documented in this encounter Visit Diagnoses Not on filedocumented in this encounter
--- OUTSIDE RECORDS SUMMARY | 2025-08-09 17:06 | XMS_ITS | Continuity of Care Document ---
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 At his request under sterile conditions I injected the patient's left knee joint in the office with 4 cc of 0.5% bupivacaine and 20 mg of triamcinolone. The patient tolerated the procedure well. I will see him back as needed we could do this again in 3 months if necessary he voiced understanding agrees above plan call for any further problems difficulties or questions. [email or web address] Not available 07/01/2025 14:19:11 Plan of Treatment Reminders Order Date Submit Date Provider Last Modified By Organization Details Last Modified Time Details Appointments None recorded. Lab None recorded. Referral None recorded. Procedures injection/a spiration joint/bursa (PROC) 2024 025 [email or web address] In-Office Order, Internal Use Only DO Not Attach Compendium DO Not Attach Compendium, Do Not Delete/merge, [id number] 13:55:17 Surgeries None recorded. Imaging None recorded. Medication Orders bupivacaine HCl 0.5 % (5 mg/mL) injection solution 2024 025 [email or web address] [facility] [address] [place], [address], 5 14:36:28 triamcinolo ne acetonide 40 mg/mL suspension for injection 2024 025 [email or web address] [facility] [address], [address], [place], [address], 5 14:36:28 Patient TargetsNo targets recorded. Patient InstructionsNo instructions recorded. Reason for Referral None Reported. Problems Name Problem SNOMED Code Status Onset Date Resolution Date Notes Provider Name and Address Organization Details Recorded Time Disorder of shoulder 446490300 Active 2018 Not Available [facility] 3 13:36:01 Full thickness rotator cuff tear 261995493 Active 2018 Not Available [facility] 3 13:36:02 Morbid obesity 699096463 Active 2019 Not Available [facility] 3 13:36:02 Knee pain Active 2020 Not Available [facility] 3 13:36:02 Bilateral osteoarthr itis of knees 2612234420150 07 Active 2021 Not Available [facility] 3 13:36:01 Tendinitis of right rotator cuff 0446992747553 9104 Active 2021 Not Available [facility] 3 13:36:01 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 3832683129601 00 Active 2021 Not Available [facility] 3 13:36:02 Pain of left knee joint 2884164559180 07 Active 2021 BENJAMIN Donahue [address], [place], [address] , [facility] 5 12:39:13 Pain of right knee joint 8014013609354 00 Active 2021 Not Available [facility] 3 13:36:02 Pain of left shoulder joint 6703652209275 9109 Active 2021 Not Available [facility] 3 13:36:01 Partial thickness rotator cuff tear 713639063 Active 2021 Not Available [facility] 3 13:36:01 Osteoarthr itis 978281695 Active 2021 Not Available [facility] 3 13:36:02 Pain of left knee region 5102020027724 09 Active 2021 Not Available [facility] 3 13:36:02 Rupture of rotator cuff of right shoulder 7218550873753 9103 Active 2022 Not Available [facility] 3 13:36:01 Tendinitis of left rotator cuff 4785186517596 9101 Active 2022 BENJAMIN Donahue [address], [place], [address] , [facility] 5 12:37:55 Partial thickness rotator cuff tear 066920080 Active 2022 BENJAMIN Donahue [address], [address], [place], [address] , [place] [facility] 3 10:59:32 Pain of right shoulder joint 7386853045317 9100 Active 2022 HEATHER Patterson, [place] [facility] 3 11:38:14 Partial thickness rotator cuff tear 527623764 Active 2022 BENJAMIN Donahue [address], [address], [place], [address] , [facility] 3 11:47:54 Nontraumat ic partial rupture of right rotator cuff 9437630539246 109 Active 2022 BENJAMIN Donahue [address], [place], [address] , [place] [facility] [place] [facility] 3 11:07:55 Pain of bilateral knee joints 0515563505537 04 Active 2023 HEATHER Patterson, [place] [facility] [place] [facility] 4 10:48:54 Problem Notes None recorded. Procedures Surgical History Date Name Laterality Status Provider Name and Address Organization Details Recorded Time 03/18/20 24 Orthovisc Injection completed Jenn Carter NP [address], [address], [place], [address], [facility] [employer] [facility] 03/18/2024 11:26:54 02/22/20 23 Ortho - Cortisone Injection completed Hiro Duke MD [address], [address], [place], [address], [facility] [employer] [facility] [email or web address] [facility] 02/21/2023 11:44:55 02/08/20 23 Ortho - Cortisone Injection completed Hiro Duke MD [address], [address], [place], [address], [facility] [employer] [facility] [email or web address] [facility] 02/07/2023 13:04:07 implantation of cardiac pacemaker completed IRON Taylor [place] [employer] [facility] [email or web address] [facility] 03/12/2025 12:00:10 Imaging Results None recorded. Procedure Notes None recorded. Medical Equipment None Reported. Allergies Allergen ID Allergen Name Allergen Category Reaction Reaction Severity Criticality Documentation Date Start Date Code Code System Note Provider Name and Address Organization Details Recorded Time 63538 Product containin g penicilli n (product) medicatio n Not available Not available Not available 10/10/2022 10813 8001 SNOMED Not Available [facility] 3 13:38:17 70119 amlodipin e medicatio n swelling Not available [facility] 06/30/20252024 37189 RxNorm Leg swell ing Not Available [employer] - prod 18:23:00 58123 penicilli n G Not available rash Not available [facility] 06/30/20252016 7980 RxNorm unrec ogniz ed react ion (text : Blist ers, code: 41409 7009) (from exter nal sour e) Not Available [employer] - prod 18:23:00 Medications Name Sig Start Date Stop [...] 20 mg by injection route. 2024 active [facility]: 0003- 0494- 20 Not Available Not Available [...] with needle 1 mL 31 gauge x 12/25 active Not Available Not Available Not Available [...] administe red by the provider 08/01 completed [facility]: 0409- 4276- 17 Not Available Not Available [...] 20 mg by injection route. 01/08 completed [facility] 47736 -064- 01 Not Available Not Available Not [...] Available Not Available Not Available Fluzone High-Dose 2018- (PF) 180 mcg/0.5 mL intramuscul ar syringe [...] and Address Organization Details Last Updated DateTime 07/01/2025 177.8 cm 35.6 kg/m2 983571.91 g HEATHER [place] - [place] [email or web address] 07/01/2025 13:52:33 Social History Question Answer Notes LastModified by [employer] Details LastModified Time Tobacco Smoking Status Unknown If Ever Smoked Not Available [facility] 10/10/2022 13:35:20 What Was The Date Of Your Most Recent Tobacco Screening? 07/20/2025 [email or web address] Information not available 07/20/2025 Sex: Unknown Functional Status Question Answer Note LastModified by [employer] Details LastModified Time What is your level of alcohol consumption? None [id number] Information not available 10/10/2022 Mental Status None recorded. Family History Relationship Description Onset Age of this Age Resolved Age Notes LastModified by Organization Details LastModified Time Father Family history of malignant neoplasm [id number] Not available 10/10/2022 13:35:28 Father Diabetes mellitus [id number].181 [id number] Not available 10/10/2022 13:35:28 Maternal Grandmother Hypertensive disorder [id number].881 [id number] Not available 10/10/2022 13:35:28 Maternal Grandmother Family history of stroke MIGRATION.872 [id number] Not available 10/10/2022 13:35:28 Maternal Grandfather Heart disease [id number].908 [id number] Not available 10/10/2022 13:35:28 Medical History Condition Response CANCER: SPECIFY Y ARTHRITIS Y USE OF BLOOD THINNERS Y VASCULAR DISEASE Y DIABETES, TYPE Y HEART DISEASE/HEART PROBLEMS Y HEART ARRHYTHMIA Y HYPERTENSION Y STROKE/TIA Y Past Encounters Encounter ID Performer Location Encounter Start Date Encounter Closed Date Diagnosis/Indication Diagnosis SNOMED-CT Code Diagnosis ICD10 Code Diagnosis IMO Codes Diagnosis Note [id number] Jacob Bridges MD [facility] Hogan [address] [place] [address] 07/01/2025 13:48:28 07/01/2025 15:08:35 Bilateral osteoarthritis of knees 6547147888 86981 M17.0 Pain of le ft knee joint 8448037547 51714 M25.562 [id number] Health Concerns Section Related Observation LastModified by Organization Detai ls LastModified Time None Recorded Concern Status LastModified by Organization Details LastModified Time None Recorded Payers Encounter Date Sequence Insurance Name Policy Number Policy Medina Covered Member ID Medina Member ID Guarantor Name 07/01/2025 1 [place] Ranjeet Jean-Pierre [id number] Ranjeet Morejon 07/01/2025 2 [employer] SU[employer]LE[employer]AL - [place] [employer] (MEDICARE SUPPLEMENT) Ranjeet Jean-Pierre [id number] Ranjeet Jean-Pierre Notes Date Note Type Note Provider Name and Address Organization Details Recorded Time 07/01/2025 text/html The patient returns with left knee pain. He has had previous cortisone injections with moderate primary osteoarthritis of both knees. The left knee is bothering him the right knee feels pretty good. He has aching pain about a 7 on a scale of 1-10 denies any new problems no new trauma or injury. Denies any effusion or swelling it has been almost 4 months since his last injection he would like another 1 today. BENJAMIN Donahue [address] [place] [address], [address], [place], [address], [facility] - S [employer] 07/01/2025 14:19:38
[2025-08-09 17:07] VITALS: BP 116/58; PULSE 63; RESP 18; O2SAT 98
--- OUTSIDE RECORDS SUMMARY | 2025-08-09 17:07 | XMS_ITS | Encounter Summary ---
Author Organization [facility] Healthcare Address [address] [place] [address] Care Team Providers Care Wafer Cleaner Name Role Phone João Brown MD Primary Care Provider Dash Youssef MD Unavailable [phone] Jimmy Freedman MD Unavailable Gorge Crain MD Unavailable [phone] Neville Flower MD Unavailable [phone] Encounter Details Date Type Department Care Team (Late st Contact Info) Description 03/21/2023 Telephone [facility] [address] [place] [address] Ceci Vogel, RN Social History Tobacco Use Types Packs/Day Years Used Date Smoking Tobacco: Never Smokeless Tobacco: Never Alcohol Use Standard Drinks/Week Comments No 0 (1 standard drink = 0.6 oz pur e alcohol) Social Connection and Isolation Panel Answer Date Recorded In a typical week, how many times do you talk on the phone with family, friends, or neighbors? More than three times a week 02/27/2021 How often do you get togethe r with friends or relatives? Three times a week 02/27/2021 How often do you attend chur ch or baptism services? More than 4 times per year 02/27/2021 Do you belong to any clubs o r organizations such as adventism groups, unions, fraternal or athletic groups, or school groups? No 02/27/2021 How often do you attend meet ings of the clubs or organizations you belong to? Never 02/27/2021 Are you , , di vorced, , never , or living with a partner? 02/27/2021 AUDIT-C Answer Date Recorded Q1: How often do you have a drink containing alc ohol? Never 06/29/2021 Q2: How many drinks containi ng alcohol do you have on a typical day when you are drinking? 1 or 2 06/29/2021 Q3: How often do you have six or more drinks on one occasion? Never 06/29/2021 Overall Financial Resource Strain (CARDIA) Answe r Date Recorded How hard is it for you to pa y for the very basics like food, housing, medical care, and heating? Not hard at all 02/27/2021 PHQ-2 Answer Date Recorded PHQ-2 Total Score (If total score is 3 or more points, staff should administer the PHQ-9) 0 04/20/2021 Hunger Vital Sign Answer Date Recorded Within the past 12 months, y ou worried that your food would run out before you got the money to buy more. Never true 02/28/20 21 Within the past 12 months, t he food you bought just didn't last and you didn't have money to get more. Never true 02/27/2021 PRAPARE - Transportation Answer Date Re corded In the past 12 months, has l ack of transportation kept you from medical appointments or from getting medications? No 02/09 In the past 12 months, has l ack of transportation kept you from meetings, work, or from getting things needed for daily living? No 02/27/2021 Housing Stability Vital Sign Answer Brandin e Recorded In the last 12 months, was t here a time when you were not able to pay the mortgage or rent on time? No 02/27/2021 In the last 12 months, how many places have you lived? 1 02/27/2021 In the last 12 months, was t here a time when you did not have a steady place to sleep or slept in a prison (including now)? 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 Auris swab negative. Monika Goodrich MSN, RN IP 10/19/2024 C.auris Ring Surveillance Flag is placed and removed manually by IP. However, if the patient is discharged before their swab is collected, it will remain on a patient's chart for 7 days after discharge in case the patient is re-admitted elsewhere. Pt is undergoing Ring Surveillance for admission to [facility] No swab collected as ordered 10/15/2024 10/15/2024 10/19/2024 2:32 PM C DT documented as of this encounter Care Teams Wafer Cleaner Relationship Specialty Start Date End Date João Brown MD [address] [place] [address] PCP - General 12/20/16 Dash Youssef MD [address] [facility] [address] [place] [address] Referring Physician Nephrology 01/13/18 [place] [address] [address] Consulting Physician Endocrinology Diabetes & Metabolism 09/09/18 [place] [address] [facility] [address], [place] [address] Consulting Physician Cardiothoracic Surgery 10/15/24 Neville Flower MD [address] [facility] [address] [place] [address] Consulting Physician Cardiology 10/15/24 documented as of this encounter
--- OUTSIDE RECORDS SUMMARY | 2025-08-09 17:07 | XMS_ITS | Patient Health Record ---
Author Organization [facility] Address [address] [place] [address] Care Team Providers Care Lieutenant Firefighter Name Role Phone Ellen Monzon Unavailable [phone] Kacey Zuniga Unavailable [phone] NaOtf sutherland Unavailable [phone] Allergies Allergen (clinical drug ingredient) Drug/Non Drug Allergy documented on EMR Reaction Allergy Type Onset Date Status Penicillin hives Drug Allergy Active Reason For Referral No Information Medications Medication SIG (Take, Route, Frequency, Duration) Notes Start Date End Date Status Sertraline HCl 25 MG TAKE 1 TABLET BY [facility] ONCE DAILY Oral; Duration: 90 Days Unknown BD Pen Needle Micro U/F 32G X 6 MM ; Duration: 25 Days Unknown Metoprolol Succinate ER 25 MG Oral; Duration: 90 Days Unkn own Furosemide 40 MG Oral; Duration: 45 Days Unknown Potassium Chloride Porsche ER 20 MEQ Oral; Duration: 90 Days Unkn own Levothyroxine Sodium 50 MCG Oral; Duration: 90 Days Unknown Nitroglycerin 0.4 MG DISSOLVE ONE TABLET UNDER THE TONGUE EVERY 5 MINUTES NEEDED FOR CHEST PAIN. DO NOT EXCEED A TOTAL OF 3 DOSES IN 15 MINUTES Sublingual; Duration: 8 Days Unknown Isosorbide Mononitrate ER 30 MG Oral; Duration: 90 Days Unkn own Atorvastatin Calcium 40 MG Oral; Duration: 90 Days Unknown Tresiba FlexTouch 200 UNIT/ML Subcutaneous; Duration: 90 Days Unknown Lisinopril 40 MG Oral; Duration: 90 Days Unknown Metoprolol Succinate 50 MG 1 capsule Ora lly Once a day Unknown Spironolactone 25 MG TAKE 1/2 (ONE-HALF) TABLET BY MOUTH ONCE DAILY Oral; Duration: 90 Days Unknown Gabapentin 100 MG Oral; Duration: 90 Days Unknown Eliquis 5 MG as directed Orally Unknown Social History Tobacco Use: Social History Observation Description Date Details (start date - stop date) Never Smoker NA - NA Tobacco Control (Standard) Question Answer Notes Tobacco use: Nonsmoker AUDIT-C (Standard) Question Answer Notes Did you have a drink containing alcohol in the p ast year? No Points 0 Interpretation Negative Problems Problem Type SNOMED Code ICD Code Onset Dates Problem Status W/U Status Risk Notes Problem Type 2 diabetes mellitus with other specified complication (E11.69) Active confirmed Problem Hyperlipidemia (46761506) Hyperlipidemia, unspecified (E78.5) Active confirmed Problem Lumbar spondylosis (848597489) Lumbar spondylosis (M47.816) Active confirmed Problem Leg length discrepancy (403182301) Leg length discrepancy (M21.70) Active confirmed Problem Hypercholesterolemia (00855227) Hypercholesterolemia (E78.00) Active confirmed Problem Lumbar radiculopathy (635216651) Lumbar radiculopathy (M54.16) Active confirmed Follow -up in 1 month Problem Aortic valve disease (2737825) Aortic valve disease (I35.9) Active confirmed Problem Sacroiliitis (36131475) Sacroiliitis (M46.1) Active confirmed Problem Obesity (451967101) Obesity (E66.9) Active conf irmed Problem Coronary artery disease (13116762) Coronary artery disease (I25.10) Active confirmed Problem Spinal stenosis of lumbar region (27324651) Iatrogenic stenosis of lumbar spine (M48.061) Active confirmed Problem Scoliosis (084932997) Lumbar sco liosis (M41.9) Active confirmed Problem Hypothyroidism (60723286) Hypothyroidism (E03.9) Active confirmed Problem Hypertension (05889791) Hypertension (I10) 1994 Active confirmed ICD F32.A- Depres dolores: Problem Displacement of lumbar intervertebral disc without myelopathy (68092216) Disc displacement, 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) Active confirmed Problem Acquired deformity o f spine (77573749) Neuroforaminal stenosis of lumbar spine (M48.061) Active confirmed Problem Angina pectoris (768472991) Angina pectoris (I20.9) Active confirmed Problem Atrial fibrillation (67154213) Atrial fibrillation (I48.91) Active confirmed Problem Long-term current us e of anticoagulant (448752339) Anticoagulated (Z79.01) Active confirmed Problem Diabetes mellitus (18953960) Diabetes mellitus (E11.9) 2003 Active confirmed Problem Myocardial infarctio n (46438332) Myocardial infarction (I21.9) Active confirmed Vital Signs Heart Rate 92 /min 06/03/2025 Respiratory Rate 18 /min 06/03/2025 Height-cm 175.26 cm 06/03/2025 Blood pressure diastolic 75 mm Hg 06/03/2025 Weight-kg 112.49 kg 06/03/2025 Height 5ft 9in in 06/03/2025 Blood pressure systolic 115 mm Hg 06/03/2025 Weight 248 lbs 06/03/2025 BMI 36.62 kg/m2 06/03/2025 Encounters Encounter Location Date Provider Diagnosis [facility] [address] [address] 08/24/2024 Ellen Monzon Left lumbar radiculopathy M54.16 [facility] [address] [place] [address] [address] [place] [address] 09/10/2024 Otf Monzon Lumbar spondylosis M47.816 ; Sacroiliitis M46.1 ; Obesity E66.9 ; Lumbar radiculopathy M54.16 ; Leg length discrepancy M21.70 ; Iatrogenic stenosis of lumbar spine M48.061 ; Hypothyroidism E03.9 ; Hypercholesterolemia E78.00 ; Coronary artery disease I25.10 ; Anticoagulated Z79.01 ; Lumbar scoliosis M41.9 ; Disc displacement, lumbar M51.26 ; Hypertension I10 ; Myocardial infarction I21.9 ; Diabetes mellitus E11.9 ; Atrial fibrillation I48.91 ; Lumbar spine pain M54.50 ; Neuroforaminal stenosis of lumbar spine M48.061 and Aortic valve disease I35.9 [facility] [address] [place] [address] [address] [place] [address] 10/06/2024 Otf Monzon Leg length discrepan cy M21.70 ; Lumbar spondylosis M47.816 ; Sacroiliitis M46.1 ; Obesity E66.9 ; Lumbar radiculopathy M54.16 ; Iatrogenic stenosis of lumbar spine M48.061 ; Hypothyroidism E03.9 ; Hypercholesterolemia E78.00 ; Coronary artery disease I25.10 ; Anticoagulated Z79.01 ; Lumbar scoliosis M41.9 ; Disc displacement, lumbar M51.26 ; Hypertension I10 ; Myocardial infarction I21.9 ; Diabetes mellitus E11.9 ; Atrial fibrillation I48.91 ; Neuroforaminal stenosis of lumbar spine M48.061 ; Aortic valve disease I35.9 ; Lumbar spine pain M54.50 and Arteriosclerotic coronary artery disease I25.10 [facility] [address] [place] [address] [address] [place] [address] 11/17/2024 Otf Na Leg length discrepan cy M21.70 ; Lumbar spondylosis M47.816 ; Sacroiliitis M46.1 ; Obesity E66.9 ; Lumbar radiculopathy M54.16 ; Iatrogenic stenosis of lumbar spine M48.061 ; Hypothyroidism E03.9 ; Hypercholesterolemia E78.00 ; Coronary artery disease I25.10 ; Anticoagulated Z79.01 ; Lumbar scoliosis M41.9 ; Disc displacement, lumbar M51.26 ; Hypertension I10 ; Myocardial infarction I21.9 ; Diabetes mellitus E11.9 ; Atrial fibrillation I48.91 ; Neuroforaminal stenosis of lumbar spine M48.061 ; Aortic valve disease I35.9 ; Lumbar spine pain M54.50 ; Type 2 diabetes mellitus E11.9 ; Type 2 diabetes mellitus with other specified complication E11.69 ; Hyperlipidemia, unspecified E78.5 ; Atherosclerotic heart disease I25.10 ; H/O heart artery stent Z95.5 ; Other specified postprocedural states Z98.890 and Personal history of other diseases of the circulatory system Z86.79 [facility] [address] [place] [address] [address] [place] [address] 11/26/2024 Ellen Monzon Lumbar radiculopathy M54.16 [facility] [address] [place] [address] [address] [place] [address] 12/10/2024 Otf Na Leg length discrepan cy M21.70 ; Lumbar spondylosis M47.816 ; Sacroiliitis M46.1 ; Obesity E66.9 ; Lumbar radiculopathy M54.16 ; Iatrogenic stenosis of lumbar spine M48.061 ; Hypothyroidism E03.9 ; Hypercholesterolemia E78.00 ; Coronary artery disease I25.10 ; Anticoagulated Z79.01 ; Lumbar scoliosis M41.9 ; Disc displacement, lumbar M51.26 ; Hypertension I10 ; Myocardial infarction I21.9 ; Diabetes mellitus E11.9 ; Atrial fibrillation I48.91 ; Neuroforaminal stenosis of lumbar spine M48.061 ; Aortic valve disease I35.9 ; Type 2 diabetes mellitus with other specified complication E11.69 ; Hyperlipidemia, unspecified E78.5 and Lumbar spine pain M54.50 [facility] [address] [place] [phone] 01/21/2025 Otf Monzon Lumbar radiculopathy M54.16 ; Iatrogenic stenosis of lumbar spine M48.061 ; Neuroforaminal stenosis of lumbar spine M48.061 ; Lumbar spine pain M54.50 ; Lumbar spondylosis M47.816 ; Diabetes mellitus E11.9 ; Coronary artery disease I25.10 ; Arteriosclerotic coronary artery disease I25.10 ; Pacemaker Z95.0 ; Anticoagulated Z79.01 ; Status post myocardial infarction I25.2 ; H/O heart artery stent Z95.5 ; CABG (coronary artery bypass graft) planned Z78.9 ; S/P CABG (coronary artery bypass graft) Z95.1 and Obesity E66.9 [facility] [address] [place] [phone] 04/01/2025 Otf Monzon Leg length discrepan cy M21.70 ; Lumbar spondylosis M47.816 ; Sacroiliitis M46.1 ; Obesity E66.9 ; Lumbar radiculopathy M54.16 ; Iatrogenic stenosis of lumbar spine M48.061 ; Hypothyroidism E03.9 ; Hypercholesterolemia E78.00 ; Coronary artery disease I25.10 ; Anticoagulated Z79.01 ; Lumbar scoliosis M41.9 ; Disc displacement, lumbar M51.26 ; Hypertension I10 ; Myocardial infarction I21.9 ; Diabetes mellitus E11.9 ; Atrial fibrillation I48.91 ; Neuroforaminal stenosis of lumbar spine M48.061 ; Aortic valve disease I35.9 ; Type 2 diabetes mellitus with other specified complication E11.69 ; Hyperlipidemia, unspecified E78.5 ; Lumbar spine pain M54.50 and Angina pectoris I20.9 [facility] [address] [place] [phone] 06/03/2025 Otf Monzon Leg length discrepan cy M21.70 ; Lumbar spondylosis M47.816 ; Sacroiliitis M46.1 ; Obesity E66.9 ; Lumbar radiculopathy M54.16 ; Iatrogenic stenosis of lumbar spine M48.061 ; Hypothyroidism E03.9 ; Hypercholesterolemia E78.00 ; Coronary artery disease I25.10 ; Anticoagulated Z79.01 ; Lumbar scoliosis M41.9 ; Disc displacement, lumbar M51.26 ; Hypertension I10 ; Myocardial infarction I21.9 ; Diabetes mellitus E11.9 ; Atrial fibrillation I48.91 ; Neuroforaminal stenosis of lumbar spine M48.061 ; Aortic valve disease I35.9 ; Type 2 diabetes mellitus with other specified complication E11.69 ; Hyperlipidemia, unspecified E78.5 ; Angina pectoris I20.9 and Lumbar spine pain M54.50 [facility] [address] [place] [phone] 01/07/2025 Kacey Zuniga [facility] [address] [place] [phone] 01/25/2025 Otf Monzon [facility] [address] [place] [phone] 02/17/2025 Otf Monzon Assessments Encounter Date Diagnosis (ICD Code) Assessment Notes Treatment Notes Treatment Clinical Notes Section Notes 08/24/2024 Left lumbar radiculopathy (ICD-10 - M54.16) 09/10/2024 Lumbar spondylosis (ICD-10 - M47.816) 09/10/2024 Sacroiliitis (ICD-10 - M46.1) 10/06/2024 Leg length discrepan cy (ICD-10 - M21.70) 11/17/2024 Leg length discrepan cy (ICD-10 - M21.70) 11/26/2024 Lumbar radiculopathy (ICD-10 - M54.16) Follow-up in 1 month 12/10/2024 Leg length discrepan cy (ICD-10 - M21.70) 01/21/2025 Lumbar radiculopathy (ICD-10 - M54.16) Follow-up in 1 month 04/01/2025 Lumbar spondylosis (ICD-10 - M47.816) 04/01/2025 Leg length discrepan cy (ICD-10 - M21.70) 06/03/2025 Lumbar spondylosis (ICD-10 - M47.816) 06/03/2025 Leg length discrepan cy (ICD-10 - M21.70) 06/03/2025 Sacroiliitis (ICD-10 - M46.1) 04/01/2025 Sacroiliitis (ICD-10 - M46.1) 01/21/2025 Iatrogenic stenosis of lumbar spine (ICD-10 - M48.061) 12/10/2024 Lumbar spondylosis (ICD-10 - M47.816) 11/17/2024 Lumbar spondylosis (ICD-10 - M47.816) 10/06/2024 Lumbar spondylosis (ICD-10 - M47.816) 09/10/2024 Obesity (ICD-10 - E66.9) 09/10/2024 Lumbar radiculopathy (ICD-10 - M54.16) 11/17/2024 Sacroiliitis (ICD-10 - M46.1) 10/06/2024 Sacroiliitis (ICD-10 - M46.1) 12/10/2024 Sacroiliitis (ICD-10 - M46.1) 04/01/2025 Obesity (ICD-10 - E66.9) 01/21/2025 Neuroforaminal steno sis of lumbar spine (ICD-10 - M48.061) 06/03/2025 Obesity (ICD-10 - E66.9) 06/03/2025 Lumbar radiculopathy (ICD-10 - M54.16) 04/01/2025 Lumbar radiculopathy (ICD-10 - M54.16) 12/10/2024 Obesity (ICD-10 - E66.9) 01/21/2025 Lumbar spine pain (ICD-10 - M54.50) 10/06/2024 Obesity (ICD-10 - E66.9) 11/17/2024 Obesity (ICD-10 - E66.9) 09/10/2024 Leg length discrepan cy (ICD-10 - M21.70) 10/06/2024 Lumbar radiculopathy (ICD-10 - M54.16) 09/10/2024 Iatrogenic stenosis of lumbar spine (ICD-10 - M48.061) 11/17/2024 Lumbar radiculopathy (ICD-10 - M54.16) 01/21/2025 Lumbar spondylosis (ICD-10 - M47.816) 12/10/2024 Lumbar radiculopathy (ICD-10 - M54.16) Follow-up in 1 month 04/01/2025 Iatrogenic stenosis of lumbar spine (ICD-10 - M48.061) 06/03/2025 Iatrogenic stenosis of lumbar spine (ICD-10 - M48.061) 06/03/2025 Hypothyroidism (ICD- 10 - E03.9) 01/21/2025 Diabetes mellitus (ICD-10 - E11.9) 04/01/2025 Hypothyroidism (ICD- 10 - E03.9) 12/10/2024 Iatrogenic stenosis of lumbar spine (ICD-10 - M48.061) 11/17/2024 Iatrogenic stenosis of lumbar spine (ICD-10 - M48.061) 10/06/2024 Iatrogenic stenosis of lumbar spine (ICD-10 - M48.061) 09/10/2024 Hypothyroidism (ICD- 10 - E03.9) 09/10/2024 Hypercholesterolemia (ICD-10 - E78.00) 10/06/2024 Hypothyroidism (ICD- 10 - E03.9) 11/17/2024 Hypothyroidism (ICD- 10 - E03.9) 01/21/2025 Coronary artery dise ase (ICD-10 - I25.10) 12/10/2024 Hypothyroidism (ICD- 10 - E03.9) 06/03/2025 Hypercholesterolemia (ICD-10 - E78.00) 04/01/2025 Hypercholesterolemia (ICD-10 - E78.00) 04/01/2025 Coronary artery dise ase (ICD-10 - I25.10) 01/21/2025 Arteriosclerotic coronary artery disease (ICD-10 - I25.10) 06/03/2025 Coronary artery dise ase (ICD-10 - I25.10) 12/10/2024 Hypercholesterolemia (ICD-10 - E78.00) 11/17/2024 Hypercholesterolemia (ICD-10 - E78.00) 09/10/2024 Coronary artery dise ase (ICD-10 - I25.10) 10/06/2024 Hypercholesterolemia (ICD-10 - E78.00) 09/10/2024 Anticoagulated (ICD- 10 - Z79.01) 11/17/2024 Coronary artery dise ase (ICD-10 - I25.10) 10/06/2024 Coronary artery dise ase (ICD-10 - I25.10) 12/10/2024 Coronary artery dise ase (ICD-10 - I25.10) 04/01/2025 Anticoagulated (ICD- 10 - Z79.01) 01/21/2025 Pacemaker (ICD-10 - Z95.0) 06/03/2025 Anticoagulated (ICD- 10 - Z79.01) 06/03/2025 Lumbar scoliosis (ICD-10 - M41.9) 01/21/2025 Anticoagulated (ICD- 10 - Z79.01) 04/01/2025 Lumbar scoliosis (ICD-10 - M41.9) 11/17/2024 Anticoagulated (ICD- 10 - Z79.01) 12/10/2024 Anticoagulated (ICD- 10 - Z79.01) 10/06/2024 Anticoagulated (ICD- 10 - Z79.01) 09/10/2024 Lumbar scoliosis (ICD-10 - M41.9) 09/10/2024 Disc displacement, lumbar (ICD-10 - M51.26) 10/06/2024 Lumbar scoliosis (ICD-10 - M41.9) 11/17/2024 Lumbar scoliosis (ICD-10 - M41.9) 12/10/2024 Lumbar scoliosis (ICD-10 - M41.9) 04/01/2025 Disc displacement, lumbar (ICD-10 - M51.26) 01/21/2025 Status post myocardi al infarction (ICD-10 - I25.2) 06/03/2025 Disc displacement, lumbar (ICD-10 - M51.26) 06/03/2025 Hypertension (ICD-10 - I10) 01/21/2025 H/O heart artery talha nt (ICD-10 - Z95.5) 04/01/2025 Hypertension (ICD-10 - I10) 12/10/2024 Disc displacement, lumbar (ICD-10 - M51.26) 11/17/2024 Disc displacement, lumbar (ICD-10 - M51.26) 10/06/2024 Disc displacement, lumbar (ICD-10 - M51.26) 09/10/2024 Hypertension (ICD-10 - I10) 09/10/2024 Myocardial infarctio n (ICD-10 - I21.9) 10/06/2024 Hypertension (ICD-10 - I10) ICD F32.A-Depress ion: 11/17/2024 Hypertension (ICD-10 - I10) ICD F32.A-Depress ion: 12/10/2024 Hypertension (ICD-10 - I10) ICD F32.A-Depress ion: 04/01/2025 Myocardial infarctio n (ICD-10 - I21.9) 01/21/2025 CABG (coronary arter y bypass graft) planned (ICD-10 - Z78.9) 06/03/2025 Myocardial infarctio n (ICD-10 - I21.9) 06/03/2025 Diabetes mellitus (ICD-10 - E11.9) 01/21/2025 S/P CABG (coronary artery bypass graft) (ICD-10 - Z95.1) 04/01/2025 Diabetes mellitus (ICD-10 - E11.9) 12/10/2024 Myocardial infarctio n (ICD-10 - I21.9) 11/17/2024 Myocardial infarctio n (ICD-10 - I21.9) 10/06/2024 Myocardial infarctio n (ICD-10 - I21.9) 09/10/2024 Diabetes mellitus (ICD-10 - E11.9) 09/10/2024 Atrial fibrillation (ICD-10 - I48.91) 10/06/2024 Diabetes mellitus (ICD-10 - E11.9) 11/17/2024 Diabetes mellitus (ICD-10 - E11.9) 01/21/2025 Obesity (ICD-10 - E66.9) 12/10/2024 Diabetes mellitus (ICD-10 - E11.9) 04/01/2025 Atrial fibrillation (ICD-10 - I48.91) 06/03/2025 Atrial fibrillation (ICD-10 - I48.91) 06/03/2025 Neuroforaminal steno sis of lumbar spine (ICD-10 - M48.061) 04/01/2025 Neuroforaminal steno sis of lumbar spine (ICD-10 - M48.061) 12/10/2024 Atrial fibrillation (ICD-10 - I48.91) 10/06/2024 Atrial fibrillation (ICD-10 - I48.91) 11/17/2024 Atrial fibrillation (ICD-10 - I48.91) 09/10/2024 Lumbar spine pain (ICD-10 - M54.50) 09/10/2024 Neuroforaminal steno sis of lumbar spine (ICD-10 - M48.061) 11/17/2024 Neuroforaminal steno sis of lumbar spine (ICD-10 - M48.061) 10/06/2024 Neuroforaminal steno sis of lumbar spine (ICD-10 - M48.061) 12/10/2024 Neuroforaminal steno sis of lumbar spine (ICD-10 - M48.061) 06/03/2025 Aortic valve disease (ICD-10 - I35.9) 04/01/2025 Aortic valve disease (ICD-10 - I35.9) 04/01/2025 Type 2 diabetes mellitus with other specified complication (ICD-10 - E11.69) 06/03/2025 Type 2 diabetes mellitus with other specified complication (ICD-10 - E11.69) 12/10/2024 Aortic valve disease (ICD-10 - I35.9) 11/17/2024 Aortic valve disease (ICD-10 - I35.9) 10/06/2024 Aortic valve disease (ICD-10 - I35.9) 09/10/2024 Aortic valve disease (ICD-10 - I35.9) 11/17/2024 Lumbar spine pain (ICD-10 - M54.50) 10/06/2024 Lumbar spine pain (ICD-10 - M54.50) 12/10/2024 Type 2 diabetes mellitus with other specified complication (ICD-10 - E11.69) 06/03/2025 Hyperlipidemia, unspecified (ICD-10 - E78.5) 04/01/2025 Hyperlipidemia, unspecified (ICD-10 - E78.5) 04/01/2025 Lumbar spine pain (ICD-10 - M54.50) 12/10/2024 Hyperlipidemia, unspecified (ICD-10 - E78.5) 11/17/2024 Type 2 diabetes mellitus (ICD-10 - E11.9) 06/03/2025 Angina pectoris (ICD -10 - I20.9) 10/06/2024 Arteriosclerotic coronary artery disease (ICD-10 - I25.10) 11/17/2024 Type 2 diabetes mellitus with other specified complication (ICD-10 - E11.69) 06/03/2025 Lumbar spine pain (ICD-10 - M54.50) 12/10/2024 Lumbar spine pain (ICD-10 - M54.50) 04/01/2025 Angina pectoris (ICD -10 - I20.9) 11/17/2024 Hyperlipidemia, unspecified (ICD-10 - E78.5) 11/17/2024 Atherosclerotic hear t disease (ICD-10 - I25.10) 11/17/2024 H/O heart artery talha nt (ICD-10 - Z95.5) 11/17/2024 Other specified postprocedural states (ICD-10 - Z98.890) 11/17/2024 Personal history of other diseases of the circulatory system (ICD-10 - Z86.79) 09/10/2024 Other Body Mass Index: Care Instructions material was printed The plan of care at this point is to keep patient on his anticoagulant medication. He needs his consultation with the cardiology team. Patient will be remain off of work for the next 6 weeks. He will be reevaluated again in approximately 4 weeks. He will let me know what the procedures will be and I will also contact Jacob Purvis prior to removing patient from any anticoagulant medications and considering reinjection. Patient would benefit from weight loss prior to reinjection. I do believe diagnostically the L4-5 level is the problem based upon his results with the injection and my review of the scan. Prior to an intervention whether be injection or possibly surgery patient needs to be stable from a cardiac point of view and needs to lose weight from the point of view of prognostic value of the procedure. Lengthy discussion was held with patient, patient's and manager case concerning these issues. 10/06/2024 Other Body Mass Index: Care Instructions material was printed, High Blood Pressure: Care Instructions material was printed Plan of care would be to reevaluate patient after completion of his valvular procedure to be done tomorrow. We will then evaluate patient for further treatment such as injection therapy. Patient remain off of work for next 8 weeks. 11/17/2024 Other Body Mass Index: Care Instructions material was printed, High Blood Pressure: Care Instructions material was printed, Learning About How to Have a Healthy Back material was printed, Body Mass Index: Care Instructions material was printed, High Blood Pressure: Care Instructions material was printed The plan of care at this point is for patient to undergo injection therapy. Patient will undergo an L4 5 injection. Patient will need to stop his Eliquis in advance. Patient remains off work. Plan was discussed with patient's manager case for approval. 12/10/2024 Other Body Mass Index: Care Instructions material was printed, High Blood Pressure: Care Instructions material was printed, Learning About How to Have a Healthy Back material was printed The plan of care at this point is to obtain restrictions. I recommended that patient can stand for about 20 minutes but needs to sit. He needs to sit for 10 to 15 minutes before he can stand again. This can be up to 5 hours. No lifting greater than 10 pounds. Patient will be scheduled to follow-up in 6 weeks. Copy of instructions were given to patient's manager case. Discussion was held the 3 of us in the room at the same time. I requested a copy of the independent medical evaluation of Dr. Bonilla as well. 04/01/2025 Other Body Mass Index: Care Instructions material was published, High Blood Pressure: Care Instructions material was published At this time, I believe the patient has tried returning back to work with the restrictions given. Although the restrictions that he is working with match the restrictions that he was given here and are in agreement with patient's independent medical evaluation performed by Dr. Rhonda Bonilla in November 2024, patient has failed these restrictions. Therefore I recommend the patient now be taken off of work and is permanently and totally disabled from his job. Even with the restrictions the patient was given and the number of shifts which she has worked his pain level as an 8/10. He has significantly worsened. Patient would normally be a surgical candidate but not for his cardiovascular problems. However, patient's comorbidities at this point provide an unfavorable risk-benefit ratio for patient to consider surgical intervention. Hopefully in the future this will change. At this time I am not recommending further treatment as I do not believe it is henderson to stop patient's anticoagulant medication again. 06/03/2025 Other Body Mass Index: Care Instructions material was published, Learning About Carbohydrate (Carb) Counting and Eating Out When You Have Diabetes material was published The plan of care at this point is for patient to follow-up in an as-needed basis. Patient states she does not have an advance directive for healthcare purposes. Patient was counseled on this. Patient does state to me that he is a DO NOT INTUBATE. He does not want to be on a ventilator. 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 He should then get me a copy to be get scanned into specify specifically what his wishes are. Plan Of Treatment Pending Test Test Name Order Date Leg Length 05/07/2024 X ray : Spines, lumbar 4 views Insurance Providers Payer Name Payer Address Payer Phone Subscriber Number Group Number Insured Name Patient Relationship to Insured Coverage Start Date Coverage End Date K [address] [place] [address] 000 Ranjeet Morejon Self - patient is the insured Medications Administered Medication Instructions Date of Administration Dosage Notes Lumb / Sacro Transfor Epidural 1st Level 08/24/2024 LEFT L3-4 TRA NS Lumb / Sacro Transfor Epidural 1st Level 11/26/2024 LEFT L4-5 TRA NS Sacroiliac Joint Injection 04/02/2024 LEFT SIJ Sacroiliac Joint Injection 04/14/2024 LEFT SIJ Medical (General) History Medical History History ICD Code S/P four-vessel bypass and a n [place] 3 years later with 2 stents. He is followed by Dr. Salmon braker passenger train at [facility]. He is on Plavix. He has occasional angina. uses nitroglycerin s/l last 2 weeks ago. hypertension and hypercholesterolemia. Surgical History Surgery Date(Month/Year) Bypass [place] 11/2009 2 stents [place] 08/2012 heart valve replacement pacemaker
--- OUTSIDE RECORDS SUMMARY | 2025-08-09 17:07 | XMS_ITS | Clinical Summary ---
Author Organization [facility] Address [address] [place] [address] Care Team Providers Care Blanking Machine Operator Name Role Phone João Brown MD Primary Care Provider Dash Youssef MD Unavailable [phone] Jimmy Freedman MD Unavailable Gorge Crain MD Unavailable [phone] Neville Flower MD Unavailable Allergies Active Allergy Reactions Criticality Noted Date Comments Amlodipine Swelling Medium 10/01/2024 Leg swelling Penicillin G Rash,Blisters High 04/08/2017 Penicillins Rash,Blisters High 09/10/2017 Rash Medications cholecalciferol (VITAMIN D-3) 5,000 unit capsule Take 1 capsule (5,000 Units total) by mouth every morning Active garlic 1,000 mg capsule Take 1,000 mg by mouth every morning Activ e oolof-by-1-dha-e bx-mzjwsby-buw 1,000-230-60 mg capsule Take 1,000 mg by mouth marine machinist before breakfast Active flash glucose sensor (FreeStyle Bonita 14 Day Sensor) kit 1 each every 14 (fourteen) days 2 kit 3 2019 Active flash glucose scanning reader (FreeStyle Bonita 14 Day [place]) misc 1 each continuously 1 each 2019 Active nitroglycerin (NITROSTAT) 0.[address] 1 tablet (0.4 mg total) under the tongue as needed for chest pain May repeat in 5 min if no relief. Call 911 if 3rd tab needed. 100 tablet 1 2019 Active lisinopriL (PRINIVIL,ZESTRI L) 20 mg tabletIndication s:Benign hypertensive kidney disease with chronic kidney disease stage I through stage IV, or unspecified(403. 10) Take 1 tablet (20 mg total) by mouth 2 (two) times a day 2020 Active Additional Information Patient taking differently:20 mg oralDaily, Reason: Side effects (pt had cough with BID dosing), Reported on 07/05/2025 insulin syringe-needle U-100 1/2 mL 31 gauge x 15/64 syringeIndicatio ns:Type 2 diabetes mellitus with hyperglycemia, with long-term current use of insulin (HCC) USE 1 SYRINGE 4 TIMES DAILY 400 each 2020 Active sertraline (ZOLOFT) 25 mg tablet Take 1 tablet (25 mg total) by mouth every morning 2021 Active potassium chloride ER 20 mEq CR tablet Take 1 tablet (20 mEq total) by mouth 2 (two) times a day 180 tablet 3 2022 Active BD Ultra-Fine Micro Pen Needle 32 gauge x 1/4 needle USE 1 NEEDLE FIVE TIMES DAILY WITH INSULIN 500 each 3 2022 Active metoprolol XL (TOPROL-XL) 25 mg extended release tablet TAKE 1 TABLET EVERY DAY 90 tablet 3 2023 Active Additional Information Patient not taking.Reported on 05/24/2025 blood-glucose meter,continuous misc Use to check blood sugars 1 each 2024 Active insulin degludec (TRESIBA) 200 unit/mL (3 mL) pen for injectionIndicat ions:Type 2 diabetes mellitus with hyperglycemia, with long-term current use of insulin ([facility]) Inject 0.18 mL (36 Units total) under the skin every morning 18 mL 3 09/17 Active Additional Information Patient taking differently: 35 Unitssubcutaneous Every morning, Informant: Self, Reported on 05/24/2025 B.animalis,bifid ,infantis,long (PROBIOTIC 4X ORAL) Take 1 tablet by mouth marine machinist before breakfast Active UNABLE TO FIND Take 1 each by mouth 3 (three) times a day as needed (supplement) Med Name: Golo - dietary supplement - taken with every meal Active furosemide (LASIX) 40 mg tablet TAKE 1 TABLET TWICE DAILY 180 tablet 3 2024 Active atorvastatin (LIPITOR) 40 mg tabletIndication s:Type 2 diabetes mellitus with hyperglycemia, with long-term current use of insulin ([facility]),Mixed hyperlipidemia Take 2 tablets (80 mg total) by mouth every morning 2024 Active acetaminophen (TYLENOL) 325 mg tablet Take 2 tablets (650 mg total) by mouth every 4 (four) hours as needed for pain 2024 Active docusate sodium (COLACE) 100 mg capsule Take 1 capsule (100 mg total) by mouth 2 (two) times a day 10 capsule 2024 Active FreeStyle Bonita 3 Sensor deviceIndication s:Type 2 diabetes mellitus with hyperglycemia, with long-term current use of insulin ([facility]) Change sensor every 15 days 6 each 3 2024 Active clindamycin (CLEOCIN) 150 mg capsule 2024 Active insulin aspart (NovoLOG) 100 unit/mL (3 mL) pen for injectionIndicat ions:Type 2 diabetes mellitus with hyperglycemia, with long-term current use of insulin ([facility]) INJECT 16 UNITS 3X/DAY WITH MEALS PLUS CORRECTION SCALE: 151-200=2U; 201-250=4U; 251-300=6U; 301-350=8U; OVER 351=10U 75 mL 3 2024 Active levothyroxine (SYNTHROID) 50 mcg tabletIndication s:Acquired hypothyroidism TAKE 1 TABLET (50 MCG TOTAL) BY MOUTH ENGINEERING LECTURER BEFORE BREAKFAST 90 tablet 3 05/12 Active gabapentin (NEURONTIN) 100 mg capsule TAKE 3 CAPSULES TWICE DAILY 540 capsule 3 2024 Active blood-glucose meter (Accu-Chek Guide Me Glucose Mtr) miscIndications: Type 2 diabetes mellitus with hyperglycemia, with long-term current use of insulin ([facility]) Use to check blood sugars 1 each 2024 Active blood glucose diagnostic (Accu-Chek Guide test strips) stripIndications :Type 2 diabetes mellitus with hyperglycemia, with long-term current use of insulin ([facility]) Use to check blood sugars two times daily 200 strip 3 2024 Active isosorbide mononitrate ER (IMDUR) 30 mg 24 hr tablet TAKE 3 TABLETS EVERY DAY 270 tablet 3 2024 Active apixaban (ELIQUIS) 5 mg tablet Take 1 tablet (5 mg total) by mouth 2 (two) times a day 56 tablet 3 07/07 Active spironolactone (ALDACTONE) 25 mg tablet Take 1/2 (one-half) tablet by mouth once daily 45 tablet 1 2024 Active spironolactone (ALDACTONE) 25 mg tablet Take 1/2 (one-half) tablet by mouth once daily 45 tablet 08/06 Discontinued Active Problems Problem Noted Date Diagnosed Date Pacemaker 01/01/2025 Complete heart block 10/22/2024 Assessment & Plan (10/23/2024 11:38 AM CDT): Discharged from [facility] on 10/15 after successful TAVR for 6mo-1yr hx of progressive SOB. No post-procedure complications. TTE (10/15) post-TAVR: EF 45%, mild RV hypokinesis, ANTHONY 1.58, mean gradient 7.24. Presented w/ 2-day hx of weakness and lightheadedness after taking home metop resulting in fall 10/18 AM. No LOC or head strike. HR 30s- 40s, noted to be in A-flutter w/ ventricular rate of 30 per EMS. S/p 0.5mg atropine x 2 w/ improvement in rate to 60. CT surg consulted in ED. Otherwise, HDS. Likely result of known complication of TAVR due to proximity to AV node and conduction pathway. TVP placed in ED but issues with capturing, resulting in Temp-Perm placed 3/10 AM. Intermittent loss of capture 310 PM, Temp-Perm found to be dislodged on repeat CXR. New TVP placed 10/20 AM. - s/p SOCIAL SCIENCES INSTRUCTOR-P with EP on 10/21 - Hold home metop Anxiety 10/22/2024 Assessment & Plan (10/22/2024 1:53 PM CDT): Continue home sertraline Acute hypoxic respiratory failure 10/22/2024 Assessment & Plan (10/23/2024 11:40 AM CDT): Presented w/ SOB likely 2/2 bradycardia and CHB. Required 15L NRB in the ED, now resolved and on room air Cellulitis 10/22/2024 Assessment & Plan (10/23/2024 11:39 AM CDT): S/p initial management with cephalexin, transitioned to vanc for post-procedural abx and will complete treatment on 10/23 prior to DC Bradycardia 10/18/2024 S/P TAVR (transcatheter aortic valve replacement ) 10/14/2024 Assessment & Plan (10/15/2024 7:29 AM LEAD MANUFACTURING ENGINEERING TECH): CXR and TTE today PT/OT eval today ASA 81 mg daily Restart Eliquis Monitor on telemetry for any evidence of AV block Atrial flutter 10/07/2024 Assessment & Plan (10/23/2024 11:37 AM CDT): Holding AC given recent procedure - Restat eliquis on 10/25 - hold metop Assessment & Plan (10/15/2024 7:29 AM LEAD MANUFACTURING ENGINEERING TECH): Monitor on telemetry Restart Eliquis Assessment & Plan (10/07/2024 3:45 PM LEAD MANUFACTURING ENGINEERING TECH): Monitor on telemetry Restart Eliquis 10/08 if no bleeding issues post-TAVR Severe aortic stenosis 09/16/2024 Assessment & Plan (10/07/2024 3:41 PM LEAD MANUFACTURING ENGINEERING TECH): TAVR 10/07 CXR, EKG and labs in PACU CXR, EKG, TTE and labs tomorrow AM PT/OT eval tomorrow AM Monitor on telemetry for any evidence of AV block Continue ASA 81 mg daily GUDELIA (acute kidney injury) 02/25/2021 Assessment & Plan (02/26/2021 1:21 PM CDT): - has CKD with baseline Cr of 1.5. Up trended to 1.98 on 02/25 - most likely due to pre-renal from overdiuresis with reported diarrhea and poor oral intake. - held lisinopril and lasix with improvement today. Will resume lasix and hold lisinopril for another 4 days. COVID-19 02/23/2021 Assessment & Plan (02/26/2021 1:18 PM CDT): - Prior COVID vaccination in Sep 2020 - Could have new variant of COVID - Currently with no O2 requirements, held off Dex/Rem. Had mild GUDELIA but that is likely 2/2 pre-renal and has resolved. - CRP elevated and D dimer slightly elevated that has since down trending. - clinically stable and ok to discharge today. Assessment & Plan (02/23/2021 7:18 AM CDT): - Prior COVID vaccination in Sep 2020 - Could have new variant of COVID - Currently with no O2 requirements, hold off Dex/Rem - Telemetry monitoring with continuous pulse oximetry - Symptomatic management Assessment & Plan (02/23/2021 7:06 AM CDT): - Prior COVID vaccination in Sep 2020 - Could have new variant of COVID - Currently with no O2 requirements, hold off Dex/Rem - Telemetry monitoring with continuous pulse oximetry - Symptomatic management Chest discomfort 02/23/2021 Assessment & Plan (02/26/2021 1:20 PM CDT): - Described as substernal palpitations, improved with Nitro in the ED - had PVCs and reported VTach at urgent care on Saturday, in patient with known ischemic heart disease. Patient has chronic PVCs as per his filtrose crusher's note. - EKG with unchanged TWI in V1-2. On tele continues to have frequent PVCs with intermittent short spells of NSVT - troponin trend remained wnl. - Goal K, Mg and Phos at 4, 2 and 3 respectively. Continued metoprolol. Discussed with cardiology and plan for outpatient appointment. - PRN nitro Assessment & Plan (02/23/2021 7:19 AM CDT): - Described as substernal palpitations, improved with Nitro - Concerning given PVCs and reported VTach at urgent care on Saturday, in patient with known ischemic heart disease - EKG with unchanged TWI in V1-2 - Could represent NSTEMI vs type II IA (triggered by CHF/dyspnea/LE swelling) - Trend Troponin Q4H to peak - Telemetry monitoring - Keep K, Mg and Phos at 4, 2 and 3 respectively - Consult Cardiology if has runs of Vtach - PRN nitro - Consider CT PE protocol - Consider increasing diuresis Assessment & Plan (02/23/2021 7:14 AM CDT): - Described as substernal palpitations, improved with Nitro - Concerning given PVCs and reported VTach at urgent care on Saturday, in patient with known ischemic heart disease - EKG with unchanged TWI in V1-2 - Could represent NSTEMI vs type II IA (triggered by CHF/dyspnea/LE swelling) - Trend Troponin Q4H to peak - Telemetry monitoring - Keep K, Mg and Phos at 4, 2 and 3 respectively - Consult Cardiology if has runs of Vtach - PRN nitro - Consider CT PE protocol - Consider increasing diuresis Thrombocytopathia 02/23/2021 Assessment & Plan (02/25/2021 8:02 AM CDT): - No evidence of liver disease or portal hypertension - stable and needs outpatient evaluation. Continue to monitor Assessment & Plan (02/23/2021 7:19 AM CDT): - No evidence of liver disease or portal hypertension - Continue to monitor Assessment & Plan (02/23/2021 7:13 AM CDT): - No evidence of liver disease or portal hypertension - Continue to monitor Hyperlipidemia associated with type 2 diabetes chetna cosby 04/04/2020 Assessment & Plan (2024 2:58 PM LEAD MANUFACTURING ENGINEERING TECH): Pt on statin therapy tolerating well Assessment & Plan (11/11/2023 12:40 PM CDT): Pt on statin therapy tolerating well Assessment & Plan (09/03/2023 11:50 AM LEAD MANUFACTURING ENGINEERING TECH): Chronic problem. Currently taking Atorvastatin 80mg. Last lipid panel: 01/31/23 LDL=75, BQ=554. Assessment & Plan (05/19/2023 12:39 PM CDT): Pt on statin therapy tolerating well Assessment & Plan (01/31/2023 10:54 AM CDT): Chronic problem. Currently taking Atorvastatin 80mg. Last lipid panel: 12/28/21 LDL=69, LH=682. Will update labs today. Does not mychart. Verified phone #/address to contact re: results. Assessment & Plan (10/15/2022 4:02 PM LEAD MANUFACTURING ENGINEERING TECH): Pt on statin therapy tolerating well Assessment & Plan (05/24/2022 8:30 AM CDT): Chronic problem. On statin therapy, no changes. Assessment & Plan (12/28/2021 11:33 AM CDT): Chronic problem. On statin therapy, no changes. Assessment & Plan (06/29/2021 11:00 AM LEAD MANUFACTURING ENGINEERING TECH): - Continue atorvastatin 40 mg daily Assessment & Plan (06/28/2021 12:17 PM LEAD MANUFACTURING ENGINEERING TECH): - Continue atorvastatin 40 mg daily Assessment & Plan (04/20/2021 3:16 PM CDT): Pt on statin therapy tolerating well Assessment & Plan (11/17/2020 3:25 PM CDT): At goal on current medications. Continue statin therapy. Assessment & Plan (07/25/2020 12:59 PM LEAD MANUFACTURING ENGINEERING TECH): Pt on statin therapy tolerating well Assessment & Plan (04/04/2020 12:38 PM CDT): Pt on statin therapy tolerating well Reviewed recent lipid panel lab results Type 2 diabetes mellitus with peripheral neuropa thy 04/04/2020 Assessment & Plan (09/03/2023 11:50 AM LEAD MANUFACTURING ENGINEERING TECH): Chronic problem. Currently taking gabapetin 300mg bid. Aware to check feet nightly & not go barefoot. Assessment & Plan (01/31/2023 10:55 AM CDT): Chronic problem. Currently taking gabapetin 300mg bid. Aware to check feet nightly, don't go barefoot. No changes. Assessment & Plan (06/29/2021 11:08 AM LEAD MANUFACTURING ENGINEERING TECH): home regimen Degludec 45 units daily and Aspart SSI 30 units TID - Glargine 33 units daily, Lispro 11 units TID plus HD sliding scale insulin - carbohydrate consistent diet Assessment & Plan (06/28/2021 12:19 PM LEAD MANUFACTURING ENGINEERING TECH): home regimen Degludec 45 units daily and Aspart SSI 30 units TID - Glargine 33 units daily, Lispro 11 units TID plus HD sliding scale insulin - carbohydrate consistent diet Assessment & Plan (02/26/2021 1:17 PM CDT): - At home on Degludec 45 units daily and Aspart SSI with meals (usually takes around 29 units TID AC). Hgb a1c is 10.1 - managed with Glargine 45 units daily + Aspart 20 units TID AC + SSI high- intensity TID AC. Had low BS yesterday with low oral intake. - will discharge on home regimen. Recommended patient to check BS 3 times/day for possible need of insulin adjustment. Patient reports that his oral intake is much more at home. Assessment & Plan (02/23/2021 7:18 AM CDT): - At home on Degludec 45 units daily and Aspart SSI with meals (usually takes around 29 units TID AC) - Glargine 45 units daily - Aspart 20 units TID AC - SSI high-intensity TID AC Assessment & Plan (02/23/2021 7:15 AM CDT): - At home on Degludec 45 units daily and Aspart SSI with meals (usually takes around 29 units TID AC) - Glargine 45 units daily - Aspart 20 units TID AC - SSI high-intensity TID AC Assessment & Plan (07/25/2020 1:03 PM LEAD MANUFACTURING ENGINEERING TECH): Chronic, stable, improving On Gabapentin Therapy Work on tighter glycemic control Assessment & Plan (04/04/2020 12:41 PM CDT): Worsening , Increase Gabapentin dose Work on tighter glycemic control Coronary artery disease 01/06/2020 Assessment & Plan (10/22/2024 1:52 PM CDT): 3v CABG (2008):PIERRE-LAD, SVG-RPL, D1-CX/OM), PCI to LCx and RCA (2018). [facility] 06/2024: mild LM plaquing, LAD occluded, LCX 30% prox occlusion as well as downstream mild plaquing, RCA w/ mild plaquing and patent prox stent, diffuse PDA disease, distal stent with 50% narrowing in midportion; grafts (patent FREDIS-LAD, free [id number] graft is patent. Follows with Dr. Purvis. - Continue aspirin 81 - Continue atorva 80 Assessment & Plan (10/14/2024 12:15 PM LEAD MANUFACTURING ENGINEERING TECH): Previous CABG (FREDIS-LAD, [id number]) PCI to circumflex and RCA in 2019 Recent [facility] with patent grafts, mild to moderate CAD noted in LM/circumflex/RCA Continue ASA and high intensity statin Assessment & Plan (05/10/2023 1:20 PM CDT): Stable, SP CABG in 2008 and then with PCI with LEONOR to OM and RCA in 2018. [facility] in 2020 with patent stentsto pLCX and RPL and FREDIS to LAD, radial to D1-OM1 grafts with severe distal disease. Denies chest pain. Continue ASA, Plavix, Lipitor 40 mg daily and BB. Imdur stopped in the setting of severe in Jan[place], I see that it is still on his med list, I have messaged him to clarify. LDL at goal 01/2023 Assessment & Plan (02/25/2023 3:37 PM CDT): Stable, SP CABG in 2008 and then with PCI with LEONOR to OM and RCA in 2018. [facility] in 2020 with patent stentsto pLCX and RPL and FREDIS to LAD, radial to D1-OM1 grafts with severe distal disease. Denies chest pain. Continue ASA, Plavix, Lipitor 40 mg daily and BB. Imdur stopped in the setting of severe . LDL at goal 01/2023 Assessment & Plan (06/29/2021 11:10 AM LEAD MANUFACTURING ENGINEERING TECH): S/p CABG and PCI ( last 07/14/19 with LEONOR to OM and RCA - Continue aspirin, atorvastatin, Plavix, imdur and metoprolol - NPO for [facility] today Assessment & Plan (06/28/2021 12:25 PM LEAD MANUFACTURING ENGINEERING TECH): S/p CABG and PCI ( last 07/14/19 with LEONOR to OM and RCA - Continue aspirin, atorvastatin, Plavix, imdur and metoprolol - NPO for [facility] tomorrow Assessment & Plan (01/06/2020 5:24 AM CDT): CABG 2008 (FREDIS-LAD, jump radial to D1 to CX/OM, SVG-RPL), PCI with LEONOR to RCA and OM (07/2019). Patient complaining of chest pain, however, EKG and troponin are reassuring as well as recent stress test. - will continue metop tartrate 50mg, lisinopril 20mg, ranolazine 500mg BID, plavix 75mg, ASA 81, amlodipine 10mg, imdur 30mg, and atorva 40mg - can consider increasing anti-angintal medication (imdur) to see if this imrpoves pain profile - encourage lifestyle modifications - compliance w/ CPAP Aortic valve stenosis 12/01/2019 Assessment & Plan (10/14/2024 12:11 PM LEAD MANUFACTURING ENGINEERING TECH): TAVR 3/5 Assessment & Plan (05/10/2023 1:16 PM CDT): Moderate on TOD 03/2023. With mild LV dysfunction, on BB and CARMELO., added MRA today, SGLT2 cost prohibitive Assessment & Plan (02/25/2023 3:28 PM CDT): OSH read as: he had an ECHO while in house that showed moderate to severe with a valve area of 0.8 and an EF of 55-60% and a mean gradient of 19 and with AI. TOD to assess severity of and plan for Valve team referral. Angina pectoris, unstable 07/11/2019 Assessment & Plan (07/13/2019 2:39 PM LEAD MANUFACTURING ENGINEERING TECH): Known CAD with previous 4v CABG in 2008 ([facility]), PCI of RPLV branch of RCA in 2012 and known severe CAD of FREDIS and [place] LAD with chest pain - troponin neg x3, denies ongoing chest pain - attempted stress echo this morning but bradycardic and unable to increase heart rate - echo with new akinetic apex, plan LHC in AM - begin heparin drip if recurrent chest pain - continue aspirin, plavix, imdur, lisinopril, metoprolol, atorvastatin, amlodipine Assessment & Plan (07/13/2019 12:26 PM LEAD MANUFACTURING ENGINEERING TECH): Known CAD with previous 4v CABG in 2008 ([facility]), PCI of RPLV branch of RCA in 2012 and known severe CAD of FREDIS and [place] LAD with chest pain - troponin neg x3, denies ongoing chest pain - attempted stress echo this morning but bradycardic and unable to increase heart rate - nuclear stress in AM - begin heparin drip if recurrent chest pain - continue aspirin, plavix, imdur, lisinopril, metoprolol, ranexa, atorvastatin, amlodipine Assessment & Plan (07/12/2019 12:04 PM LEAD MANUFACTURING ENGINEERING TECH): Known CAD with previous 4v CABG in 2008 ([facility]), PCI of RPLV branch of RCA in 2012 and known severe CAD of FREDIS and [place] LAD with chest pain - troponin <0.03 - 0.03 - <0.03, now pain free - NPO after midnight for stress echo in am - hold metoprolol in am for SE - begin heparin drip if recurrent chest pain - continue aspirin, plavix, imdur, lisinopril, metoprolol, ranexa, atorvastatin, amlodipine Assessment & Plan (07/11/2019 9:42 PM LEAD MANUFACTURING ENGINEERING TECH): - The patient has an extensive history of coronary artery disease with prior CABG and PCI (in 2012) and is now presenting with unstable angina - ECG unchanged from prior; first troponin negative - Will plan to continue to trend troponins - Continue aspirin, Plavix, Ranexa, Imdur, Metoprolol, and lisinopril - Will discuss with general cardiology regarding stress test vs. LHC Chest pain 07/11/2019 Overview (07/13/2019): Added automatically from request for surgery [id number] Assessment & Plan (06/29/2021 11:09 AM LEAD MANUFACTURING ENGINEERING TECH): Atypical chest with dyspnea in patient with known CAD but diaphoresis, nausea or vomiting - Hypertensive but no physical exam findings concerning for acute volume overload or end organ hypoperfusion; Serum troponin negative, EKG without any acute ischemic changes, CXR w/o any acute pulmonary process - NPO after midnight for LHC today - Continue home ASA, atorvastatin, Plavix and metoprolol - Resume Imdur once off nitro drip Assessment & Plan (06/28/2021 12:25 PM LEAD MANUFACTURING ENGINEERING TECH): Atypical chest with dyspnea in patient with known CAD but diaphoresis, nausea or vomiting - Hypertensive but no physical exam findings concerning for acute volume overload or end organ hypoperfusion; Serum troponin negative, EKG without any acute ischemic changes, CXR w/o any acute pulmonary process - NPO after midnight for LHC in am - Continue home ASA, atorvastatin, Plavix and metoprolol - Resume Imdur once off nitro drip Assessment & Plan (01/06/2020 6:26 AM CDT): RESOLVED. Patient w/ significant cardiac hx (CABG 2008, PCI 07/2019 w x2 LEONOR), obesity, HTN, DM, HLD, and CKD. However, recent nuclear stress test on 12/15/2019 WITHOUT new, reversible areas of ischemia. Also, troponin 0.03 x2 and EKG w/o acute ST changes. This chest pain may be stable angina in the setting of known CAD. - will continue GDMT - will encourage lifestyle modifications - will likely benefit from cardiac rehab (although given current COVID-19 pandemic, maybe difficult) - will continue ranexa Disorder of shoulder 2019 Benign hypertensive kidney d isease with chronic kidney disease stage I through stage IV, or unspecified(403.10) 04/09/2017 Assessment & Plan (10/15/2022 4:02 PM LEAD MANUFACTURING ENGINEERING TECH): HTN, chronic, well controlled Assessment & Plan (04/04/2020 12:38 PM CDT): HTN, chronic, well controlled Assessment & Plan (12/28/2019 9:45 PM CDT): HTN, chronic, well controlled Assessment & Plan (09/22/2019 9:06 AM LEAD MANUFACTURING ENGINEERING TECH): HTN, chronic, well controlled Assessment & Plan (06/15/2019 10:17 PM LEAD MANUFACTURING ENGINEERING TECH): HTN, chronic, well controlled Assessment & Plan (08/04/2018 10:10 PM LEAD MANUFACTURING ENGINEERING TECH): HTN, chronic, well controlled Assessment & Plan (04/21/2018 10:50 AM CDT): HTN, chronic, well controlled Assessment & Plan (02/24/2018 4:24 PM CDT): HTN, chronic, well controlled Assessment & Plan (01/13/2018 1:22 PM CDT): BP well controlled Continue current regimen Assessment & Plan (09/23/2017 4:54 PM LEAD MANUFACTURING ENGINEERING TECH): BP well controlled Continue current regimen Assessment & Plan (07/03/2017 8:24 AM LEAD MANUFACTURING ENGINEERING TECH): BP well controlled Continue current regimen Assessment & Plan (04/22/2017 11:46 AM CDT): BP well controlled Continue current regimen Assessment & Plan (04/14/2017 5:45 PM CDT): BP well controlled Continue current regimen Retinopathy 04/09/2017 Assessment & Plan (01/13/2018 1:21 PM CDT): Strongly advised to follow up with supervisor cook house Assessment & Plan (09/23/2017 4:55 PM LEAD MANUFACTURING ENGINEERING TECH): Strongly advised to follow up with supervisor cook house Assessment & Plan (07/03/2017 8:23 AM LEAD MANUFACTURING ENGINEERING TECH): Strongly advised to follow up with supervisor cook house Assessment & Plan (04/14/2017 5:49 PM CDT): Strongly advised to follow up with supervisor cook house Stage 3 chronic kidney disease 04/09/2017 Assessment & Plan (10/14/2024 12:12 PM LEAD MANUFACTURING ENGINEERING TECH): Monitor creatinine closely Avoid nephrotoxins Assessment & Plan (10/07/2024 3:41 PM LEAD MANUFACTURING ENGINEERING TECH): Monitor closely Avoid nephrotoxins Assessment & Plan (09/03/2023 11:51 AM LEAD MANUFACTURING ENGINEERING TECH): Chronic problem. Managed by Dr Youssef. Currently taking CARMELO-I Last creat/GFR: 06/19/23 GFR=41, CR=1.75. Assessment & Plan (05/10/2023 1:32 PM CDT): Follow up with Nephrology. Assessment & Plan (06/29/2021 10:50 AM LEAD MANUFACTURING ENGINEERING TECH): Baseline Cr 1.5 per previous notes - continue to monitor - avoid nephrotoxins as able Assessment & Plan (06/28/2021 12:15 PM LEAD MANUFACTURING ENGINEERING TECH): Baseline Cr 1.5 per previous notes - continue to monitor - avoid nephrotoxins as able Assessment & Plan (04/04/2020 12:39 PM CDT): Chronic , stable Pt follows with [employer] [facility] [facility] Assessment & Plan (01/06/2020 5:26 AM CDT): Patient has Chronic CKD, creatinine is 1.67, close to baseline - CTM - avoid nephrotoxic agents Assessment & Plan (12/28/2019 9:44 PM CDT): Chronic, stable Assessment & Plan (09/22/2019 9:05 AM LEAD MANUFACTURING ENGINEERING TECH): Chronic, stable Assessment & Plan (07/13/2019 2:40 PM LEAD MANUFACTURING ENGINEERING TECH): Creatinine at baseline -will hold ACEI and hydrate pre [facility] Assessment & Plan (07/13/2019 12:32 PM LEAD MANUFACTURING ENGINEERING TECH): Creatinine at baseline Assessment & Plan (07/12/2019 12:03 PM LEAD MANUFACTURING ENGINEERING TECH): Baseline creatinine ~ 1.3, 1.66 on admission - daily BMP while inpatient Assessment & Plan (07/11/2019 9:44 PM LEAD MANUFACTURING ENGINEERING TECH): - Creatinine 1.66 on admission, which appears higher than his baseline creatinine (1.3); continue to monitor Assessment & Plan (06/15/2019 10:19 PM LEAD MANUFACTURING ENGINEERING TECH): Recheck BMP Assessment & Plan (08/04/2018 10:10 PM LEAD MANUFACTURING ENGINEERING TECH): Follows with [facility] Assessment & Plan (04/21/2018 10:49 AM CDT): Follows with [facility] [facility] [facility] Assessment & Plan (02/24/2018 4:23 PM CDT): Follows with [facility] [facility] [facility] Assessment & Plan (01/13/2018 1:22 PM CDT): Follows with [facility] [facility] [facility] Assessment & Plan (09/23/2017 4:54 PM LEAD MANUFACTURING ENGINEERING TECH): Follows with [facility] [facility] [facility] Assessment & Plan (07/03/2017 8:24 AM LEAD MANUFACTURING ENGINEERING TECH): Follows with [facility] [facility] [facility] Assessment & Plan (04/22/2017 11:46 AM CDT): Follows with [facility] [facility] [facility] Assessment & Plan (04/14/2017 5:45 PM CDT): Follows with [facility] [facility] [facility] FEDERICO (obstructive sleep apnea) 04/09/2017 Assessment & Plan (10/22/2024 1:54 PM CDT): CPAP Assessment & Plan (10/14/2024 12:12 PM LEAD MANUFACTURING ENGINEERING TECH): Continue CPAP Assessment & Plan (10/07/2024 3:41 PM LEAD MANUFACTURING ENGINEERING TECH): Continue CPAP Assessment & Plan (07/13/2019 2:41 PM LEAD MANUFACTURING ENGINEERING TECH): - continue CPAP Assessment & Plan (07/13/2019 12:32 PM LEAD MANUFACTURING ENGINEERING TECH): - continue CPAP Assessment & Plan (07/12/2019 11:58 AM LEAD MANUFACTURING ENGINEERING TECH): - continue CPAP Assessment & Plan (07/11/2019 9:41 PM LEAD MANUFACTURING ENGINEERING TECH): - Continue CPAP Class 2 severe obesity due t o excess calories with serious comorbidity and body mass index (BMI) of 37.0 to 37.9 in adult 04/09/2017 Assessment & Plan (2024 2:58 PM LEAD MANUFACTURING ENGINEERING TECH): Chronic, worsening Discussed about healthy lifestyle habits advise to work on healthy diet, avoid processed foods , increase vegetables and protein and cut back on carb portions and also avoid fruit juices and regular soda and desserts physical activity as recommend by cardiology Assessment & Plan (05/19/2023 12:40 PM CDT): Chronic, slowly improving , above goal Discussed about healthy lifestyle habits advise to work on healthy diet, avoid processed foods , increase vegetables and protein and cut back on carb portions and also avoid fruit juices and regular soda and desserts Increase physical activity , recommend at least 150 min of aerobic activity per week and include resistance training 2 x weekly Assessment & Plan (04/20/2021 3:17 PM CDT): Chronic, worsening Discussed about healthy lifestyle habits advise to work on healthy diet, avoid processed foods , increase vegetables and protein and cut back on carb portions and also avoid fruit juices and regular soda and desserts Increase physical activity , recommend at least 150 min of aerobic activity per week and include resistance training 2 x weekly Assessment & Plan (11/17/2020 3:26 PM CDT): Not compliant with diet or exercise. Importance of following diet and exercising discussed. Assessment & Plan (04/04/2020 12:38 PM CDT): Chronic, worsening Discussed about healthy lifestyle habits advise to work on healthy diet, avoid processed foods , increase vegetables and protein and cut back on carb portions and also avoid fruit juices and regular soda and desserts Increase physical activity , recommend at least 150 min of aerobic activity per week and include resistance training 2 x weekly Assessment & Plan (12/28/2019 9:45 PM CDT): Chronic, unchanged Discussed about healthy lifestyle habits advise to work on healthy diet, avoid processed foods , increase vegetables and protein and cut back on carb portions and also avoid fruit juices and regular soda and desserts Increase physical activity , recommend at least 150 min of aerobic activity per week and include resistance training 2 x weekly Assessment & Plan (09/22/2019 9:05 AM LEAD MANUFACTURING ENGINEERING TECH): Chronic, worsening Discussed about healthy lifestyle habits advise to work on healthy diet, avoid processed foods , increase vegetables and protein and cut back on carb portions and also avoid fruit juices and regular soda and desserts Increase physical activity , recommend at least 150 min of aerobic activity per week and include resistance training 2 x weekly Assessment & Plan (06/15/2019 10:19 PM LEAD MANUFACTURING ENGINEERING TECH): Chronic, worsening Discussed about healthy lifestyle habits advise to work on healthy diet, avoid processed foods , increase vegetables and protein and cut back on carb portions and also avoid fruit juices and regular soda and desserts Increase physical activity , recommend at least 150 min of aerobic activity per week and include resistance training 2 x weekly Assessment & Plan (02/23/2019 11:37 AM CDT): Obesity is unchanged. Discussed the patient's BMI. The BMI is above average; BMI management plan is completed. General weight loss/lifestyle modification strategies discussed (elicit support from others; identify saboteurs; non-food rewards, etc). Behavioral treatment: stress management. Diet interventions: moderate (500 kCal/d) deficit diet. Informal exercise measures discussed, e.g. taking stairs instead of elevator. Regular aerobic exercise program discussed. Assessment & Plan (11/17/2018 12:53 PM CDT): Obesity is improving with lifestyle modifications. Discussed the patient's BMI. The BMI is above average; BMI management plan is completed. General weight loss/lifestyle modification strategies discussed (elicit support from others; identify saboteurs; non-food rewards, etc). Behavioral treatment: stress management. Diet interventions: moderate (500 kCal/d) deficit diet. Informal exercise measures discussed, e.g. taking stairs instead of elevator. Regular aerobic exercise program discussed. Assessment & Plan (08/04/2018 10:11 PM LEAD MANUFACTURING ENGINEERING TECH): Obesity is improving with lifestyle modifications. Discussed the patient's BMI. The BMI is above average; BMI management plan is completed. General weight loss/lifestyle modification strategies discussed (elicit support from others; identify saboteurs; non-food rewards, etc). Behavioral treatment: stress management. Diet interventions: moderate (500 kCal/d) deficit diet. Informal exercise measures discussed, e.g. taking stairs instead of elevator. Regular aerobic exercise program discussed. Assessment & Plan (04/21/2018 10:50 AM CDT): Obesity is unchanged. Discussed the patient's BMI. The BMI is above average; BMI management plan is completed. General weight loss/lifestyle modification strategies discussed (elicit support from others; identify saboteurs; non-food rewards, etc). Behavioral treatment: stress management. Diet interventions: moderate (500 kCal/d) deficit diet. Informal exercise measures discussed, e.g. taking stairs instead of elevator. Regular aerobic exercise program discussed. Assessment & Plan (02/24/2018 4:24 PM CDT): Obesity is unchanged. Discussed the patient's BMI. The BMI is above average; BMI management plan is completed. General weight loss/lifestyle modification strategies discussed (elicit support from others; identify saboteurs; non-food rewards, etc). Behavioral treatment: stress management. Diet interventions: moderate (500 kCal/d) deficit diet. Informal exercise measures discussed, e.g. taking stairs instead of elevator. Regular aerobic exercise program discussed. Assessment & Plan (01/13/2018 1:22 PM CDT): Obesity is worsening. Discussed the patient's BMI. The BMI is above average; BMI management plan is completed. General weight loss/lifestyle modification strategies discussed (elicit support from others; identify saboteurs; non-food rewards, etc). Behavioral treatment: stress management. Diet interventions: moderate (500 kCal/d) deficit diet. Informal exercise measures discussed, e.g. taking stairs instead of elevator. Regular aerobic exercise program discussed. Assessment & Plan (09/23/2017 4:55 PM LEAD MANUFACTURING ENGINEERING TECH): Obesity is unchanged.as per pt. But scale show 10 lbs less than last time Discussed the patient's BMI. The BMI is above average; BMI management plan is completed. General weight loss/lifestyle modification strategies discussed (elicit support from others; identify saboteurs; non-food rewards, etc). Behavioral treatment: stress management. Diet interventions: moderate (500 kCal/d) deficit diet. Informal exercise measures discussed, e.g. taking stairs instead of elevator. Regular aerobic exercise program discussed. Assessment & Plan (07/03/2017 8:23 AM LEAD MANUFACTURING ENGINEERING TECH): Obesity is unchanged. Discussed the patient's BMI. The BMI is above average; BMI management plan is completed. General weight loss/lifestyle modification strategies discussed (elicit support from others; identify saboteurs; non-food rewards, etc). Behavioral treatment: stress management. Diet interventions: moderate (500 kCal/d) deficit diet. Informal exercise measures discussed, e.g. taking stairs instead of elevator. Regular aerobic exercise program discussed. Assessment & Plan (04/22/2017 11:47 AM CDT): Obesity is unchanged. Discussed the patient's BMI. The BMI is above average; BMI management plan is completed. General weight loss/lifestyle modification strategies discussed (elicit support from others; identify saboteurs; non-food rewards, etc). Behavioral treatment: stress management. Diet interventions: moderate (500 kCal/d) deficit diet. Informal exercise measures discussed, e.g. taking stairs instead of elevator. Regular aerobic exercise program discussed. Assessment & Plan (04/14/2017 5:46 PM CDT): Obesity is newly identified. Discussed the patient's BMI. The BMI is above average; BMI management plan is completed. General weight loss/lifestyle modification strategies discussed (elicit support from others; identify saboteurs; non-food rewards, etc). Behavioral treatment: stress management. Diet interventions: moderate (500 kCal/d) deficit diet. Informal exercise measures discussed, e.g. taking stairs instead of elevator. Regular aerobic exercise program discussed. Type 2 diabetes mellitus wit h hyperglycemia, with long-term current use of insulin 04/09/2017 Assessment & Plan (10/14/2024 12:12 PM LEAD MANUFACTURING ENGINEERING TECH): Accuchecks, insulin Assessment & Plan (10/07/2024 3:43 PM LEAD MANUFACTURING ENGINEERING TECH): Accuchecks, insulin Assessment & Plan (2024 3:07 PM LEAD MANUFACTURING ENGINEERING TECH): Chronic, uncontrolled, worsening A1c 8.7 % Reviewed freestyle Bonita download Noted postprandial hyperglycemia Avg glucose - 213 Target BS 32 % High = 38 % Very high - 30 % Low - 0 % Counseled on diet and exercise Work on pain management Advised patient to avoid unhealthy snacking Continue below medication plan Tresiba 50 units SQ daily in am Start Ozempic, 0.25 mg weekly for 2 weeks, then increase and continue with 0.5 mg weekly. ( Gave samples ) If you have severe nausea, vomiting , abdominal pain and/or diarrhea, stop the medication and call the office. Increase Novolog 16 units TID with meals + below correctional scale 151 - 200 + 2 units 201 - 250 + 4 units 251 - 300 + 6 units 301 - 350 + 8 units Over 351 + 10 units Recommend to make an eye exam appointment as soon as possible Daily foot care Follow-up in 3 months Assessment & Plan (11/11/2023 12:43 PM CDT): Chronic, uncontrolled, worsening A1c 7.7% Reviewed freestyle Bonita download Noted postprandial hyperglycemia Counseled on diet and exercise Work on pain management Advised patient to avoid unhealthy snacking Continue current dose of insulin regimen Recommend to make an eye exam appointment as soon as possible Daily foot care Follow-up in 6 months Assessment & Plan (09/03/2023 12:49 PM LEAD MANUFACTURING ENGINEERING TECH): Chronic problem. Greatly improved A1c from 10.2% 05/2023 to now 7.0%. great improvement once he started using GOLO as seen on TV. Current medications: Tresiba 30-35 units daily Novolog 2-6 units 3 times daily with meals, occasionally does not take any insulin. DM Eye exam 2022 (letter to [facility] to get report). UTD on labs. Discussed with Ranjeet Morejon: Strive for regular exercise (30min most days) and diet (get at least 4-5 servings of fruit and veggies daily, avoid processed foods, increase lean protein intake and decrease carb portions as well as fruit juices, regular soda & desserts). Watch carbs and simple sugars. Check the blood sugar: freestyle bonita. Check the feet daily for skin breakdown and infection. Assessment & Plan (05/13/2023 4:49 PM CDT): Chronic, uncontrolled, worsening A1c 10.6% - poor lifestyle habits, progressive weight gain High insulin resistance Patient cannot afford S GLT 2 inhibitors or GLP 1 agonist - advised to stop glimepiride - advised below insulin regimen Tresiba 60 units daily Novolog 20 units three times with meals If blood sugar is between 151-200, add 2 units. If blood sugar is between 201-250, add 4 units. If blood sugar is between 251-300, add 6 units. If blood sugar is between 301-350, add 8 units. If blood sugar is between >351, take 10 units. Start Ozempic 0.25 mg SQ weekly for 2 weeks than increase to 0.5 mg SQ weekly ( gave samples) ( in future plan to change Tresiba to soliqua , if when we cannot continue on ozempic samples ) - advised to make an eye exam appointment as soon as Assessment & Plan (01/31/2023 10:54 AM CDT): Chronic problem, uncontrolled. A1c was 9.8% and now 9.6%. Current medications: Glimepiride 2mg before breakfast & dinner. Tresiba 55-60 units daily Novolog 18 units with breakfast & lunch, 24-28 units with dinner plus: If blood sugar is between 151-200, add 2 units. If blood sugar is between 201-250, add 4 units. If blood sugar is between 251-300, add 6 units. If blood sugar is between 301-350, add 8 units. If blood sugar is between >351, take 10 units. DM eye exam 2021--letter sent to get copy from [facility]. Will update labs today. Does not mychart. Verified phone #/address to contact re: results. Stressed need to watch intake & increase activity as tolerated. Strive for regular exercise (30min most days) and diet (get at least 4-5 servings of fruit and veggies daily, avoid processed foods, increase lean protein intake and decrease carb portions as well as fruit juices, regular soda & desserts). Watch carbs and simple sugars. Check the feet daily for skin breakdown and infection. For shoulder pain/steroid use: increase tresiba 5-10 units every morning x 5 days. Increase novolog 5 units (baseline) with each meal. Will do this change on the day you start your steroid. Continue x5 days. Will update labs today. Does not mychart. Verified phone #/address to contact re: results. Assessment & Plan (10/15/2022 4:02 PM LEAD MANUFACTURING ENGINEERING TECH): Diabetes , uncontrolled , worsening A1c 9.8 % Advised patient to portion control on carbs also increase physical activity and include resistance training Work On fat loss Start ozempic 0.25 mg SQ weekly for 2 weeks than increase to 0.5 mg SQ weekly ( gave sample pen and sent in script and also gave pt assistance forms ) Increase Tresiba to 55-60 units Sq daily - Novolog 18 units With breakfast and lunch and 24-28 units with dinner + below correctional scale 151 - 200 + 2 units 201 -250 + 4 units 251 - 300 + 6 units 301 - 350 + 8 units Over 351 + 10 units Advised to increase physical activity as tolerated keep working on the dietary Habits Follow-up in 3 months Reminded to bring in blood sugar diary at next visit. Dietary recommendations for ADA diet. Regular aerobic exercise. Discussed ways to avoid symptomatic hypoglycemia. Discussed sick day management. Discussed foot care. Reminded to get yearly retinal exam. Medication changes per orders. Diabetes will be reassessed in 3 months. Assessment & Plan (05/24/2022 8:51 AM CDT): Chronic problem, not at goal. Adjust insulin doses per below. I also asked him to check into cost of different SGLT2i (he does not want me to send in rx, prefers to call). Discussed cardiorenal benefits. Let us know if persistently high sugars. Right now while you're dealing with cellulitis/ high sugars: Increase Tresiba to 60 units at night. Change Novolog to the following dose before meals: If sugar is <150 take 30 units If sugar is 150-200 take 32 units If sugar is 200-250 take 34 units If sugar is >300 take 36 units Once you are past the cellulitis, lower Tresiba to 50 units at night. And change Novolog to: If sugar is <150 take 25 units If sugar is 150-200 take 28 units If sugar is 200-250 take 30 units If sugar is >300 take 32 units Assessment & Plan (07/11/2019 9:40 PM LEAD MANUFACTURING ENGINEERING TECH): - Continue home insulin, accuchecks Assessment & Plan (06/15/2019 10:21 PM LEAD MANUFACTURING ENGINEERING TECH): Diabetes is worsening, Poor pt compliance to diet , and stressors A1c 8.3 % Advised patient to portion control on carbs also increase physical activity and Work On weight loss Reviewed blood sugar log Gives Soliqua samples and advised to increase Soliqua to 40 units in the morning Continue current dose of NovoLog ( educated on how to adjust his dose based on size of the meal) Recommend to send blood sugar log in the next 2-3 weeks Strongly advise to make an eye doctor appointment as soon as possible Advised to increase physical activity as tolerated keep working on the dietary Habits Strongly advised to make an eye doctor appointment as soon as possible Follow-up in 3 months Reminded to bring in blood sugar diary at next visit. Dietary recommendations for ADA diet. Regular aerobic exercise. Discussed ways to avoid symptomatic hypoglycemia. Discussed sick day management. Discussed foot care. Reminded to get yearly retinal exam. Medication changes per orders. Diabetes will be reassessed in 3 months. Assessment & Plan (02/23/2019 11:36 AM CDT): Diabetes is worsening A1c 7.4 Advised patient to portion control on carbs also increase physical activity and work On weight loss Reviewed blood sugar log Gives Soliqua samples and advised to increase Soliqua to 34 units in the morning Continue current dose of NovoLog Recommend to send blood sugar log in the next 2-3 weeks Strongly advise to make an eye doctor appointment as soon as possible Advised to increase physical activity as tolerated keep working on the dietary Habits Strongly advised to make an eye doctor appointment as soon as possible Follow-up in 3 months Reminded to bring in blood sugar diary at next visit. Dietary recommendations for ADA diet. Regular aerobic exercise. Discussed ways to avoid symptomatic hypoglycemia. Discussed sick day management. Discussed foot care. Reminded to get yearly retinal exam. Medication changes per orders. Diabetes will be reassessed in 3 months. Assessment & Plan (11/17/2018 12:52 PM CDT): Diabetes is improving with treatment. And lifestyle modifications A1c 6.7 Patient on low carb diet, tolerating well, intentional weight loss Reviewed blood sugar log Advised to start taking Soliqua 30 units in the morning instead of night Advised to decrease NovoLog to 10 units with each meal Recommend to send blood sugar log in the next 2-3 weeks Strongly advise to make an eye doctor appointment as soon as possible Advised to increase physical activity as tolerated keep working on the dietary habits Follow-up in 3 months Reminded to bring in blood sugar diary at next visit. Dietary recommendations for ADA diet. Regular aerobic exercise. Discussed ways to avoid symptomatic hypoglycemia. Discussed sick day management. Discussed foot care. Reminded to get yearly retinal exam. Medication changes per orders. Diabetes will be reassessed in 3 months. Assessment & Plan (09/15/2018 10:00 AM LEAD MANUFACTURING ENGINEERING TECH): Reviewed concept of continuous glucose monitor and insulin pump. Dexcom CGM demonstrated as well as Medtronic 670 G, T Slim and Omni pod pumps. Instructed on carb counting and label reading. He is to begin to practice determining the amount of carb she is eating. Provided with several written resources for this as well as apps. Would be good candidate especially for CGM. Pt has many concepts regarding diet and BG. CGM would allow more immediate evaluation of choices. He is considering both pump and CGM. Will send in BG log to show qid testing so that CGM can be ordered. Face to face time = 60 minutes Greater than 50% of visit was spent counseling pt. Counseling consisted of Assessment & Plan (08/04/2018 10:09 PM LEAD MANUFACTURING ENGINEERING TECH): Diabetes is unchanged. HbA1c - 8.5 % Very poor pt compliance to diet and exercise Strongly advised pt to work on his diet and do portion controlled healthy choices Advised to increase physical activity continue current medications Continue current treatment regimen. Reminded to bring in blood sugar diary at next visit. Dietary recommendations for ADA diet. Regular aerobic exercise. Discussed ways to avoid symptomatic hypoglycemia. Discussed sick day management. Discussed foot care. Reminded to get yearly retinal exam. Diabetes will be reassessed in 4 months . Assessment & Plan (04/21/2018 10:49 AM CDT): Diabetes is improving with treatment. A1c - 8.5 5 - reviewed SB log - advise pt to decrease Tresiba to 40 units SQ daily - Novolog 15-20 units TID with meals - Restart trulicity 1.5 mg SQ weekly - advise to work on portion controlled diet and start walking 20 -30 min every day - advise to check BS 3-4 x daily and send in BS log each month - pt. Was given insulin pen , vials an trulicity samples today - advise to get fasting lab work Reminded to bring in blood sugar diary at next visit. Dietary recommendations for ADA diet. Regular aerobic exercise. Discussed ways to avoid symptomatic hypoglycemia. Discussed sick day management. Discussed foot care. Reminded to get yearly retinal exam. Medication changes per orders. Diabetes will be reassessed in 3 months. Assessment & Plan (02/24/2018 4:17 PM CDT): Diabetes is improving with treatment. - pt. Forgot to bring in BS log , but as per pt. His BS are improving significnatly since last visit , denies hypoglycemia - unfortunately pt insurance does not cover insulin , pt. Has been on samples - gave Tresiba , Trulicity and Fiasp samples - also gave Soliqua pen samples - explained pt. That when he is doing trulicity 0.75 mg SQ weekly, take Tresiba ( long acting insulin ) 50 units SQ daily and Novolog or Fiasp insulin with meals - once off Trulicity , pt. Should be holing off tresiba and start taking Soliqua 60 units SQ daily in am and take Novolog or Fiasp with meals - advised to call us if any questions or concerns or confusion - instructions clearly written down and gave to pt. - follow up in 2 months and advised to bring in BS log with him Reminded to bring in blood sugar diary at next visit. Dietary recommendations for ADA diet. Regular aerobic exercise. Discussed ways to avoid symptomatic hypoglycemia. Discussed sick day management. Discussed foot care. Reminded to get yearly retinal exam. Diabetes will be reassessed in 2 months . Assessment & Plan (01/13/2018 1:26 PM CDT): Diabetes is worsening. - A1c today - 9.0 % - advise to keeping taking Lantus/ Basaglar 60 units SQ daily at bedtime - advise to keep taking Novolog 20-30 units TID with meals -started on GLP-1 agonists - Trulicity 0.75 mg SQ weekly - gave samples - pt. Cannot affors insulin - due to possibel high deductible - advise to call his insurance to find out his deductable - also advised pt to work on diet and cut back on portions and cut back on unhealthy carbs and advised to increase physical activity And work on healthy weight loss - advise to check BS 4 x daily and follow up in 6 weeks with BS log SR Reminded to bring in blood sugar diary at next visit. Dietary recommendations for ADA diet. Regular aerobic exercise. Discussed ways to avoid symptomatic hypoglycemia. Discussed sick day management. Discussed foot care. Reminded to get yearly retinal exam. Medication changes per orders. Diabetes will be reassessed in 6 weeks . Assessment & Plan (09/23/2017 4:54 PM LEAD MANU[employer]INEERING TECH): A1c today - - 9.0 % From last time 8.4 % - advised to increase Lantus to 60 units SQ daily at bedtime - Continue Humalog 15-25 units TID with meals Diabetes is worsening . Reminded to bring in blood sugar diary at next visit. Dietary recommendations for ADA diet. Regular aerobic exercise. Discussed ways to avoid symptomatic hypoglycemia. Discussed sick day management. Discussed foot care. Reminded to get yearly retinal exam. Medication changes per orders. Diabetes will be reassessed in 3 months. Assessment & Plan (07/03/2017 8:27 AM LEAD MANUFACT[employer]ING [employer]INEERING TECH): A1c today - 8.4 % , improving 04/08/2017 - 13.0 % - advised to decrease Lantus to 50 units SQ daily at bedtime - Continue Humalog 25 units TID with meals Diabetes is improving with treatment. Reminded to bring in blood sugar diary at next visit. Dietary recommendations for ADA diet. Regular aerobic exercise. Discussed ways to avoid symptomatic hypoglycemia. Discussed sick day management. Discussed foot care. Reminded to get yearly retinal exam. Medication changes per orders. Diabetes will be reassessed in 3 months. Assessment & Plan (04/22/2017 11:46 AM CDT): Lab Results Component Value Date HGBA1C 13.0 04/08/2017 - uncontrolled, very poor lifestyle habits - discussed about improving lifestyle habits , healthy , carb controlled diet, advised to increase Physical activity and recommend weight loss - advise to increase Taking Lantus - 60 units SQ daily at bedtime - advised to take Novolog 15- 25 units TID with meals ( based on carbs or meal size intake ) - advise to keep checking blood sugars - before each meals - advise to make an eye doctor appointment as soon as possible - daily foot care - follow up in Jun 2017 Diabetes is improving Reminded to bring in blood sugar diary at next visit. Dietary recommendations for ADA diet. Regular aerobic exercise. Discussed ways to avoid symptomatic hypoglycemia. Discussed sick day management. Discussed foot care. Reminded to get yearly retinal exam. Medication changes per orders. Diabetes will be reassessed in 2 months Assessment & Plan (04/14/2017 5:59 PM CDT): Lab Results Component Value Date HGBA1C 13.0 04/08/2017 - uncontrolled, very poor lifestyle habits - only on Prandial insulin , not on basal insulin - discussed about improving lifestyle habits , healthy , carb controlled diet, advised to increase Physical activity and recommend weight loss - advise to start Taking Lantus - 50 units SQ daily at bedtime - start Novolog 25 units TID with meals - advise to start checking blood sugars - before each meals - advise to make an eye doctor appointment as soon as possible - daily foot care - follow up in 2 weeks Diabetes is worsening. Reminded to bring in blood sugar diary at next visit. Dietary recommendations for ADA diet. Regular aerobic exercise. Discussed ways to avoid symptomatic hypoglycemia. Discussed sick day management. Discussed foot care. Reminded to get yearly retinal exam. Medication changes per orders. Diabetes will be reassessed in 2 weeks. Hypothyroidism, unspecified 04/09/2017 Assessment & Plan (10/22/2024 1:55 PM CDT): Continue home synthroid Assessment & Plan (10/14/2024 12:13 PM LEAD MANU[employer]ING [employer]ERING TECH): Continue levothyroxine Assessment & Plan (10/07/2024 3:42 PM LEAD MANUFA[employer]ING ENGINEERING TECH): Continue levothyroxine Assessment & Plan (2024 2:57 PM LEAD MANUFA[employer]ING [employer]INEERING TECH): Chronic, Stable Advise to continue Levothyroxine 50 mcg oral daily Last TSH 11/2023 WNL Instructions for taking levothyroxine Brand name is preferred Take thyroid pill all by itself Take thyroid pill one hour before food or 2 to 3 hours after food Heat, humidity, and direct sunlight will cause a loss of potency Never store thyroid pill in the bathroom The medication should be taken daily. If one or more pills are missing in a week, they can be taken all together at once, making sure at the end of the week, 7 tabs have been taken. Assessment & Plan (11/11/2023 12:42 PM CDT): Advise to continue Levothyroxine 50 mcg oral daily Last TSH 08/2023 WNL Recheck TSH today and pt progressively losing weight, he might need adjustment on his dose if needed Instructions for taking levothyroxine Brand name is preferred Take thyroid pill all by itself Take thyroid pill one hour before food or 2 to 3 hours after food Heat, humidity, and direct sunlight will cause a loss of potency Never store thyroid pill in the bathroom The medication should be taken daily. If one or more pills are missing in a week, they can be taken all together at once, making sure at the end of the week, 7 tabs have been taken. Assessment & Plan (09/03/2023 11:49 AM LEAD MANUFACT[employer]ING ENGINEERING TECH): Chronic problem. Clinicially euthyroid. Currently taking levothyroxine 50mcg daily. Will update TFTs today. Verified that he uses [facility]. Aware to check results/results letter in [facility]. Will contact by phone if needed. Assessment & Plan (05/19/2023 12:39 PM CDT): Advise to continue Levothyroxine 50 mcg oral daily Last TSH 08/2022 WNL Instructions for taking levothyroxine Brand name is preferred Take thyroid pill all by itself Take thyroid pill one hour before food or 2 to 3 hours after food Heat, humidity, and direct sunlight will cause a loss of potency Never store thyroid pill in the bathroom The medication should be taken daily. If one or more pills are missing in a week, they can be taken all together at once, making sure at the end of the week, 7 tabs have been taken. Assessment & Plan (01/31/2023 10:53 AM CDT): Chronic problem. Currently taking levothyroxine 50mcg daily. Had TFTs updated 08/2022. No changes at this time. Assessment & Plan (10/15/2022 4:00 PM LEAD [employer]UFA[employer]ING [employer]INEERING TECH): Advise to continue Levothyroxine 50 mcg oral daily Recent TSH WNL Instructions for taking levothyroxine Brand name is preferred Take thyroid pill all by itself Take thyroid pill one hour before food or 2 to 3 hours after food Heat, humidity, and direct sunlight will cause a loss of potency Never store thyroid pill in the bathroom The medication should be taken daily. If one or more pills are missing in a week, they can be taken all together at once, making sure at the end of the week, 7 tabs have been taken. Assessment & Plan (12/28/2021 11:33 AM CDT): Clinically and biochemically euthyroid. No medication changes. Assessment & Plan (06/29/2021 11:00 AM LEAD [employer]UFACT[employer]ING ENGINEERING TECH): - Continue supplementation with home levothyroxine 50 mcg daily Assessment & Plan (06/28/2021 12:17 PM LEAD MANUFA[employer]ING ENGINEERING TECH): - Continue supplementation with home levothyroxine 50 mcg daily Assessment & Plan (04/20/2021 3:16 PM CDT): Advise to continue Levothyroxine 50 mcg oral daily Recheck TSH Instructions for taking levothyroxine Brand name is preferred Take thyroid pill all by itself Take thyroid pill one hour before food or 2 to 3 hours after food Heat, humidity, and direct sunlight will cause a loss of potency Never store thyroid pill in the bathroom The medication should be taken daily. If one or more pills are missing in a week, they can be taken all together at once, making sure at the end of the week, 7 tabs have been taken. Assessment & Plan (02/24/2021 1:06 PM CDT): - Continue home levothyroxine Assessment & Plan (02/23/2021 7:18 AM CDT): - Continue home levothyroxine Assessment & Plan (02/23/2021 7:12 AM CDT): - Continue home levothyroxine Assessment & Plan (07/25/2020 12:59 PM LEAD [employer]UFACT[employer]ING ENGINEERING TECH): Advise to continue Levothyroxine 50 mcg oral daily Recent TSH 02/2020 WNL Instructions for taking levothyroxine Brand name is preferred Take thyroid pill all by itself Take thyroid pill one hour before food or 2 to 3 hours after food Heat, humidity, and direct sunlight will cause a loss of potency Never store thyroid pill in the bathroom The medication should be taken daily. If one or more pills are missing in a week, they can be taken all together at once, making sure at the end of the week, 7 tabs have been taken. Assessment & Plan (04/04/2020 12:38 PM CDT): Advise to continue Levothyroxine 50 mcg oral daily Recent TSH 02/2020 WNL Instructions for taking levothyroxine Brand name is preferred Take thyroid pill all by itself Take thyroid pill one hour before food or 2 to 3 hours after food Heat, humidity, and direct sunlight will cause a loss of potency Never store thyroid pill in the bathroom The medication should be taken daily. If one or more pills are missing in a week, they can be taken all together at once, making sure at the end of the week, 7 tabs have been taken. Assessment & Plan (12/28/2019 9:45 PM CDT): Advise to continue Levothyroxine 50 mcg oral daily Recent TSH 09/2019 WNL Instructions for taking levothyroxine Brand name is preferred Take thyroid pill all by itself Take thyroid pill one hour before food or 2 to 3 hours after food Heat, humidity, and direct sunlight will cause a loss of potency Never store thyroid pill in the bathroom The medication should be taken daily. If one or more pills are missing in a week, they can be taken all together at once, making sure at the end of the week, 7 tabs have been taken. Assessment & Plan (09/22/2019 9:06 AM LEAD MANUFACT[employer]ING [employer]INEERING TECH): Advise to continue Levothyroxine 50 mcg oral daily Recheck TSH today, based on that further plans Instructions for taking levothyroxine Brand name is preferred Take thyroid pill all by itself Take thyroid pill one hour before food or 2 to 3 hours after food Heat, humidity, and direct sunlight will cause a loss of potency Never store thyroid pill in the bathroom The medication should be taken daily. If one or more pills are missing in a week, they can be taken all together at once, making sure at the end of the week, 7 tabs have been taken. Assessment & Plan (06/15/2019 10:17 PM LEAD MANUFA[employer]INEERING TECH): Advise to continue Levothyroxine 50 mcg oral daily Recheck TSH today, based on that further plans Instructions for taking levothyroxine Brand name is preferred Take thyroid pill all by itself Take thyroid pill one hour before food or 2 to 3 hours after food Heat, humidity, and direct sunlight will cause a loss of potency Never store thyroid pill in the bathroom The medication should be taken daily. If one or more pills are missing in a week, they can be taken all together at once, making sure at the end of the week, 7 tabs have been taken. Assessment & Plan (02/23/2019 11:36 AM CDT): Advise to continue Levothyroxine 50 mcg oral daily Last TSH - 05/09/2018 - WNL Instructions for taking levothyroxine Brand name is preferred Take thyroid pill all by itself Take thyroid pill one hour before food or 2 to 3 hours after food Heat, humidity, and direct sunlight will cause a loss of potency Never store thyroid pill in the bathroom The medication should be taken daily. If one or more pills are missing in a week, they can be taken all together at once, making sure at the end of the week, 7 tabs have been taken. Assessment & Plan (11/17/2018 12:53 PM CDT): Advise to continue Levothyroxine 50 mcg oral daily Last TSH - 05/09/2018 - WNL Instructions for taking levothyroxine Brand name is preferred Take thyroid pill all by itself Take thyroid pill one hour before food or 2 to 3 hours after food Heat, humidity, and direct sunlight will cause a loss of potency Never store thyroid pill in the bathroom The medication should be taken daily. If one or more pills are missing in a week, they can be taken all together at once, making sure at the end of the week, 7 tabs have been taken. Assessment & Plan (08/04/2018 10:11 PM LEAD MANUFACT[employer]ING [employer]INEERING TECH): Advise to continue Levothyroxine 50 mcg oral daily Last TSH - 05/09/2018 - WNL Instructions for taking levothyroxine Brand name is preferred Take thyroid pill all by itself Take thyroid pill one hour before food or 2 to 3 hours after food Heat, humidity, and direct sunlight will cause a loss of potency Never store thyroid pill in the bathroom The medication should be taken daily. If one or more pills are missing in a week, they can be taken all together at once, making sure at the end of the week, 7 tabs have been taken. Assessment & Plan (04/21/2018 10:49 AM CDT): Advise to continue Levothyroxine 50 mcg oral daily Last TSH - 04/18/2017 - 2.3 ( WNL ) - recheck TSH soon Instructions for taking levothyroxine Brand name is preferred Take thyroid pill all by itself Take thyroid pill one hour before food or 2 to 3 hours after food Heat, humidity, and direct sunlight will cause a loss of potency Never store thyroid pill in the bathroom The medication should be taken daily. If one or more pills are missing in a week, they can be taken all together at once, making sure at the end of the week, 7 tabs have been taken. Assessment & Plan (02/24/2018 4:23 PM CDT): Advise to continue Levothyroxine 50 mcg oral daily Last TSH - 04/18/2017 - 2.3 ( WNL ) - recheck TSH Instructions for taking levothyroxine Brand name is preferred Take thyroid pill all by itself Take thyroid pill one hour before food or 2 to 3 hours after food Heat, humidity, and direct sunlight will cause a loss of potency Never store thyroid pill in the bathroom The medication should be taken daily. If one or more pills are missing in a week, they can be taken all together at once, making sure at the end of the week, 7 tabs have been taken. Assessment & Plan (01/13/2018 1:27 PM CDT): Advise to continue Levothyroxine 25 mcg oral daily Last TSH - 04/18/2017 - 2.3 ( WNL ) Instructions for taking levothyroxine Brand name is preferred Take thyroid pill all by itself Take thyroid pill one hour before food or 2 to 3 hours after food Heat, humidity, and direct sunlight will cause a loss of potency Never store thyroid pill in the bathroom The medication should be taken daily. If one or more pills are missing in a week, they can be taken all together at once, making sure at the end of the week, 7 tabs have been taken. Assessment & Plan (09/23/2017 4:55 PM LEAD MANUFACT[employer]ING [employer]INEERING TECH): Advise to continue Levothyroxine 25 mcg oral daily Last TSH - 04/18/2017 - 2.3 ( WNL ) Instructions for taking levothyroxine Brand name is preferred Take thyroid pill all by itself Take thyroid pill one hour before food or 2 to 3 hours after food Heat, humidity, and direct sunlight will cause a loss of potency Never store thyroid pill in the bathroom The medication should be taken daily. If one or more pills are missing in a week, they can be taken all together at once, making sure at the end of the week, 7 tabs have been taken. Assessment & Plan (07/03/2017 8:25 AM LEAD MANUFACT[employer]ING ENGINEERING TECH): Advise to continue Levothyroxine 25 mcg oral daily Last TSH - 04/18/2017 - 2.3 ( WNL ) Instructions for taking levothyroxine Brand name is preferred Take thyroid pill all by itself Take thyroid pill one hour before food or 2 to 3 hours after food Heat, humidity, and direct sunlight will cause a loss of potency Never store thyroid pill in the bathroom The medication should be taken daily. If one or more pills are missing in a week, they can be taken all together at once, making sure at the end of the week, 7 tabs have been taken. Assessment & Plan (04/22/2017 11:48 AM CDT): Advise to continue Levothyroxine 25 mcg oral daily Recent TSH - WNL Lab Results Component Value Date TSH 2.390 04/18/2017 Instructions for taking levothyroxine Brand name is preferred Take thyroid pill all by itself Take thyroid pill one hour before food or 2 to 3 hours after food Heat, humidity, and direct sunlight will cause a loss of potency Never store thyroid pill in the bathroom The medication should be taken daily. If one or more pills are missing in a week, they can be taken all together at once, making sure at the end of the week, 7 tabs have been taken. Assessment & Plan (04/14/2017 5:46 PM CDT): Advise to continue Levothyroxine 25 mcg oral daily Will recheck TSH Instructions for taking levothyroxine Brand name is preferred Take thyroid pill all by itself Take thyroid pill one hour before food or 2 to 3 hours after food Heat, humidity, and direct sunlight will cause a loss of potency Never store thyroid pill in the bathroom The medication should be taken daily. If one or more pills are missing in a week, they can be taken all together at once, making sure at the end of the week, 7 tabs have been taken. CVA (cerebral vascular accident) ([facility]) 04/09 Assessment & Plan (06/29/2021 11:09 AM LEAD MANUFACTURING ENGINEERING TECH): History of CVA in 2005 - Continue Aspirin and atorvastatin Assessment & Plan (06/28/2021 12:22 PM LEAD MANUFACT[employer]ING ENGINEERING TECH): History of CVA in 2005 - Continue Aspirin and atorvastatin Assessment & Plan (01/06/2020 5:27 AM CDT): Continue ASA and statin CAD S/P percutaneous coronary angioplasty 2016 Sleep apnea syndrome 12/01/2015 Diastolic heart failure ([facility]) 05/31/2015 Assessment & Plan (05/10/2023 1:17 PM CDT): Acute on Chronic grade II Diastolic Heart failure with an EF of 55-60% volume up on exam, we have been titrating his diuretics as an outpt. His weight is up per his report 8lbs at home. He is back to taking lasix 80 mg BID for five days. Then back to 40 mg BID with 40 mg PRN I have asked him to weight daily and take an additional lasix if his weight is up 2-3 lbs in 24-48 hours. Continue lisinopril 20 mg daily, decrease metoprolol to 25 mg daily for bradycardia, Norvasc 5 mg daily. Unfortunately SGLT2's were cost prohibitive. We will add aldactone 12.5 mg daily and get a BNP and BMP in 2 weeks. 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 We had lengthy conversation regarding dietary indiscretions and fluid management. Assessment & Plan (02/25/2023 3:34 PM CDT): Chronic Diastolic Heart failure with an EF of 55-60% at OSH February 2023. His weight was up 20 lbs upon admission per his report. He is back down to 287 lbs and his DW is 282 per his report. He is taking lasix 80 mg daily. I have asked him to weight daily and take an additional 40 mg in the afternoon if his weight goes up 2-3 lbs in 24-48 hours. Continue lisinopril 20 mg daily, metoprolol 50 mg xl daily. If BMP stable today, will add SGLT2 for HFpEF indication. Assessment & Plan (06/29/2021 11:00 AM LEAD MANUFACTURING ENGINEERING TECH): - No concern for volume overload or end organ hypoperfusion - Last TTE with EF of 55-60%, will repeat echo - Continue home Lasix - Strict Is&Os, monitor on tele, K>4, Mg>2 Assessment & Plan (06/28/2021 12:17 PM LEAD MANUFACTURING ENGINEERING TECH): - No concern for volume overload or end organ hypoperfusion - Last TTE with EF of 55-60%, will repeat echo - Continue home Lasix - Strict Is&Os, monitor on tele, K>4, Mg>2 Assessment & Plan (07/13/2019 2:36 PM LEAD MANUFACTURING ENGINEERING TECH): Chronic, stable -cont metoprolol and lisinopril Sinus bradycardia 05/31/2015 Assessment & Plan (05/10/2023 1:27 PM CDT): Decrease metoprolol to 25 mg xl daily. History of coronary artery bypass surgery 2014 Hypertension associated with diabetes 11/19/2014 Assessment & Plan (10/07/2024 3:43 PM LEAD MANUFACTURING ENGINEERING TECH): Goal SBP <160 and MAP >65 Assessment & Plan (2024 2:58 PM LEAD MANUFACTURING ENGINEERING TECH): Chronic, well controlled Continue Amlodipine, lisinopril Assessment & Plan (11/11/2023 12:40 PM CDT): Chronic, well controlled Continue Amlodipine, lisinopril Assessment & Plan (09/03/2023 11:49 AM LEAD MANUFACTURING ENGINEERING TECH): Chronic problem. Controlled on current lisinopril 20mg bid, metoprolol XL 50mg daily, amlodipine 5mg daily, lasix 40mg & Imdur 30mg daily No changes at this time. Assessment & Plan (05/19/2023 12:39 PM CDT): Chronic, well controlled Continue Amlodipine, lisinopril Assessment & Plan (01/31/2023 10:53 AM CDT): Chronic problem. Controlled on current lisinopril 20mg bid, metoprolol XL 50mg daily, amlodipine 5mg daily, lasix 40mg & Imdur 30mg daily No changes at this time. Will update labs today. Does not mychart. Verified phone #/address to contact re: results. Assessment & Plan (05/24/2022 8:30 AM CDT): Controlled on current medications, no changes. Assessment & Plan (04/20/2021 3:15 PM CDT): HTN, chronic, well controlled Assessment & Plan (11/17/2020 3:26 PM CDT): Controlled on current medications. Continue plan. Angina pectoris 06/22/2014 Shortness of breath 12/12/2012 Precordial pain 12/12/2012 T2DM (type 2 diabetes mellitus) 10/19/2010 Assessment & Plan (10/22/2024 1:55 PM CDT): Home regimen: insulin degludec 36 units qAM, insulin aspart 6-8 units TIDAC, semaglutide 0.5mg qweekly - Lantus 18 units qAM, Lispro 6u TID meals, SSI Assessment & Plan (12/28/2021 1:03 PM CDT): Chronic problem, not at goal. Sample given of Ozempic again and he can see if it helps, then will let us know and we can send in rx to see if covered. He should not leave insulin in the car as heat can affect efficacy. Increase Tresiba to 55 units. Continue Novolog 3 times a day before meals: If sugar is <150 take 25 units If sugar is 150-200 take 28 units If sugar is 200-250 take 30 units If sugar is >300 take 32 units If starts to have low sugars resume previous doses. Assessment & Plan (04/20/2021 3:17 PM CDT): Diabetes , uncontrolled , worsening A1c 8.5 % Advised patient to portion control on carbs also increase physical activity and include resistance training Work On fat loss Start ozempic 0.25 mg SQ weekly for 2 weeks than increase to 0.5 mg SQ weekly ( gave samples ) Increase Tresiba to 50 units Sq daily - Novolog 20 units three times with meals + below correctional scale 151 - 200 + 2 units 201 -250 + 4 units 251 - 300 + 6 units 301 - 350 + 8 units Over 351 + 10 units Advised to increase physical activity as tolerated keep working on the dietary Habits Follow-up in 3 months Reminded to bring in blood sugar diary at next visit. Dietary recommendations for ADA diet. Regular aerobic exercise. Discussed ways to avoid symptomatic hypoglycemia. Discussed sick day management. Discussed foot care. Reminded to get yearly retinal exam. Medication changes per orders. Diabetes will be reassessed in 3 months. Assessment & Plan (11/17/2020 3:29 PM CDT): A1c 9.2. Worsening. He is not taking his insulin appropriately due to the concepts he has about how he is seeing it work. Eating fast food. Education provided regarding diet, carbs, BG goals and how to take his bolus insulin. He is still reluctant to change his beliefs about how insulin works in his body. Recommend that he watch trend arrows more closely, especially pc. Increase Tresiba to 42 units and adjust to goal q 5 days of FBG in lower 100's. Schedule dilated eye exam Omnipod insulin pump discussed. He will be good candidate for integrated pump once available d/t medicare coverage and ability to use SML for meal. Keeping carb counting to minimum is more beneficial for him as he is not accurate with his assessment of his meals. Assessment & Plan (07/25/2020 1:04 PM LEAD MANUFACTURING ENGINEERING TECH): Diabetes , uncontrolled , worsening A1c 8.2 % Advised patient to portion control on carbs also increase physical activity and include resistance training Work On fat loss Once you are off lantus or Basaglar , Switch soliqua ( gave samples ) 30 units SQ daily in morning and increase by 5 units every week until your morning blood sugars less than 130 continue taking Novolog insulin with meals Continue current dose of NovoLog ( educated on how to adjust his dose based on size of the meal) - Novolog 24 units three times with meals + below correctional scale 151 - 200 + 2 units 201 -250 + 4 units 251 - 300 + 6 units 301 - 350 + 8 units Over 351 + 10 units advise to make an eye doctor appointment soon Advised to increase physical activity as tolerated keep working on the dietary Habits Advised pt to call his insurance to see if they cover Omnipod insulin pump and notify us Follow-up in 3 months Reminded to bring in blood sugar diary at next visit. Dietary recommendations for ADA diet. Regular aerobic exercise. Discussed ways to avoid symptomatic hypoglycemia. Discussed sick day management. Discussed foot care. Reminded to get yearly retinal exam. Medication changes per orders. Diabetes will be reassessed in 3 months. Assessment & Plan (04/04/2020 12:43 PM CDT): Diabetes , uncontrolled A1c 7.9 % Advised patient to portion control on carbs also increase physical activity and include resistance training Work On fat loss Adding GLP1 agonist and SGLT 2 inhibitors will be a good option for pt , but pt insurance do not cover and out of pocket cost are high Lantus Or Toujeo or Basaglar 50 units SQ daily ( pt on samples ) Continue current dose of NovoLog ( educated on how to adjust his dose based on size of the meal) - Novolog 24 units three times with meals + below correctional scale 151 - 200 + 2 units 201 -250 + 4 units 251 - 300 + 6 units 301 - 350 + 8 units Over 351 + 10 units advise to make an eye doctor appointment soon Advised to increase physical activity as tolerated keep working on the dietary Habits Follow-up in 3 months Reminded to bring in blood sugar diary at next visit. Dietary recommendations for ADA diet. Regular aerobic exercise. Discussed ways to avoid symptomatic hypoglycemia. Discussed sick day management. Discussed foot care. Reminded to get yearly retinal exam. Medication changes per orders. Diabetes will be reassessed in 3 months. Assessment & Plan (01/06/2020 5:27 AM CDT): Patient takes insulin glargine+lixisenatide (GLP-1 agonist) 50U daily. - will dose reduce to 18U nightly and 6U TID w/ meals Assessment & Plan (12/28/2019 9:44 PM CDT): Diabetes , uncontrolled A1c 7.8 % Advised patient to portion control on carbs also increase physical activity and include resistance training Work On fat loss Gives Soliqua samples and advised to increase Soliqua to 40 units in the morning ( once done with Soliqua , switch to Lantus 50 units SQ daily ) Continue current dose of NovoLog ( educated on how to adjust his dose based on size of the meal) Strongly advise to make an eye doctor appointment as scheduled Advised to increase physical activity as tolerated keep working on the dietary Habits Will check if pt can get pt. assistance for Lantus 50 units SQ daily Follow-up in 3 months Reminded to bring in blood sugar diary at next visit. Dietary recommendations for ADA diet. Regular aerobic exercise. Discussed ways to avoid symptomatic hypoglycemia. Discussed sick day management. Discussed foot care. Reminded to get yearly retinal exam. Medication changes per orders. Diabetes will be reassessed in 3 months. Assessment & Plan (09/22/2019 9:08 AM LEAD MANUFACTURING ENGINEERING TECH): Diabetes is improving slowly Poor pt compliance to diet And exercise, due to shoulder pain and stressors in life A1c 7.7 % Advised patient to portion control on carbs also increase physical activity and include resistance training Work On fat loss Reviewed blood sugar log Gives Soliqua samples and advised to increase Soliqua to 40 units in the morning Continue current dose of NovoLog ( educated on how to adjust his dose based on size of the meal) Strongly advise to make an eye doctor appointment as soon as possible Advised to increase physical activity as tolerated keep working on the dietary Habits Will obtain pt last eye exam copy Will check if pt can get pt. assistance for Lantus 40 units SQ daily Also check if pt can get on DEXCOM G 6 CGM Follow-up in 3 months Reminded to bring in blood sugar diary at next visit. Dietary recommendations for ADA diet. Regular aerobic exercise. Discussed ways to avoid symptomatic hypoglycemia. Discussed sick day management. Discussed foot care. Reminded to get yearly retinal exam. Medication changes per orders. Diabetes will be reassessed in 3 months. Assessment & Plan (07/13/2019 2:40 PM LEAD MANUFACTURING ENGINEERING TECH): Poorly controlled - A1c 8.4 - continue Lantus, Lispro with meals, sliding scale insulin - carbohydrate consistent diet Assessment & Plan (07/13/2019 12:30 PM LEAD MANUFACTURING ENGINEERING TECH): Poorly controlled - A1c 8.4 - continue Lantus, Lispro with meals, sliding scale insulin - carbohydrate consistent diet Assessment & Plan (07/12/2019 11:57 AM LEAD MANUFACTURING ENGINEERING TECH): Poorly controlled - A1c 8.4 - continue Lantus, Lispro with meals, sliding scale insulin - carbohydrate consistent diet Coronary arteriosclerosis in [place] artery 10/19 Assessment & Plan (02/24/2021 1:07 PM CDT): - has hx of CAD s/p CABG. Also had PCI last in 07/2019 - See elsewhere for chest discomfort management - Continue ASA and statin Assessment & Plan (02/23/2021 7:18 AM CDT): - CAD with CABG and PCI last in 07/2019 - See above for chest discomfort management - Continue ASA and statin Assessment & Plan (02/23/2021 7:08 AM CDT): - CAD with CABG and PCI last in 07/2019 - See above for chest discomfort management - Continue ASA and statin Resolved Problems Problem Noted Date Diagnosed Date Resolved Date Morbid (severe) obesity due to excess calories 12/28/2021 01/31/2023 Assessment & Plan (12/28/2021 1:00 PM CDT): Try Ozempic. Morbid obesity with BMI of 40.0-44.9, adult 12/28/2021 07/06/2024 Assessment & Plan (10/15/2022 4:00 PM LEAD MANUFACTURING ENGINEERING TECH): Counseled on diet and exercise Advise to avoid unhealthy snacking and work on exercise and stress management V-tach 02/23/2021 02/23/2021 Essential hypertension 02/23/202101/31 Assessment & Plan (06/29/2021 11:11 AM LEAD MANUFACTURING ENGINEERING TECH): - Continue home Metop, Lisinopril, Amlodipine, Furosemide, Hydralazine, Imdur - Low sodium diet Assessment & Plan (06/28/2021 12:25 PM LEAD MANUFACTURING ENGINEERING TECH): - Continue home Metop, Lisinopril, Amlodipine, Furosemide, Hydralazine, Imdur - Low sodium diet Assessment & Plan (02/26/2021 1:20 PM CDT): - Continue home meds Metop, Amlodipine, Hydralazine, ISMN. Held lisinopril and lasix on the backdrop of GUDELIA. Will resume lasix today. Assessment & Plan (02/23/2021 7:19 AM CDT): - Continue home meds Metop, Lisinopril, Amlodipine, Furosemide, Hydralazine, ISMN Assessment & Plan (02/23/2021 7:09 AM CDT): - Continue home meds Metop, Lisinopril, Amlodipine, Furosemide, Hydralazine, ISMN Obesity (BMI 30-39.9) 07/12/20192018 Assessment & Plan (07/12/2019 12:04 PM LEAD MANUFACTURING ENGINEERING TECH): - weight loss encouraged Mixed hyperlipidemia 04/09/2017 019 Assessment & Plan (07/11/2019 9:40 PM LEAD MANUFACTURING ENGINEERING TECH): - Continue Lipitor Assessment & Plan (06/15/2019 10:19 PM LEAD MANUFACTURING ENGINEERING TECH): On statin therapy Advised low fat/chol diet Advised to increase aerobic physical activity and work on weight loss Assessment & Plan (02/23/2019 11:37 AM CDT): On statin therapy Advised low fat/chol diet Advised to increase aerobic physical activity and work on weight loss Assessment & Plan (11/17/2018 12:53 PM CDT): On statin therapy Advised low fat/chol diet Advised to increase aerobic physical activity and work on weight loss Assessment & Plan (08/04/2018 10:11 PM LEAD MANUFACTURING ENGINEERING TECH): On statin therapy Advised low fat/chol diet Advised to increase aerobic physical activity and work on weight loss Assessment & Plan (04/21/2018 10:49 AM CDT): On statin therapy Advised low fat/chol diet Advised to increase aerobic physical activity and work on weight loss Assessment & Plan (02/24/2018 4:17 PM CDT): On statin therapy Advised low fat/chol diet Advised to increase aerobic physical activity and work on weight loss Assessment & Plan (01/13/2018 1:15 PM CDT): On statin therapy Advised low fat/chol diet Advised to increase aerobic physical activity and work on weight loss Assessment & Plan (09/23/2017 4:55 PM LEAD MANUFACTURING ENGINEERING TECH): On statin therapy Advised low fat/chol diet Advised to increase aerobic physical activity and work on weight loss Assessment & Plan (07/03/2017 8:25 AM LEAD MANUFACTURING ENGINEERING TECH): On statin therapy Advised low fat/chol diet Advised to increase aerobic physical activity and work on weight loss Assessment & Plan (04/14/2017 5:44 PM CDT): On statin therapy Diabetic polyneuropathy asso ciated with type 2 diabetes mellitus 04/09/2017 07/13/2019 Assessment & Plan (07/12/2019 12:05 PM LEAD MANUFACTURING ENGINEERING TECH): - continue gabapentin Assessment & Plan (07/11/2019 9:41 PM LEAD MANUFACTURING ENGINEERING TECH): - Continue gabapentin Assessment & Plan (06/15/2019 10:18 PM LEAD MANUFACTURING ENGINEERING TECH): Work on better glycemic control On gabapentin for symptomatic relief Assessment & Plan (01/13/2018 1:21 PM CDT): Work on better glycemic control Obesity 03/23/2014 01/31/2023 Encounters Date Type Department Care Team Description 07/30/2025 Telephone [facility] Cardiology [facility] [facility] 8th [place] [address] [place] [address] Jacob Purvis MD PhD 07/30/2025 Telephone [facility] Cardiology [facility] [facility] 8th [place] [address] [place] [address] Jacob Purvis MD PhD 07/05/2025 Telephone [facility] Cardiology [address] [place] [address] 8th [place] [address] [place] [address] Bernarda Mota 06/21/2025 Orders Only [facility] [address] [place] [address] Medicine [address] [place] [address] Beto Cobb DPM Chronic pain syndrome (Primary Dx) 06/16/2025 Telephone [facility] Diabetes and Endocrinology [address] [place] [phone] Lottie Herron MD patient request DMV form to be signed 06/16/2025 Telephone [facility] Cardiology [address] [facility] 8th [place] [address] [place] [phone] Jacob Purvis MD PhD 06/07/2025 Telephone [facility] Cardiology [address] [facility] 8th [place] [address] [place] [phone] Jacob Purvis MD PhD 05/27/2025 Telephone [facility] [address] [address] Lottie Herron MD [place] 05/24/2025 2:30 PM CDT Office Visit [facility] Diabetes and Endocrinology [address] [place] [phone] Lottie Herron MD Type 2 diabetes mellitus with hyperglycemia, with long-term current use of insulin (HCC) (Primary Dx); Hyperlipidemia associated with type 2 diabetes mellitus (HCC); Acquired hypothyroidism; Class 2 severe obesity due to excess calories with serious comorbidity and body mass index (BMI) of 36.0 to 36.9 in adult 05/12/2025 Telephone [facility] [address] [address] Lottie Herron MD Med Refill 05/11/2025 Telephone [facility] [address] [address] Lottie Herron MD Med Management ([place]) from Last 3 Months Immunizations Immunization Administration Dates Next Due Influenza, Quadrivalent, Hig h Dose, Preservative Free, Intrr 06/28/2021,06/28/2021(Deferred: - HOLDING FOR CLARIFICATIONS.WILL ADMINISTER LATER),05/29/2020 Influenza, Split 05/20/2013 Influenza, Trivalent, High D ose, Split, Preservative Free, Intramuscular 06/11/2019 Influenza, Trivalent, IM (MDV) 06/10/2014 Influenza, Trivalent, Preser vative Free, Intramuscular 05/31/2015 Influenza, Unspecified 06/02/2024,05/12/2019 Moderna SARS-CoV-2 Monovalen t Vaccination (12+ YRS) 10/13/2020,09/07/2020 Pneumococcal Conjugate PCV 13 06/11/2019 Tdap 09/22/2024,09/10/2017 Surgical History Surgery Date Site/Laterality Comments CORONARY ARTERY BYPASS GRAFT quadruple, 2009 EYE SURGERY left eye detached retina CORONARY ANGIOPLASTY WITH STENT PLACEMENT 05/05/2013 LEONOR to RCA CARDIAC CATHETERIZATION 06/12/2024 - 07/11/2024 CARDIAC CATHETERIZATION 10/14/2024 Chest/N/A Procedure: TAVR - PERCUTANEOUS FEMORAL [id number]; Surgeon: Neville Flower MD; Location: [facility]; Service: Cardiovascular; Laterality: N/A; Dr. Flower, IC. Second case, 0900 arrival. Medical devices from this surgery are in the Medical Devices section. CARDIAC ELECTROPHYSIOLOGY PROCEDURE 10/21/2024 N/A Procedure: IMPLANT DUAL CHAMBER PPM SYSTEM W/ DUAL ELECTRODES (GEN AND LEADS, NEW OR REPLACE) [id number]; Surgeon: Clarita Willard MD; Location: [facility]; Service: Cardiovascular; Laterality: N/A; Medical devices from this surgery are in the Medical Devices section. CARDIAC ELECTROPHYSIOLOGY PROCEDURE 10/21/2024 N/A Procedure: INSERT LV LEAD W PACEMAKER (PPM) OR IMPLANTABLE CARDIOVERTER-DEFIBRILLAT OR (ICD) PLACEMENT (+) 88659; Surgeon: Clarita Willard MD; Location: [facility]; Service: Cardiovascular; Laterality: N/A; Medical devices from this surgery are in the Medical Devices section. Medical History Medical History Date Comments Stroke (HCC) 2005 Hypertension Heart attack (HCC) 2012 Type 2 diabetes mellitus CAD (coronary artery disease) Cataracts, both eyes [place] (hard of hearing) Skin cancer Diabetic neuropathy (HCC) Skin cancer face Heart attack (HCC) Aortic stenosis Covid-19 02/23/2021 positive test Sleep apnea wears cpap Acute hypoxic respiratory failure (HCC) 5 Family History Medical History Relation Name Comments Diabetes Father Stomach cancer Father Hypertension Mother Hypertension Sister Anesthesia problems Neg Hx Malig Hyperthermia Neg Hx Pseudochol deficiency Neg Hx Relation Name Status Comments Father Mother Sister Social History Tobacco Use Types Packs/Day Years Used Date Smoking Tobacco: Never Smokeless Tobacco: Never Alcohol Use Standard Drinks/Week Comments No 0 (1 standard drink = 0.6 oz pur e alcohol) [facility] Utilities Answer Date Recorded In the past 12 months has th e electric, gas, oil, or water company threatened to shut off services in your home? No 10/20/2024 Social Connection and Isolation Panel Answer Date Recorded In a typical week, how many times do you talk on the phone with family, friends, or neighbors? More than three times a week 10/20/2024 How often do you get togethe r with friends or relatives? Twice a week 10/20/2024 How often do you attend chur ch or caodaism services? More than 4 times per year 10/20/2024 Do you belong to any clubs o r organizations such as hoahaoism groups, unions, fraternal or athletic groups, or school groups? Yes 10/20/2024 How often do you attend meet ings of the clubs or organizations you belong to? More than 4 times per year 10/20/2024 Are you , , di vorced, , never , or living with a partner? 10/20/2024 AUDIT-C Answer Date Recorded Q1: How often do you have a drink containing alcohol? Never 10/14/2024 Q2: How many drinks containi ng alcohol do you have on a typical day when you are drinking? Patient does not drink Q3: How often do you have si x or more drinks on one occasion? Never 10/14/2024 Overall Financial Resource Strain (CARDIA) Answe r Date Recorded How hard is it for you to pa y for the very basics like food, housing, medical care, and heating? Hard 10/20/2024 PHQ-2 Answer Date Recorded PHQ-2 Total Score (If total score is 3 or more points, staff should administer the PHQ-9) 0 10/20/2024 Hunger Vital Sign Answer Date Recorded Within the past 12 months, y ou worried that your food would run out before you got the money to buy more. Never true 10/21/19 25 Within the past 12 months, t he food you bought just didn't last and you didn't have money to get more. Never true 10/20/2024 PRAPARE - Transportation Answer Date Re corded In the past 12 months, has l ack of transportation kept you from medical appointments or from getting medications? No 10/10 In the past 12 months, has l ack of transportation kept you from meetings, work, or from getting things needed for daily living? No 10/20/2024 Housing Stability Vital Sign Answer Brandin e [...] place to sleep or slept in a skilled nursing (including now)? No 02/27/2021 Housing Stability Vital Sign Answer Brandin e Recorded In the last 12 months, was t here a time when you were not able to pay the mortgage or rent on time? No 10/20/2024 In the past 12 months, how m any times have you moved where you were living? 0 10/20/2024 At any time in the past 12 m [place], were you homeless or living in a skilled nursing (including now)? No 10/20/2024 Personal Safety Answer Date Recorded Have you ever been in or are you currently in a harmful physical or emotional relationship or is someone making you feel afraid or unsafe? Denies 10/18/2024 Sex and Gender Information Value Date Recorded Sex Assigned at Not on file Legal Sex Male 5:27 AM LEAD MANU[employer]ER[employer] Gender Identity Not on file Sexual Orientation Not on file Last Filed Vital Signs Vital Sign Reading Time Taken Comments Blood Pressure 110/70 05/24/2025 2:37 PM CDT Pulse 52 05/24/2025 2:37 PM CDT Temperature 36.6 C (97.9 F) 10/23/2024 1:29 PM CDT Respiratory Rate 16 01/08/2025 10:47 AM CDT Oxygen Saturation 95% 01/01/2025 9:48 AM CDT Inhaled Oxygen Concentration - - Weight 118 kg (260 lb 3.2 oz) 05/24/2025 2:37 PM CDT Height 177.8 cm (5' 10) 05/24/2025 2:37 PM CDT Body Mass Index 37.33 05/24/2025 2:37 PM CDT Plan of Treatment Health Maintenance Due Date Last Done Comments Colon Cancer Screening-Colonoscopy 1950 Hepatitis C Screening 1950 Hepatitis B Screening 1968 Zoster Vaccine (1 of 2) 2000 Well Visit 65+ 2015 Pneumococcal vaccine 65+ (2 of 2 - PPSV23, PCV20, or PCV21) 08/06/2019 06/11/2019 Covid-19 Vaccine (3 - 2024-2 6 season) 2025 10/13/2020, 09/07/2020 Influenza Vaccine (#1) 2025 , 06/28/2021, 05/29/2020, Additional history exists Dilated Eye Exam 06/16/2025 06/16/2024, , 05/19/2019, Additional history exists Foot Exam 07/06/2025 07/06/2024, 04/0 08/2023, 05/13/2023, Additional history exists Depression Screening 10/18/2025 10/18/2024, 11/11/2023, 04/20/2021, Additional history exists Fall Risk Assessment 10/23/2025 10/23/2024, 11/11/19 24 Hemoglobin A1C 11/22/2025 05/24/2025, 12/12, 10/14/2024, Additional history exists Albumin Creatinine Ratio, Urine 01/19/2026 01/19/2025, 11/11/2023, 01/31/2023, Additional history exists Lipid Panel 01/19/2026 01/19/2025, 04/0 08/2023, 01/31/2023, Additional history exists eGFR 01/19/2026 01/19/2025, 10/10, 10/22/2024, Additional history exists DTaP/Tdap/Td Vaccine (3 - Td or Tdap) 09/22/2034 09/22/2024, 09/10/2017 Medical Devices Implanted Type Area Tile Layer Supervisor Device Identifier Shelf Expiration Date Model / Serial / Lot TargetX Woodrow Angio-Seal Vip 6fr Closere Device [id number] - [id number] - [id number] Implanted:Qty: 1 on 10/14/2024 by Neville Flower MD at [facility] Collagen Left: Common Femoral Artery Soniqplay 04/29/2025 [id number] / [id number] / [id number] Medtronic Inc Capsurefix Novus 6.2fr 2mm 58cm Bipolar Screw In Implantable 5076-58 - [id number] - [id number] Implanted:Qty: 1 on 10/21/2024 by Clarita Willard MD at [facility] Lead Medtronic Inc 06/08/2026 5076-5 8 / [id number] / Medtronic Inc Capsurefix Novus 6.2fr 2mm 52cm Bipolar Screw In Implantable Latex Free 5076-52 - [id number] - [id number] Implanted:Qty: 1 on 10/21/2024 by Clarita Willard MD at [facility] Lead Medtronic Inc 08/18/2026 5076-5 2 / [id number] / Medtronic Inc Selectsecure 4.1fr 69cm Bipolar Screw In Is-1 Atrium Ventricle [id number] - [id number] - [id number] Implanted:Qty: 1 on 10/21/2024 by Clarita Willard MD at [facility] Lead Medtronic Inc 09/04/2026 [id number] / [id number] / Medtronic Inc Tyrx Absorbable Antibacterial Envelope Large 3.3x2.9in [id number] - [id number] Implanted:Qty: 1 on 10/21/2024 by Clarita Willard MD at [facility] Other - see comments Medtronic Inc 07/18/2025 [id number] / / [id number] Description:Tyrx envelope Med[employer]onic Inc Pacemaker Medical Records Receptionist P Mri Compatible Solara Surescan 11x46.5x59mm [id number] - [id number] - [id number] Implanted:Qty: 1 on 10/21/2024 by Clarita Willard MD at [facility] Pacemaker Med[employer]onic Inc 03/25/2025 [id number] / [id number] / [employer] Valve Aortic Trnscath Sunny 3 Ultra Resilia 26mm [id number] - [id number] - [id number] Implanted:Qty: 1 on 10/14/2024 by Neville Flower MD at [facility] Prosthetic Valve N/A: Aortic Valve [employer] 01/29/2027 [id number] / [id number] / Medtronic [employer] X [id number] Resolute Frank 2.5mm 2.1-2.7fr 26mm 140cm Rapid Exchange - [id number] Implanted:Qty: 1 on 07/14/2019 by Elliot Field MD at [facility] Stent Medtronic Inc 02/09/2021 [id number] [id number] / / [id number] Medtronic [employer] Inc X [id number] Resolute [place] 4mm 2.1-2.7fr 18mm 140cm Rapid Exchange Radiopaque - [id number] Implanted:Qty: 1 on 07/14/2019 by Elliot Field MD at [facility] Stent [employer]onic Inc 01/11/2021 [id number] 00 18UX / / [id number] Cadena Vascular System Closure Repair Femoral Artery Suture Mediated Perclose Prostyle 23062-75 - [id number] - [id number] Implanted:Qty: 1 on 10/14/2024 by Neville Flower MD at [facility] Vascular Closure Device Right: Common Femoral Artery [employer] 07/11/2026 45991-29 / [id number] / [id number] Procedures Procedure Name Priority Date/Time Associated Diagnosis Comments POCT HEMOGLOBIN A1C Routine 05/24/2025 2 :47 PM CDT Type 2 diabetes mellitus with hyperglycemia, with long-term current use of insulin (HCC) POCT GLUCOSE Routine 05/24/2025 2:45 PM CDT Type 2 diabetes mellitus with hyperglycemia, with long-term current use of insulin (HCC) COMPREHENSIVE METABOLIC PANEL Routine 01/19/2025 12:50 PM CDT LIPID PANEL Routine 01/19/2025 12:50 PM CDT ALBUMIN CREATININE RATIO, URINE Routine 01/19/2025 12:50 PM CDT DIABETES EYE EXAM Routine 06/16/2024 8:27 AM LEAD MANUFACTURING [employer]INEERING TECH from Last 3 Months or Most Recently Relevant to Health Maintenance Results * (ABNORMAL) POCT hemoglobin A1c (05/24/2025 2:47 PM CDT) Hemoglobin A1C, POC 7.5(A) 4.0 - 5.6 % Capillary blood 05/24/2025 2 :47 PM CDT us Lottie Carias MD POINT OF CARE TEST ORDERABLES Final Result * POCT glucose (05/24/2025 2:45 PM CDT) Pathologist [facility] Glucose Blood, POC 107 Normal Fasting 70 - 100, Random <200 mg/dL Blood 05/24/2025 2:45 PM CDT us Lottie Carias MD POINT OF CARE TEST ORDERABLES Final Result * Albumin Creatinine Ratio, Urine (01/19/2025 12:50 PM CDT) Pathologist [facility] Creatinine ur 101.2 Not Estab. mg/dL [facility] - 01 Microalbumin, ur 6.7 Not Estab. ug/mL [facility] - 01 Microalbumin/cre at ratio 7 0 - 29 mg/g creat [facility] - 01 Comment: Normal: 0 - 29 Moderately increased: 30 - 300 Severely increased: >300 01/19/2025 12:5 0 PM CDT 01/19/2025 Narrative [facility] - 01/20/2025 11:11 AM CDT Performed at: [facility] [id number] Patient Relations Specialist: Todd Nieves PhD, Phone: [phone] us Lottie Carias MD LAB URINE ORDERABLE S Final Result [facility] - 01 * (ABNORMAL) Lipid panel (01/19/2025 12:50 PM CDT) Cholesterol 104 100 - 199 mg/dL [facility] - 01 Triglycerides 122 0 - 149 mg/dL [facility] - 01 HDL Cholesterol 27(L) >39 mg/dL [facility] - 01 VLDL 22 5 - 40 mg/dL [facility] - 01 LDL, calculated 55 0 - 99 mg/dL [facility] - 01 01/19/2025 12:5 0 PM CDT 01/19/2025 Narrative [facility] - 01/20/2025 8:11 AM CDT Performed at: - [address] [id number] Patient Relations Specialist: Todd Nieves PhD, Phone: [phone] us Lottie Carias MD LAB BLOOD ORDERABLE S Final Result [facility] 01 * (ABNORMAL) Comprehensive metabolic panel (01/19/2025 12:50 PM CDT) Glucose 98 70 - 99 mg/dL [facility] - 01 BUN 29(H) 8 - 27 mg/dL [facility] - 01 Creatinine, Serum 1.93(H) 0.76 - 1.27 mg/dL [facility] - 01 eGFR 36(L) >59 mL/min/1.7 3 [facility] - 01 BUN/creat ratio 15 10 - 24 [facility] - 01 Sodium 143 134 - 144 mmol/L [facility] - 01 Potassium, sr 4.1 3.5 - 5.2 mmol/L [facility] - 01 Chloride 106 96 - 106 mmol/L [facility] - 01 CO2 20 20 - 29 mmol/L [facility] - 01 Calcium 8.6 8.6 - 10.2 mg/dL [facility] - 01 Protein, sr 6.0 6.0 - 8.5 g/dL [facility] - 01 Albumin 4.2 3.8 - 4.8 g/dL [facility] - 01 Globulin, Total 1.8 1.5 - 4.5 g/dL [facility] - 01 Bilirubin, Total 0.4 0.0 - 1.2 mg/dL [facility] - 01 Alk phos 95 44 - 121 IU/L [facility] - 01 AST 18 0 - 40 IU/L [facility] - 01 ALT 14 0 - 44 IU/L [facility] - 01 01/19/2025 12:5 0 PM CDT 01/19/2025 Narrative [facility] - 01/20/2025 8:11 AM CDT Performed at: - [facility] [address] [id number] Patient Relations Specialist: Todd Nieves PhD, Phone: [phone] us Lottie Carias MD LAB BLOOD ORDERABLE S Final Result [facility] - 01 * DIABETES EYE EXAM (06/16/2024 8: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 Historical Provider HEALTH MAINTENANCE Edited Result - Final from Last 3 Months or Most Recently Relevant to Health Maintenance Insurance MEDICARE [facility] [place]IC[place] [id number] MEDICARE [facility] [place] [id number] MEDICARE [facility] MEDICARE SUPPLEMENT INSURANCE Advance Directives For more information, please contact: [phone] * Full Code (Latest Code Status on File) Date Activated Date Inactivated Comments 10/18/2024 9:38 PM 10/23/2024 7:29 PM * Full Code Date Activated Date Inactivated Comments 10/14/2024 1:00 PM 10/15/2024 7:07 PM * Full Code Date Activated Date Inactivated Comments 06/29/2024 12:05 PM 06/29/2024 7:39 PM * Full Code Date Activated Date Inactivated Comments 06/28/2021 1:32 AM 06/30/2021 4:52 PM * Full Code Date Activated Date Inactivated Comments 02/23/2021 6:09 PM 02/26/2021 7:31 PM Care Teams Blanking Machine Operator Relationship Specialty Start Date End Date João Brown MD [address] [place] [id number] PCP - General 12/20/16 Dash Youssef MD [address] [address] Referring Physician Nephrology 01/13/18 [place] [address] [address] [address] Consulting Physician Endocrinology Diabetes & Metabolism 09/09/18 [place] [address] [address] [address] Consulting Physician Cardiothoracic Surgery 10/15/24 Neville Flower MD [address] [address] Consulting Physician Cardiology 10/15/24
--- OUTSIDE RECORDS SUMMARY | 2025-08-09 17:07 | XMS_ITS | Encounter Summary ---
Author Organization [facility] Healthcare Address [address] [place] [address] Care Team Providers Care Creative Art Director Name Role Phone João Brown MD Primary Care Provider Dash Youssef MD Unavailable [phone] Jimmy Freedman MD Unavailable Gorge Crain MD Unavailable [phone] Neville Flower MD Unavailable [phone] Encounter Details Date Type Department Care Team (Late st Contact Info) Description 03/13/2023 Telephone [facility] [address] [place] [address] Varsha Resendez, RN Social History Tobacco Use Types Packs/Day [...] often do you attend chur ch or islam services? More than 4 times per year 02/27/2021 Do you belong to any clubs o r organizations such as sikh groups, unions, fraternal or athletic groups, or [...] place to sleep or slept in a assisted (including now)? 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 Gender Identity Not on file Sexual Orientation [...] documented as of this encounter Care Teams Creative Art Director Relationship Specialty Start Date End Date João Brown MD [address] [facility] [address] [place] [address] PCP - General 12/20/16 Dash Youssef MD [address] [facility] [address] [place] [address] Referring Physician Nephrology 01/13/18 [place] [address] [address] Consulting Physician Endocrinology Diabetes & Metabolism 09/09/18 [place] [address] [address] [facility] [address], [place] [address] Consulting Physician Cardiothoracic Surgery 10/15/24 Neville Flower MD [address] [address] Consulting Physician Cardiology 10/15/24 documented as of this encounter
--- OUTSIDE RECORDS SUMMARY | 2025-08-09 17:07 | XMS_ITS | Encounter Summary ---
Author Organization [facility] Healthcare Address [address] [place] [address] Care Team Providers Care Tank Welder Name Role Phone João Brown MD Primary Care Provider Dash Youssef MD Unavailable [phone] Jimmy Freedman MD Unavailable Gorge Crain MD Unavailable [phone] Neville Flower MD Unavailable [phone] Encounter Details Date Type Department Care Team (Late st Contact Info) Description 03/22/2023 Telephone [facility] [address] [place] [address] Ceci Vogel, RN Social History [...] often do you attend chur ch or confucianism services? More than 4 times per year 02/27/2021 Do you belong to any clubs o r organizations such as hinduism groups, unions, fraternal or athletic groups, or [...] place to sleep or slept in a fpc (including now)? No 02/27/2021 Personal Safety Answer Date Recorded Have you ever been in or are you currently in a harmful physical or emotional relationship or is someone making you feel afraid or unsafe? 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 Gender Identity Not on file Sexual Orientation [...] documented as of this encounter Care Teams Tank Welder Relationship Specialty Start Date End Date João Brown MD [address] [place] [address] PCP - General 12/20/16 Dash Youssef MD [address] [address] Referring Physician Nephrology 01/13/18 [place] [address] [address] Consulting Physician Endocrinology Diabetes & Metabolism 09/09/18 [place] [address] [address] Consulting Physician Cardiothoracic Surgery 10/15/24 Neville Flower MD [address] [address] Consulting Physician Cardiology 10/15/24 documented as of this encounter
--- OUTSIDE RECORDS SUMMARY | 2025-08-09 17:07 | XMS_ITS | Encounter Summary ---
Author Organization [facility] Address [address] [facility] [place] [address] Care Team Providers Care Outboard Motor Tester Name Role Phone Unavailable Primary Care Provider Unavailabl e Encounter Details Date Type Department Care Team (Late st Contact Info) Description 04/13/2025 Lab Requisition [facility] - [facility] Lab [address] [facility] [place] [id number] Sandy Ayala MD [address] [facility] [address] [place] [address] Social History Tobacco Use Types Packs/Day Years Used Date Smoking Tobacco: Never Smokeless Tobacco: Never Alcohol Use Standard Drinks/Week Comments No 0 (1 standard drink = 0.6 oz pur e alcohol) Sex and Gender Information Value Date Recorded Sex Assigned at Not on file Legal Sex Male 5:46 PM ADMISSION DISCHARGE RN Gender Identity Not on file Sexual Orientation Not on file documented as of this encounter Plan of Treatment Not on file documented as of this encounter Procedures Procedure Name Priority Date/Time Associated Diagnosis Comments DERMATOPATHOLOGY Routine 04/13/2025 10:5 7 AM CDT documented in this encounter Results * DERMATOPATHOLOGY (04/13/2025 10:57 AM CDT) Case Report Dermatopathology Report Case: [id number] Authorizing Provider: Sandy Ayala MD Collected: 04/13/2025 10:57 AM Ordering Location: [facility] Physician [facility] - Received: 04/13/2025 03:40 PM [facility] Lab Pathologist: Te Can MD Specimen: Skin, left posterior upper arm 3:39 PM CDT DERMATOPATHOLOGY LABORATORY Final Diagnosis Specimen A. SKIN, left posterior upper arm: SQUAMOUS CELL CARCINOMA, WELL DIFFERENTIATED (C44.629) NOT PRESENT AT MARGIN DERMAL SCAR (L90.5) 3:39 PM CDT DERMATOPATHOLOGY LABORATORY at 1539 CDT Clinical History Bx proven SCCIS 3:39 PM CDT DERMATOPATHOLOGY LABORATORY Gross Description Specimen A: Received is one formalin filled container labeled with the patient's name and designated left posterior upper arm.The specimen consists of an ellipse measuring [id number] mm and is oriented with the notch at the 12 o'clock position labeled on the requisition as superior. The 12 to 6 o'clock margin is inked green. The 6 o'clock to 12 o'clock margin is inked red. The 12 o'clock tip is submitted in cassette 1. The 6 o'clock tip is submitted in cassette 2. The remainder of the ellipse is serially sectioned and submitted in cassettes 3-4. Jar 0. 3:39 PM CDT DERMATOPATHOLOGY LABORATORY Microscopic Description Specimen A. SKIN, left posterior upper arm: Arising in the epidermis and extending into the dermis there are irregularly shaped aggregates of keratinocytes showing evidence of premature cornification. This lesion is not present at the margin of the specimen. There are fibroblasts and collagen bundles oriented parallel to the skin surface with elongated blood vessels, some of which are oriented perpendicular to the skin surface. 3:39 PM CDT DERMATOPATHOLOGY LABORATORY Disclaimer An external and internal positive and negative controls are appropriate for the histochemical, immunohistochemical and immunofluorescence stain(s) in this case (if any), except where stated explicitly. The performance characteristics of the stain(s) cited in this report were developed and its performance characteristic determined by the Dermatopathology Laboratory at [facility], directed by Dr. Laverne Can. These tests need not be, and therefore are not, approved by the [place] Food and Drug Administration. The tests are used for clinical purposes. Billing Codes Specimen Charges Stain Charges 30534 1 3:39 PM CDT DERMATOPATHOLOGY LABORATORY Embedded Images 3:39 PM CDT DERMATOPATHOLOGY LABORATORY Pathology/Cytolo gy TISSUE SPECIMEN FROM SKIN / Unknown 04/13/2025 10:57 AM CDT 04/13/2025 3:40 PM CDT us Sandy Ayala MD LAB - PATHOLOGY/CYTOLOGY ORD ERABLES Final Result DERMATOPATHOLOGY LABORATORY [facility] - Department of Dermatology [facility] Medicine [address] [place] [address], [address] [phone] documented in this encounter Visit Diagnoses Not on filedocumented in this encounter
--- OUTSIDE RECORDS SUMMARY | 2025-08-09 17:07 | XMS_ITS | Data Portability ---
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 Today the left knee is bothering him. We talked about treatment options he wanted proceed with cortisone therefore under sterile conditions I injected the patient's left knee joint in the office with 4 cc of 0.5% bupivacaine and 20 mg of Kenalog. Patient tolerated the procedure well. His new x-rays today of both knees do not show any changes since his previous x-rays April of 2023. Most of the osteoarthritis is noted to be in the patellofemoral articulations he also has some narrowing in the medial compartment of the left knee. We will see how he does with conservative measures and time. I will see him back in 3 months if necessary for another shot of cortisone he voiced understanding and agreed with the above plan he will call for any further problems difficulties or questions. Not available 07/23/2024 10:47:32 11/12/2024 11/12/2024 The patient has chronic bilateral knee pain due to moderate primary osteoarthritis of both knees. We talked about treatment options today in detail he just had significant heart surgery couple of weeks ago I have advised him that we probably should avoid cortisone for now but we could do gel shots he wanted proceed. Under sterile conditions I injected the patient's bilateral knee joints in the office today with Monovisc injections. The patient tolerated the procedures well. We can do gel shots again in 6 months if necessary versus cortisone in between. I will see him back as needed he voiced understanding and agreed with the above plan he will call for any further problems difficulties or questions. Not available 11/12/2024 11:58:57 03/12/2025 03/12/2025 The patient has left shoulder rotator cuff tendonitis and aggravating pain. We talked about treatment options today in detail his x-rays looked unremarkable. Subacromial space is well-maintained he has no weakness. No trauma or injury. At his request under sterile conditions I injected the patient's left shoulder subacromial space in the office with 4 cc of 0.5% bupivacaine and 20 mg of Kenalog. Patient tolerated procedure well. I will see him back in 6 weeks if necessary if his symptoms continue. He has a pacemaker so we can not do an MRI scan he also can not take nonsteroidal anti-inflammatory medication. Our options are somewhat limited further treatment plan. Hopefully he will get some relief from the cortisone injection. The patient also has moderate primary osteoarthritis of both knees left knee is bothering him today he would like a shot of cortisone therefore under sterile conditions I injected the patient's left knee joint in the office with 4 cc of 0.5% bupivacaine and 20 mg of Kenalog. The patient tolerated the procedure well. I will see him back as needed for this we can do this again in 3 months if necessary he voiced understanding agrees with the above plan. Not available 03/12/2025 12:37:46 07/01/2025 07/01/2025 The patient has mild to [...] for any further problems difficulties or questions. Not available 07/01/2025 14:19:11 07/20/2025 07/20/2025 The patient has ongoing left [...] for any further problems difficulties or questions. Not available 07/20/2025 15:06:22 Plan of Treatment Reminders Order Date Submit Date Provider Last Modified By Organization Details Last Modified Time Details Appointments None recorded. Lab None recorded. Referral None recorded. Procedures injection/a spiration joint/bursa (PROC) 2024 025 [email or web address] In-Office Order, Internal Use Only DO Not Attach Compendium DO Not Attach Compendium, Do Not Delete/merge, [id number] 14:52:57 injection/a spiration joint/bursa (PROC) 2024 025 [email or web address] In-Office Order, Internal Use Only DO Not Attach Compendium DO Not Attach Compendium, Do Not Delete/merge, [id number] 13:55:17 injection/a spiration joint/bursa (PROC) 2024 025 [email or web address] In-Office Order, Internal Use Only DO Not Attach Compendium DO Not Attach Compendium, Do Not Delete/merge, [id number] 12:43:55 injection/a spiration joint/bursa (PROC) 2024 025 In-Office Order, Internal Use Only DO Not Attach Compendium DO Not Attach Compendium, Do Not Delete/merge, [id number] 12:03:09 injection/a spiration joint/bursa (PROC) 2024 025 [email or web address] In-Office Order, Internal Use Only DO Not Attach Compendium DO Not Attach Compendium, Do Not Delete/merge, [id number] 5 11:33:06 injection/a spiration joint/bursa (PROC) 2023 024 [email or web address] In-Office Order, Internal Use Only DO Not Attach Compendium DO Not Attach Compendium, Do Not Delete/merge, [id number] 10:30:54 Surgeries None recorded. Imaging XR, shoulder 2024 025 [email or web address] [facility] [place], [address], [place], [address], 5 14:13:59 XR, knee 2023 024 [email or web address] [facility] [place], [address], [place], [address], 4 10:48:44 Medication Orders bupivacaine HCl 0.5 % (5 mg/mL) injection solution [address] [place], [address], 5 15:48:24 triamcinolo ne acetonide 40 mg/mL suspension for injection [address], [address] [facility], [place], [address], 5 15:48:24 bupivacaine HCl 0.5 % (5 mg/mL) injection solution [email or web address], [address] [place], [address], 5 14:36:28 triamcinolo ne acetonide 40 mg/mL suspension for injection [address], [address], [place], [address], 5 14:36:28 bupivacaine HCl 0.5 % (5 mg/mL) injection solution [address], [address], [place], [address], 5 14:25:02 Kenalog 10 mg/mL suspension for injection [address], [address], [place], [address], 5 14:25:02 bupivacaine HCl 0.5 % (5 mg/mL) injection solution [address], [address], [place], [address], 5 12:41:11 Kenalog 10 mg/mL suspension for injection [address], [address], [place], [address], 5 12:41:11 Monovisc 88 mg/4 mL intra-artic ular syringe 2024 025 [facility] [address], [address], [place], [address], 5 11:57:04 bupivacaine HCl 0.5 % (5 mg/mL) injection solution [address], [address], [place], [address], 4 10:31:53 Kenalog 10 mg/mL suspension for injection [email or web address], [address], [place], [address], 5 11:56:21 Patient TargetsNo targets recorded. Patient InstructionsNo instructions recorded. Reason for Referral None Reported. Results Created Date Observation Date Name Description Value Unit Range Abnormal Flag Note LastModifiedBy Organization Detail LastModifiedTime 07/23/20 24 XR, knee No observ ation record ed. [email or web address] [facility] [place] [address] [facility] [address], [place], [address], 07/23/2024 10:48:41 03/12/20 25 XR, shoul ewa No observ ation record ed. [email or web address] [facility] [place] [address] [facility] [address], [place], [address], 03/12/2025 12:38:41 Result Notes None recorded. Problems Name Problem SNOMED Code Status Onset Date Resolution Date Notes Provider Name and Address Organization Details Recorded Time Disorder of shoulder 056984113 Active 2018 Not Available [employer] 3 13:36:01 Full thickness rotator cuff tear 595602423 Active 2018 Not Available [employer] 3 13:36:02 Morbid obesity 541381059 Active 2019 Not Available [employer] 3 13:36:02 Knee pain Active 2020 Not Available [employer] 3 13:36:02 Bilateral osteoarthr itis of knees 7801367892837 07 Active 2021 Not Available [employer] 3 13:36:01 Tendinitis of right rotator cuff 4047821586487 9104 Active 2021 Not Available [employer] 3 13:36:01 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 0438093406282 00 Active 2021 Not Available [employer] 3 13:36:02 Pain of left knee joint 6139104115134 07 Active 2021 BENJAMIN Donahue [address] [facility], [facility] [address], [place], [address] , [place] [facility] 5 12:39:13 Pain of right knee joint 8002289973054 00 Active 2021 Not Available [employer] 3 13:36:02 Pain of left shoulder joint 5166338536866 9109 Active 2021 Not Available [employer] 3 13:36:01 Partial thickness rotator cuff tear 711384947 Active 2021 Not Available [facility] 3 13:36:01 Osteoarthr itis 656906504 Active [address] [facility] 3 13:36:02 Pain of left knee region 3304014457285 09 Active 2021 Not Available [facility] 3 13:36:02 Rupture of rotator cuff of right shoulder 5915677772637 9103 Active 2022 Not Available [facility] 3 13:36:01 Tendinitis of left rotator cuff 1349943975210 9101 Active 2022 BENJAMIN Donahue [address], [address], [place], [address] , [place] [facility] 5 12:37:55 Partial thickness rotator cuff tear 416720405 Active 2022 BENJAMIN Donahue [address], [address], [place], [address] , [place] [facility] 3 10:59:32 Pain of right shoulder joint 7523250813785 9100 Active 2022 Patria Morales CNA null, [place] [facility] 3 11:38:14 Partial thickness rotator cuff tear 546501534 Active 2022 BENJAMIN Donahue [address], [address], [place], [address] , [place] [facility] 3 11:47:54 Nontraumat ic partial rupture of right rotator cuff 9447323391482 109 Active 2022 BENJAMIN Donahue [address], [address], [place], [address] , [facility] [employer] 3 11:07:55 Pain of bilateral knee joints 3018578225098 04 Active 2023 HEATHER Patterson, MD [employer] [employer] [facility] [employer] 4 10:48:54 Problem Notes None recorded. Procedures Surgical History Date Name Laterality Status Provider Name and Address Organization Details Recorded Time 03/18/20 24 Orthovisc Injection completed Jenn Carter NP [address], [address], [place], [address], [facility] [employer] [facility] [employer] 03/18/2024 11:26:54 02/22/20 23 Ortho - Cortisone Injection completed Hiro Duke MD [address], [address], [place], [address], [facility] [employer] [facility] [employer] 02/21/2023 11:44:55 02/08/20 23 Ortho - Cortisone Injection completed Hiro Duke MD [address], [place], [address], [employer] [facility] [employer] 02/07/2023 13:04:07 implantation of cardiac pacemaker completed IRON Taylor MD [employer] [facility] [facility] [employer] [facility] [employer] 03/12/2025 12:00:10 Imaging Results None recorded. Procedure Notes None recorded. Medical Equipment None Reported. Allergies Allergen ID Allergen Name Allergen Category Reaction Reaction Severity Criticality Documentation Date Start Date Code Code System Note Provider Name and Address Organization Details Recorded Time 94903 Product containin g penicilli n (product) medicatio n Not available Not available Not available 10/10/2022 39620 8001 SNOMED Not Available [facility] 3 13:38:17 25364 amlodipin e medicatio n swelling Not available high 06/30/20252024 06174 RxNorm Leg swell ing Not Available [facility] [employer] - prod 5 18:23:00 18817 penicilli n G Not available rash Not available high 06/30/20252016 7980 RxNorm unrec ogniz ed react ion (text : Blist ers, code: 46103 7009) (from [facility]) Not Available [employer] [employer] [...] 20 mg by injection route. 2024 active [facility]: 0003- 0494- 20 Not Available Not Available [...] with needle 1 mL 31 gauge x 5/16 active Not Available [...] administe red by the provider 08/01 completed [facility]: 0409- 4276- 17 Not Available Not Available [...] 20 mg by injection route. 01/08 completed [facility] 91102 -064- 01 Not Available Not Available Not [...] and Address Organization Details Last Updated DateTime 11/12/2024 177.8 cm 35.7 kg/m2 746779.5 g Patria Morales CNA [employer] [facility] [employer] 11/12/2024 11:31:19 Date Recorded Body height Body mass index (BMI) Body weight Pain severity - 0-10 verbal numeric rating [Score] - Reported Provider Name and Address Organization Details Last Updated DateTime 03/12/2025 177.8 cm 35.6 kg/m2 294794.91 g IRON Prasad [employer] [facility] [employer] 03/12/2025 11:54:42 Date Recorded Body height Body mass index (BMI) Body weight Provider Name and Address Organization Details Last Updated DateTime 07/01/2025 177.8 cm 35.6 kg/m2 043993.91 g Patria Morales CNA [place] [employer] 07/01/2025 13:52:33 Date Recorded Body height Body mass index (BMI) Body weight Provider Name and Address Organization Details Last Updated DateTime 07/20/2025 177.8 cm 35.6 kg/m2 713915.91 HEATHER Mena [employer] 07/20/2025 14:49:18 Date Recorded Body height Body mass index (BMI) Body weight Provider Name and Address Organization Details Last Updated DateTime 07/23/2024 177.8 cm 37 kg/m2 652741.83 HEATHER Mena [employer] 07/23/2024 10:27:01 Social History Question Answer Notes LastModified by [employer] Details LastModified Time Tobacco Smoking Status Unknown If Ever Smoked Not Available [facility] 10/10/2022 13:35:20 What Was The Date Of Your Most Recent Tobacco Screening? 07/20/2025 [email or web address] Information not available 07/20/2025 Sex: Unknown Functional Status Question Answer Note LastModified by [employer] Details LastModified Time What is your level of alcohol consumption? None [id number] Information not available 10/10/2022 Mental Status None recorded. Family History Relationship Description Onset Age of this Age Resolved Age Notes LastModified by Organization Details LastModified Time Father Family history of malignant neoplasm [id number] [id number] Not available 10/10/2022 13:35:28 Father Diabetes mellitus [id number].787 [id number] Not available 10/10/2022 13:35:28 Maternal Grandmother Hypertensive disorder [id number].154 [id number] Not available 10/10/2022 13:35:28 Maternal Grandmother Family history of stroke MIGRATION.723 [id number] Not available 10/10/2022 13:35:28 Maternal Grandfather Heart disease MIGRATION.938 [id number] Not available 10/10/2022 13:35:28 Medical History Condition Response ARTHRITIS Y CANCER: SPECIFY Y USE OF BLOOD THINNERS Y VASCULAR DISEASE Y HEART DISEASE/HEART PROBLEMS Y DIABETES, TYPE Y HEART ARRHYTHMIA Y HYPERTENSION Y STROKE/TIA Y Past Encounters Encounter ID Performer Location Encounter Start Date Encounter Closed Date Diagnosis/Indication Diagnosis SNOMED-CT Code Diagnosis ICD10 Code Diagnosis IMO Codes Diagnosis Note [id number] BENJAMIN Donahue [facility] [place] [address] [place] [address] 10/20/2020 00:00:00 10/20/2020 14:39:12 [id number] BENJAMIN Donahue [facility] [place] [address] [place] [address] 10/27/2020 00:00:00 10/27/2020 11:48:07 [id number] Hiro Duke MD [facility] [place] [address] [place] [address] 11/03/2020 00:00:00 11/03/2020 11:25:53 [id number] MD [facility]ERT [facility] [place] [address] [place] [address] 12/15/2020 00:00:00 12/15/2020 11:13:06 [id number] BENJAMIN Donahue [facility] [place] [address] [place] [address] 02/03/2021 00:00:00 02/03/2021 15:47:28 [id number] Hiro Duke MD [facility] [address] [place] [address], [place] [address] 05/09/2021 00:00:00 05/09/2021 10:44:31 [id number] Hiro Duke MD [facility] [place] [address] [place] [address] 08/01/2021 00:00:00 08/01/2021 15:28:13 [id number] MD MERT [facility]enz[facility] [place] [address] [place] [address] 10/16/2021 00:00:00 10/18/2021 09:06:13 [id number] Hiro Duke MD [facility] [place] [address] [place] [address] 12/26/2021 00:00:00 12/26/2021 14:53:10 [id number] Hiro Duke MD [facility] [place] [address] [place] [address] 03/05/2022 00:00:00 03/05/2022 10:28:19 [id number] Hiro Duke MD [facility] [place] [address] [place] [address] 04/30/2022 00:00:00 04/30/2022 10:59:46 [id number] Hiro Duke MD [facility] [place] [address] [place] [address] 05/08/2022 00:00:00 05/08/2022 15:00:06 [id number] Hiro Duke MD [facility] [place] [address] [place] [address] 05/22/2022 00:00:00 05/22/2022 15:00:56 [id number] Hiro Duke MD [facility] [place] [address] [place] [address] 07/09/2022 00:00:00 07/09/2022 10:27:43 [id number] Hiro Duke MD [facility] [place] [address] [place] [address] 07/30/2022 00:00:00 07/30/2022 10:41:06 [id number] Hiro Duke MD [facility] [place] [address] [place] [address] 08/21/2022 00:00:00 08/21/2022 15:16:40 [id number] Hiro Duke MD [facility] [place] [address] [place] [address] 08/27/2022 00:00:00 08/27/2022 11:18:38 [id number] BENJAMIN Donahue [facility] [place] [address] [place] [address] 10/18/2022 11:10:17 10/18/2022 14:06:21 Bilateral osteoarthritis of knees 4016186696 09030 M17.0 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 4143165700 40221 M19.011 Tendinitis of right rotator cuff 1319815404 9399146 M67.813 Pain of le ft shoulder joint 8089060640 1660230 M25.512 Pain of ri ght knee joint 5547806705 81009 M25.561 Partial th ickness rotator cuff tear 859986151 M75.102 Rupture of rotator cuff of right shoulder 5657814009 3645718 M75.101 Morbid obesity 735721544 E66.01 Tendinitis of left rotator cuff 4530073594 9795077 M67.814 [id number] Hiro Duke MD [facility] [place] [address] [place] [address] 12/13/2022 10:40:23 12/13/2022 12:18:15 Bilateral osteoarthritis of knees 7120548617 26763 M17.0 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 9020418924 66764 M19.011 Tendinitis of right rotator cuff 4212766338 6643968 M67.813 Tendinitis of left rotator cuff 1725829816 6071682 M67.814 Pain of le ft shoulder joint 2279579816 9568438 M25.512 Pain of ri ght knee joint 1365347303 47812 M25.561 Partial th ickness rotator cuff tear 896349990 M75.102 Rupture of rotator cuff of right shoulder 7994806283 1218636 M75.101 Morbid obesity 960004717 E66.01 [id number] Hiro Duke MD [facility] [place] [address] [place] [address] 01/24/2023 10:52:33 01/24/2023 11:14:53 Pain of left shoulder joint 7302389371 6810855 M25.512 Partial th ickness rotator cuff tear 504887765 M75.102 Morbid obesity 246475389 E66.01 [id number] Hiro Duke MD [facility] [place] [address] [place] [address] 02/07/2023 12:45:28 02/07/2023 13:37:55 Bilateral osteoarthritis of knees 5539680128 95681 M17.0 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 2624605839 17205 M19.011 Tendinitis of right rotator cuff 1041741637 4234435 M67.813 Tendinitis of left rotator cuff 9510967775 7070141 M67.814 Pain of le ft shoulder joint 8119687101 6110590 M25.512 Pain of ri ght knee joint 5510145740 82579 M25.561 Partial th ickness rotator cuff tear 173333175 M75.102 Rupture of rotator cuff of right shoulder 4488089645 3893336 M75.101 Morbid obesity 200335579 E66.01 [id number] Hiro Duke MD [employer] [facility] [place] [address] [place] [address] 02/21/2023 10:56:53 02/21/2023 13:05:24 Pain of left shoulder joint 7211447077 1457753 M25.512 Tendinitis of left rotator cuff 7264683858 4424543 M67.814 Partial th ickness rotator cuff tear 124478549 M75.534 [id number] Hiro Duke MD [facility] [place] [address] [place] [address] 05/02/2023 11:14:20 05/02/2023 11:47:56 Pain of left knee joint 6984354281 01980 M25.562 Bilateral osteoarthritis of knees 8659362624 54517 M17.0 Pain of ri ght shoulder joint 8307090410 0318065 M25.511 Partial th ickness rotator cuff tear 093901459 M75.111 Tendinitis of right rotator cuff 9708047962 5101334 M67.093 [id number] BENJAMIN Donahue [facility] [place] [address] [place] [address] 08/01/2023 10:31:51 08/01/2023 11:14:56 Bilateral osteoarthritis of knees 4385241534 72728 M17.0 Pain of le ft knee joint 7572849298 59967 M25.562 Nontraumat ic partial rupture of right rotator cuff 4897657932 561162 M75.111 Tendinitis of right rotator cuff 0399911068 8219889 M67.786 [id number] Jacob Bridges MD [employer] [facility] [place] [address] [place] [address] 01/09/2024 11:19:05 01/09/2024 13:21:49 Bilateral osteoarthritis of knees 9911937675 24739 M17.0 Pain of ri ght knee joint 0664063865 45582 M25.561 Pain of le ft knee joint 4610478838 50910 M25.562 Partial th ickness rotator cuff tear 477073806 M75.111 Full thick ness rotator cuff tear 074285931 M75.121 Knee pain 02100961 M25.5 61 M25.562 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 1868182803 56488 M19.011 Osteoarthritis 166063168 M17.0 [id number] Jacob Bridges MD [facility] [place] [address] [place] [address] 03/12/2024 10:45:57 03/12/2024 11:11:23 Bilateral osteoarthritis of knees 5325407586 68986 M17.0 Pain of bi lateral knee joints 1864206403 14753 M25.561 M25.635 [id number] Jacob Bridges MD [employer] [facility] [place] [address] [place] [address] 03/18/2024 10:55:42 03/18/2024 11:32:09 Bilateral osteoarthritis of knees 3450936744 39826 M17.0 Pain of ri ght knee joint 2650320107 39299 M25.561 Pain of le ft knee joint 9149480879 38854 M25.944 [id number] Jacob Bridges MD [facility] [place] [address] [place] [address] 03/26/2024 10:59:41 03/26/2024 12:08:16 Bilateral osteoarthritis of knees 2316830762 00643 M17.0 Pain of bi lateral knee joints 5262652398 64790 M25.561 M25.289 [id number] Jacob Bridges MD [employer] [facility] [place] [address] [place] [address] 07/23/2024 10:24:11 07/23/2024 10:48:43 Pain of left knee joint 5754068171 79896 M25.562 Bilateral osteoarthritis of knees 8898994580 89344 M17.0 [id number] Jacob Bridges MD [employer] [facility] [place] [address] [place] [address] 11/12/2024 11:28:25 11/12/2024 12:02:41 Bilateral osteoarthritis of knees 2799085538 53141 M17.0 Pain of bi lateral knee joints 3904834511 19175 M25.561 M25.067 [id number] Jacob Bridges MD [employer] [facility] [place] [address] [place] [address] 03/12/2025 11:34:38 03/12/2025 14:13:58 Bilateral osteoarthritis of knees 9958197117 75742 M17.0 Pain of le ft shoulder joint 4736915466 0701465 M25.512 Tendinitis of left rotator cuff 6557367006 3449696 M75.82 [id number] Pain of le ft knee joint 6813933608 06110 M25.562 528104 [id number] Jacob Bridges MD [facility] [facility] [place] [address] [place] [address] 07/01/2025 13:48:28 07/01/2025 15:08:35 Bilateral osteoarthritis of knees 3815032073 58436 M17.0 Pain of le ft knee joint 3529212494 75064 M25.562 493459 [id number] Jacob Bridges MD [employer] [facility] [address] [place] [address] 07/20/2025 14:40:11 07/20/2025 16:03:48 Pain of left shoulder joint [id number] M25.512 Tendinitis of left rotator cuff [id number] M75.82 [id number] Health Concerns Section Related Observation LastModified by Organization Detmarleny ls LastModified Time None Recorded Concern Status LastModified by Organization Details LastModified Time None Recorded Advance Directives Directive None Recorded Payers Insurance Date Sequence Insurance Name Policy Number Policy Medina Covered Member ID Medina Member ID Guarantor Name 07/12/2025 1 [place] Ranjeet Morejon [id number] Ranjeet Morejon 07/18/2025 2 [employer] SUPPLEMENTAL - [employer] (MEDICARE SUPPLEMENT) Ranjeet Morejon [id number] Ranjeet Morejon 06/02/2025 RACHEL GODINEZ Ranjeet Morejon Notes Date Note Type Note Provider Name and Address Organization Details Recorded Time 07/23/2024 text/html The patient returns with left knee pain he has moderately severe primary osteoarthritis in both knee joints the right knee is feeling pretty good he had gel shots about 4 months ago. The left knee is bothering him again he denies any specific trauma or injury no new complaints other than just recurrence of his old knee pain. He would like a shot of cortisone today. BENJAMIN Donahue [address], [place], [address], [employer] 07/23/2024 10:49:03 11/12/2024 text/html patient returns with bilateral knee pain, I have seen him for this chronically he has moderately severe primary osteoarthritis both knees. He has had previous cortisone and gel shots which worked pretty well for him. About 2-3 weeks ago he had a pacemaker and aortic valve replacement. Currently he is on Eliquis he is recovering from this surgeries. He had the aortic valve replacement on October 26 followed by a pacemaker on November 02. Does have a lot of bruising and swelling throughout the thigh somewhat into the calf. Because he has had recent surgery I have advised him that maybe we should avoid cortisone injections in the knees we could do gel shots today he would like to proceed with that. Denies any new problems with either knee just recurrence of his old arthritic pain both knees. No erythema effusion or signs of infection in either knee. BENJAMIN Donahue [address], [place], [address], [employer] 11/12/2024 11:59:39 03/12/2025 text/html The patient returns with 2 problems today. He is complaining of his left shoulder in his left knee. We have not seen him for his left shoulder since February of 2023. He states he has had no new trauma or injury. His x-rays today do not show any significant findings he only has mild osteoarthritis of the AC joint otherwise unremarkable. He denies any weakness just aching pain that radiates into the upper arm a bit he has full range of motion good strength and stability just aggravating aching that he reports about a 6 on a scale of 1-10. Despite conservative measures on his own his symptoms continue. He states that his pain feels similar to how it did 2 years ago we shot of cortisone gave him excellent relief he would like to have that injected today. The patient also has chronic left knee pain I have seen him for cortisone and gel shots injections previously. He is on Eliquis so we can not give him any nonsteroidal anti-inflammatory medication. He does have mild to moderate primary osteoarthritis of both knees left knee bothers him typically. He denies any locking or catching or mechanical symptoms no effusion or swelling just aching pain mostly medially this seems to be where he has most of his narrowing of the knee joint he would like that injected again today. It has been almost 4 months since his last injection. A new past medical history sheet was reviewed and signed on the intake sheet of today's date drug allergies current medications family social history previous surgical history 10 point review of systems was reviewed and discussed in detail today with the patient. The patient has previous knee x-rays were also reviewed with him today in detail. BENJAMIN Donahue, [address] [facility], [place], [address], [place] [facility] [employer] 03/12/2025 13:02:59 07/01/2025 text/html The patient returns with left [...] would like another 1 today. BENJAMIN Donahue [address], [place], [address], [employer] 07/01/2025 14:19:38 07/20/2025 text/html The patient returns complaining of [...] to weaken the tendon however. BENJAMIN Donahue [address], [place], [address], [employer] 07/20/2025 15:06:44
--- OUTSIDE RECORDS SUMMARY | 2025-08-09 17:07 | XMS_ITS | Encounter Summary ---
Author Organization [facility] Address [address] [facility] [place] [address] Care Team Providers Care Legal Aide Name Role Phone Unavailable Primary Care Provider Unavailabl e Encounter Details Date Type Department Care Team (Late st Contact Info) Description 03/02/2025 Lab Requisition [facility] - DermPath Lab [address] [facility] [address] [facility] [place] [phone] Sandy Ayala MD [address] [facility] [address] [place] [address] Social History Tobacco Use Types Packs/Day Years Used Date Smoking Tobacco: Never Smokeless Tobacco: Never Alcohol Use Standard Drinks/Week Comments No 0 (1 standard drink = 0.6 oz pur e alcohol) Sex and Gender Information Value Date Recorded Sex Assigned at Not on file Legal Sex Male 5:46 PM RISK LEAD Gender Identity Not on file Sexual Orientation Not on file documented as of this encounter Plan of Treatment Not on file documented as of this encounter Procedures Procedure Name Priority Date/Time Associated Diagnosis Comments DERMATOPATHOLOGY Routine 03/02/2025 11:3 3 AM CDT documented in this encounter Results * DERMATOPATHOLOGY (03/02/2025 11:33 AM CDT) Case Report Dermatopathology Report Case: [id number] Authorizing Provider: Sandy Ayala MD Collected: 03/02/2025 11:33 AM Ordering Location: [facility] - Received: 03/03/2025 07:40 AM DermPath Lab Pathologist: Te Can MD Specimens: A) - Skin, right forearm B) - Skin, right dorsal hand C) - Skin, left forearm D) - Skin, left post upper arm 12:41 PM [facility] Final Diagnosis Specimen A. 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 SKIN, right dorsal hand: HYPERPLASTIC (HYPERTROPHIC) ACTINIC KERATOSIS; EXTENDING TO THE BASE OF THE SPECIMEN (L57.0) (see microscopic description and comment) Specimen C. SKIN, left forearm: HYPERPLASTIC (HYPERTROPHIC) ACTINIC KERATOSIS WITH ASSOCIATED CHANGES OF PRURIGO NODULARIS (L57.0) Specimen D. SKIN, left post upper arm: SQUAMOUS CELL CARCINOMA, WELL DIFFERENTIATED (C44.629) 12:41 PM T DERMATOPATHOLOGY LABORATORY at 1241 T Clinical History A-D: R/O SCC 12:41 PM [facility] Gross Description Specimen A: Received is one formalin filled container labeled with the patient's name and designated right forearm. The specimen consists of a shave biopsy measuring 7x6x2 mm. Jar 0. Specimen B: Received is one formalin filled container labeled with the patient's name and designated right dorsal hand. The specimen consists of a shave biopsy measuring 5x4x1 mm. Jar 0. Specimen C: Received is one formalin filled container labeled with the patient's name and designated left forearm. The specimen consists of a shave biopsy measuring 6x5x1 mm. Jar 0. Specimen D: Received is one formalin filled container labeled with the patient's name and designated left post upper arm. The specimen consists of a shave biopsy measuring 7x7x2 mm. Jar 0. 12:41 PM [facility] Microscopic Description Specimen A. SKIN, right forearm: The epidermis shows parakeratosis, full thickness disorderly maturation of keratinocytes, mitoses at different levels, and dyskeratotic cells. Specimen B. SKIN, right dorsal hand: There is hyperkeratosis alternating with parakeratosis. There is epidermal hyperplasia with disorderly maturation of keratinocytes with nuclear pleomorphism confined to the lower half of the epidermis. This process extends to the base of the specimen. COMMENT: A squamous cell carcinoma cannot be ruled out. Specimen C. SKIN, left forearm: There is hyperkeratosis alternating with parakeratosis. There is epidermal hyperplasia with disorderly maturation of keratinocytes with nuclear pleomorphism confined to the lower half of the epidermis. There is a dome-shaped portion of skin with psoriasiform epidermal hyperplasia, compact hyperkeratosis, and fibrosis of the papillary dermis associated with a superficial perivascular lymphohistiocytic infiltrate. Specimen D. SKIN, left post upper arm: Arising in the epidermis and extending into the dermis there are irregularly shaped aggregates of keratinocytes showing evidence of premature cornification. 12:41 PM CDT DERMATOPATHOLOGY LABORATORY Disclaimer An external and internal positive and negative controls are appropriate for the histochemical, immunohistochemical and immunofluorescence stain(s) in this case (if any), except where stated explicitly. The performance characteristics of the stain(s) cited in this report were developed and its performance characteristic determined by the Dermatopathology Laboratory at [facility], directed by Dr. Laverne Can. These tests need not be, and therefore are not, approved by the [place] Food and Drug Administration. The tests are used for clinical purposes. Billing Codes Specimen Charges Stain Charges 32832 94320 [id number] 1 1 1 1 12:41 PM CDT DERMATOPATHOLOGY LABORATORY Embedded Images 12:41 PM CDT DERMATOPATHOLOGY LABORATORY Pathology/Cytology TISSUE SPECIMEN FROM SKIN / Unknown 03/02/2025 11:33 AM CDT 03/03/2025 7:40 AM CDT Miscellaneous samples (specimen) TISSUE SPECIMEN FROM SKIN / Unknown 03/02/2025 11:33 AM CDT 03/03/2025 7:40 AM CDT Miscellaneous samples (specimen) TISSUE SPECIMEN FROM SKIN / Unknown 03/02/2025 11:33 AM CDT 03/03/2025 7:40 AM CDT Miscellaneous samples (specimen) TISSUE SPECIMEN FROM SKIN / Unknown 03/02/2025 11:33 AM CDT 03/03/2025 7:40 AM CDT us Sandy Ayala MD LAB - PATHOLOGY/CYTOLOGY ORD ERABLES Final Result DERMATOPATHOLOGY LABORATORY [facility] - Department of Dermatology [address], [address] [phone] documented in this encounter Visit Diagnoses Not on filedocumented in this encounter
--- OUTSIDE RECORDS SUMMARY | 2025-08-09 17:07 | XMS_ITS | Clinical Summary ---
Author Organization [facility] Address [address] [place] [address] Phone Care Team Providers Care On Site Property Manager Name Role Phone João Brown MD Primary Care Provider Allergies Active Allergy Reactions Criticality Noted Date Comments Penicillins Anaphylaxis,Rash High 04/08/2017 Other reaction(s): Blisters Other reaction(s): Unknown Medications lisinopril (PRINIVIL,ZESTR IL) 20 MG tablet 1 bid 5 Active Garlic 10 MG capsule 5 Active levothyroxine (SYNTHROID, LEVOTHROID) 50 MCG tablet 1 luke 6 Active clopidogrel (PLAVIX) 75 MG tablet 5 Active Cholecalciferol (VITAMIN D3) 5000 units capsule 1 daily 6 Active atorvastatin (LIPITOR) 80 MG tablet 1 tablet (80 mg) orally daily 0 7 Active aspirin (ASPIR-LOW) 81 MG EC tablet 1 daily 6 Active ranolazine (RANEXA) 500 MG 12 hr tablet 1 bid 6 Active insulin aspart (NovoLOG FLEXPEN) 100 UNIT/ML injection sliding scale 0 7 Active glucose blood (OneTouch Ultra) test strip USE 1 STRIP TO CHECK GLUCOSE 4 TIMES DAILY 0 Active Insulin Pen Needle (B-D ULTRAFINE III SHORT PEN) 31G X 8 MM misc USE 1 4 TIMES DAILY 0 Active Insulin Syringe 31G X 5/16 1 ML misc USE 1 SYRINGE 4 TIMES DAILY 0 Active isosorbide mononitrate (IMDUR) 30 MG 24 hr tablet 0 Active metoprolol succinate XL (TOPROL-XL) 100 MG 24 hr tablet Take 100 mg by mouth daily Active nitroglycerin (NITROSTAT) 0.4 MG SL tablet nitroglycerin 0.4 mg sublingual tablet 0 Active albuterol HFA (PROVENTIL HFA) 108 (90 Base) MCG/ACT inhaler 1 Active hydrALAZINE (APRESOLINE) 25 MG tablet 1 Active insulin degludec (Tresiba FlexTouch) 100 UNIT/ML injection Inject 42 Units under the skin daily 1 Active furosemide (LASIX) 40 MG tablet 1 Active gabapentin (NEURONTIN) 300 MG capsule 1 Active spironolactone (ALDACTONE) 25 MG tablet Take 1 tablet (25 mg total) by mouth 1 (one) time each day 30 tablet 11 1 Active Active Problems Problem Noted Date Diagnosed Date 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 Angina pectoris 06/22/2014 Obesity 03/23/2014 Coronary arteriosclerosis in [place] artery 10/19 Immunizations Immunization Administration Dates Next Due Fluzone High-Dose 05/29/2020 Influenza Split 05/20/2013 Influenza Split High Dose Preservative Free IM 1 Influenza TIV (IM) 06/10/2014 Influenza, Quadrivalent 05/29/2020 Influenza, Unspecified 05/12/2019 Influenza, split virus, trivalent, PF 05/31/2015 Moderna Sars-cov-2 Vaccination 10/13/2020,2020 Pneumococcal Conjugate 13-Valent 06/11/2019 Tdap 09/10/2017 Family History Medical History Relation Comments Malignant neoplastic disease Father Heart disease Mother Kidney disease Neg Hx Kidney stone Neg Hx Relation Status Comments Father Mother Social History Tobacco Use Types Packs/Day Years Used Date Smoking Tobacco: Never Smokeless Tobacco: Never Alcohol Use Standard Drinks/Week Comments Not Currently 0 (1 standard drink = 0.6 oz pur e alcohol) Sex and Gender Information Value Date Recorded Sex Assigned at Not on file Legal Sex Male 7:52 AM MST Gender Identity Not on file Sexual Orientation Not on file Last Filed Vital Signs Vital Sign Reading Time Taken Comments Blood Pressure 152/76 03/30/2021 10:19 AM CDT Pulse 60 03/30/2021 10:19 AM CDT Temperature 36.5 C (97.7 F) 03/30/2021 10:19 AM CDT Respiratory Rate - - Oxygen Saturation - - Inhaled Oxygen Concentration - - Weight 137 kg (301 lb) 03/30/2021 10:19 AM CDT Height 177.8 cm (5' 10) 03/30/2021 10:19 AM CDT Body Mass Index 43.19 03/30/2021 10:19 AM CDT Plan of Treatment Health Maintenance Due Date Last Done Comments Pneumococcal PPSV23/PCV13 65 + Years / Low and Medium Risk (2 of 3 - PCV20 or PCV21) 06/11/2020 06/11/2019 COVID-19 Vaccine (3 - 2024-2 6 season) 2025 10/13/2020, 09/07/2020 Influenza Vaccine (#1) 2025 9, 05/31/2015, 06/10/2014, Additional history exists Insurance MEDICARE GENERIC COMMERCIAL Care Teams On Site Property Manager Relationship Specialty Start Date End Date João Brown MD [address] [facility] [address] [place] [phone] PCP - General Internal Medicine 01/30/19
[2025-08-09 17:23] LABS: Add Urine Microscopic? YES; Appearance Urine Cloudy (Clear); Glucose Urine UA Negative (Negative); Leukocyte Esterase Ur Negative LEU/UL (Negative); Nitrate Urine Negative (Negative); Non Pathogenic Casts 0-2; Specific Grav Ur 1.009 (1.001-1.035)
[2025-08-09 17:45] LABS: Hematocrit 45.0 % (42.0-52.0); Hemoglobin 14.4 g/dL (14.0-18.0); Immature Granulocyte Percent A 0.1 % (0-0.5); Lymphocytes Absolute Auto 1.70 K/mm3 (0.9-3.2); Mean Corpuscular HGB Conc 32.0 g/dl (32-36); Mean Corpuscular Hemoglobin 26.9 pg (26-34); Mean Corpuscular Volume 84.0 fl (80-100); Nucleated Red Blood Cells Absolute Auto 0.000 K/mm3 (0.0-0.012); Nucleated Red Blood Cells Perc 0.0 % (0.0-0.2); Platelet Count Result 106 k/mm3 (150-375); Red Blood Count 5.36 M/mm3 (4.6-6.20); White Blood Count 7.2 K/mm3 (4.5-10.0)
[2025-08-09 17:55] LABS: Alanine Aminotransferase 24 U/L (6-50); Albumin Level 4.0 g/dL (3.5-5.1); Alkaline Phosphatase 109 U/L (38-126); Anion Gap 5 mmol/L (4-12); Aspartate Amino Transferase 30 U/L (17-59); Bilirubin,Total 0.7 mg/dL (0.2-1.3); Blood Urea Nitrogen 38 mg/dL (9-20); Calcium 9.4 mg/dL (8.4-10.2); Carbon Dioxide 27 mmol/L (22-30); Chloride 107 mmol/L (98-107); Estimated CRCL calculation 37 ml/min; Estimated Glomerular Filt Rate 32; Glucose 155 mg/dL (65-110); Lipase 124 U/L (23-300); Potassium 4.5 mmol/L (3.4-5.0); Sodium 139 mmol/L (137-145); Total Protein 6.8 g/dL (6.3-8.2)
[2025-08-09 21:24] LABS: Estimated CRCL calculation 34 ml/min; Estimated Glomerular Filt Rate 29
== END 2025-08-09 19:55 | disposition home or self-care (01) ==
PROVIDERS: Physician Assistant; Emergency Provider Emergency Medicine; PCP Family Medicine
DX: K63.89 Other specified diseases of intestine (principal); E86.0 Dehydration; E11.22 Type 2 diabetes mellitus with diabetic chronic kidney disease; I13.0 Hypertensive heart and chronic kidney disease with heart failure and stage 1 through stage 4 chronic kidney disease, or unspecified chronic kidney disease; N18.30 Chronic kidney disease, stage 3 unspecified; I50.9 Heart failure, unspecified; I25.10 Atherosclerotic heart disease of native coronary artery without angina pectoris; E11.42 Type 2 diabetes mellitus with diabetic polyneuropathy; I35.0 Nonrheumatic aortic (valve) stenosis; E03.9 Hypothyroidism, unspecified; E78.5 Hyperlipidemia, unspecified; N40.0 Benign prostatic hyperplasia without lower urinary tract symptoms; G47.33 Obstructive sleep apnea (adult) (pediatric); F41.9 Anxiety disorder, unspecified; Z66 Do not resuscitate; Z95.5 Presence of coronary angioplasty implant and graft; Z95.1 Presence of aortocoronary bypass graft; Z95.2 Presence of prosthetic heart valve; Z98.42 Cataract extraction status, left eye; Z98.41 Cataract extraction status, right eye; Z87.442 Personal history of urinary calculi; Z86.73 Personal history of transient ischemic attack (TIA), and cerebral infarction without residual deficits; I51.7 Cardiomegaly; K80.20 Calculus of gallbladder without cholecystitis without obstruction; Z79.4 Long term (current) use of insulin; Z79.899 Other long term (current) drug therapy; Z79.82 Long term (current) use of aspirin; Z79.01 Long term (current) use of anticoagulants
CPT/HCPCS: 36415; 74176; 80053; 81001; 83605; 83690; 85025; 99284